=== PATIENT | male | born 1950 | race Caucasian/White ===

== ENCOUNTER 2017-04-29 07:27 | Inpatient (IN) | payer MEDICARE ==
[2017-04-29 08:31] LABS: BASOPHIL 1.4 % (0-2.0); EOSINOPHIL 1.7 % (0-4.5); MCH 30.4 pg (25.7-33.7); MCHC 33.5 g/dl (32.0-35.9); MEAN CELL VOLUME 90.9 fl (80-96); MEAN PLT VOLUME 7.9 fl (7.5-11.1); PLATELET COUNT 367 K/MM3 (134-434); RDW 14.8 % (11.9-15.9)
[2017-04-29 08:41] LABS: URINE APPEARANCE CLEAR; URINE BILIRUBIN NEGATIVE (NEGATIVE); URINE BLOOD 1+ (NEGATIVE); URINE COLOR LTYELLOW; URINE GLUCOSE (UA) 1+ (NEGATIVE); URINE KETONE NEGATIVE (NEGATIVE); URINE LEUK ESTERASE NEGATIVE (NEGATIVE); URINE NITRITE NEGATIVE (NEGATIVE); URINE PROTEIN NEGATIVE (NEGATIVE); URINE UROBILINOGEN NEGATIVE mg/dL (0.2-1.0)
[2017-04-29 08:48] LABS: URINE RBC 1 /hpf (0-3); URINE WBC <1 /hpf (3-5)
[2017-04-29 08:50] LABS: ALBUMIN 3.7 g/dl (3.4-5.0); ANION GAP 9 (8-16); BILIRUBIN,TOTAL 0.4 mg/dL (0.2-1.0); CALCIUM 9.3 mg/dL (8.5-10.1); CO2 30 mmol/L (21-32); CREATININE 1.2 mg/dL (0.7-1.3); GLUCOSE,RANDOM 122 mg/dL (74-106); MAGNESIUM 2.3 mg/dL (1.8-2.4); SGOT/AST 28 U/L (15-37); SGPT/ALT 48 U/L (12-78); TOT PROT 7.2 g/dl (6.4-8.2)
[2017-04-29 08:52] LABS: ALK PHOS 72 U/L (45-117); TROPONIN I 0.05 ng/ml (0.00-0.05)
[2017-04-29 08:58] LABS: INR 1.01 (0.82-1.09); PROTHROMBIN TIME (PATIENT) 11.1 SEC (9.98-11.88)
[2017-04-29 09:01] LABS: ACTIVATED PTT 34.7 SECONDS (26.9-34.4)
--- NOTE | 2017-04-29 09:05 | PDOC ---
History of Present Illness <Maggie Carroll - Last Filed: 04/29/17 10:09> - General History Source: Patient Exam Limitations: No Limitations - History of Present Illness Initial Comments: 04/29/17 10:08 The patient is a 66 year old male, with a significant past medical history of polycythemia, HTN and mini-strokes, and blood clots who presents to the emergency department with progressive SOB for 3 days. Pt states that he woke up in the middle of the night gasping for air and was unable to sleep prompting him to come to the ED today. He reports reduced ET to 2 blocks. Patient said he is experiencing a left-sided "soreness" in his chest. Pt states that he gets his blood drawn every two weeks but hasnt had his blood drawn for 2.5 weeks. He states that he feels better when he gets his blood drawn and he no longer feels tired. He also reports urinary frequency. PMD is Dr. Shaikh. He denies any recent fevers, chills, headache or dizziness. He denies any recent nausea, vomit, abdominal pain. He denies any recent dysuria, frequency, urgency or hematuria, focal weakness or numbness. Allergies: NKA Past surgical history: meniscus surgery 1 year ago Urologist: Dr. Mir Orthopedic: Dr. Logan. 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, SHORT TERM PROBLEMS) HTN: Yes Suicide Attempt (Hx): No - Surgical History Abdominal Surgery: Yes (HERNIA REPAIR) Orthopedic Surgery: Yes (SHOULDER SX) - Psycho/Social/Smoking Cessation Hx Anxiety: No Suicidal Ideation: No Smoking History: Never smoked Have you smoked in the past 12 months: No Hx Alcohol Use: No Drug/Substance Use Hx: No Substance Use Type: None Hx Substance Use Treatment: No <Nicky Stanley - Last Filed: 04/29/17 14:22> 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 History Allergies/Adverse Reactions: Allergies Allergy/AdvReac Type Severity Reaction Status Date / Time No Known Drug Allergies Allergy Verified 04/29/17 07:33 Home Medications: Ambulatory Orders Amlodipine Besylate [Norvasc -] 10 mg PO DAILY #14 tablet 03/23/15 Losartan Potassium [Cozaar -] 100 mg PO DAILY #14 tablet 03/23/15 Clonidine Patch [Catapres Tts Patch -] 0.3 mg TD WEEKLY 11/22/15 Review of Systems - Review of Systems Able to Perform ROS?: Yes Comments:: 04/29/17 10:08 GENERAL/CONSTITUTIONAL: No fever or chills. No weakness. HEAD, EYES, EARS, NOSE AND THROAT: No change in vision. No ear pain or discharge. No sore throat. CARDIOVASCULAR:+chest pain. +shortness of breath. RESPIRATORY: No cough, wheezing, or hemoptysis. GASTROINTESTINAL: No nausea, vomiting, diarrhea or constipation. GENITOURINARY: + urinary frequency. No dysuria. MUSCULOSKELETAL: No joint or muscle swelling or pain. No neck or back pain. SKIN: No rash NEUROLOGIC: No headache, vertigo, loss of consciousness, or change in strength/ sensation. ENDOCRINE: No increased thirst. No abnormal weight change. HEMATOLOGIC/LYMPHATIC:, +history of blood clots. No anemia, easy bleeding. ALLERGIC/IMMUNOLOGIC: No hives or skin allergy. <John Mckinley - Last Filed: 04/29/17 13:19> *Physical Exam - Vital Signs Last Vital Signs Temp Pulse Resp BP Pulse Ox 98.0 F 89 18 181/118 98 04/29/17 07:31 04/29/17 08:38 04/29/17 08:38 04/29/17 08:38 04/29/17 08:38 <Maggie Carroll - Last Filed: 04/29/17 10:09> - Vital Signs Last Vital Signs Temp Pulse Resp BP Pulse Ox 98.0 F 89 18 181/118 98 04/29/17 07:31 04/29/17 08:38 04/29/17 08:38 04/29/17 08:38 04/29/17 08:38 - Physical Exam Comments: 04/29/17 10:08 GENERAL: Awake, alert, and fully oriented, in mild resp distress HEAD: No signs of trauma EYES: PERRLA, EOMI, sclera anicteric, conjunctiva clear ENT: Auricles normal inspection, hearing grossly normal, nares patent, oropharynx clear without exudates. Moist mucosa NECK: Normal ROM, supple, no lymphadenopathy, JVD, or masses LUNGS: Breath sounds equal, clear to auscultation bilaterally. No wheezes, and no crackles. No increased work of breathing HEART: Regular rate and rhythm, normal S1 and S2, no murmurs, rubs or gallops ABDOMEN: Soft, nontender, normoactive bowel sounds. No guarding, no rebound. No masses EXTREMITIES: No calf tenderness, no swelling in lower extremeties. Normal range of motion, no edema. No clubbing or cyanosis. No cords, erythema. NEUROLOGICAL: Normal speech, cranial nerves intact, negative pronator drift, 5/ 5 strength in all 4 extremities, normal sensation to light touch in all 4 extremities, normal cerebellar exam, normal gait, normal reflexes and tone SKIN: Warm, Dry, normal turgor, no rashes or lesions noted. <John Mckinley - Last Filed: 04/29/17 13:19> - Vital Signs Last Vital Signs Temp Pulse Resp BP Pulse Ox 98.0 F 89 18 181/118 98 04/29/17 07:31 04/29/17 08:38 04/29/17 08:38 04/29/17 08:38 04/29/17 08:38 <Nicky Stanley - Last Filed: 04/29/17 14:22> Heart Score/ECG Review - ECG Impressions Comment:: 04/29/17 10:[address] Stanley EKG Interpretation: Normal sinus rhythm rate of 70, normal axis, normal intervals. T-wave inversions 1,2,3 avf, v6, st depressions, 1mm in leads 2,[address] elevation in v2 and v3. The only change from his previous EKG from March 15, 2015 is the t wave in v5 is pseudo-normalized. <John Mckinley - Last Filed: 04/29/17 13:19> - History History: Moderately suspicious - Electrocardiogram EKG: Significant ST-depression - Age Age: >/= 65 - Risk Factors Risk Factors Heart Score: Yes Hx Hypertension, Yes Positive family hx of cardiac disease, Yes Hx Obesity Based on the list above the patient has:: 1-2 risk factors - Troponin Troponin: </= normal limit - Score Heart Score - Total: 6 <Nicky Stanley - Last Filed: 04/29/17 14:22> ED Treatment Course - LABORATORY CBC & Chemistry Diagram: 04/29/17 08:15 04/29/17 08:15 - ADDITIONAL ORDERS Additional order review: Laboratory Results 04/29/17 04/29/17 04/29/17 08:18 08:15 08:15 INR PTT (Actin FS) Sodium 139 Potassium 4.4 Chloride 100 Carbon Dioxide 30 Anion Gap 9 BUN 16 D Creatinine 1.2 Creat Clearance w eGFR > 60 Random Glucose 122 H Calcium 9.3 Magnesium 2.3 Total Bilirubin 0.4 D AST 28 D ALT 48 D Alkaline Phosphatase 72 D Troponin I 0.05 D B-Natriuretic Peptide Total Protein 7.2 Albumin 3.7 Urine Color Ltyellow Urine Appearance Clear Urine pH 6.0 Urine Protein Negative Urine Glucose (UA) 1+ H Urine Ketones Negative Urine Blood 1+ H Urine Nitrite Negative Urine Bilirubin Negative Urine Urobilinogen Negative Ur Leukocyte Esterase Negative Urine RBC 1 Urine WBC <1 Blood Type O POSITIVE Antibody Screen Negative 04/29/17 04/29/17 08:15 08:15 INR 1.01 PTT (Actin FS) 34.7 H Sodium Potassium Chloride Carbon Dioxide Anion Gap BUN Creatinine Creat Clearance w eGFR Random Glucose Calcium Magnesium Total Bilirubin AST ALT Alkaline Phosphatase Troponin I B-Natriuretic Peptide 384.30 H Total Protein Albumin Urine Color Urine Appearance Urine pH Urine Protein Urine Glucose (UA) Urine Ketones Urine Blood Urine Nitrite Urine Bilirubin Urine Urobilinogen Ur Leukocyte Esterase Urine RBC Urine WBC Blood Type Antibody Screen 04/29/17 08:15 RBC 5.77 H MCV 90.9 MCHC 33.5 RDW 14.8 MPV 7.9 Neutrophils % 77.0 Lymphocytes % 13.0 Monocytes % 6.9 Eosinophils % 1.7 D Basophils % 1.4 - RADIOLOGY Radiograph Interpretation: 04/29/17 09:47 Chest X-Ray Reported by: Giovani Chan Impression:No significant interval change or acute lung disease is present <Maggie Carroll - Last Filed: 04/29/17 10:09> - LABORATORY CBC & Chemistry Diagram: 04/29/17 08:15 04/29/17 08:15 - ADDITIONAL ORDERS Additional order review: Laboratory Results 04/29/17 04/29/17 04/29/17 08:18 08:15 08:15 INR PTT (Actin FS) Sodium 139 Potassium 4.4 Chloride 100 Carbon Dioxide 30 Anion Gap 9 BUN 16 D Creatinine 1.2 Creat Clearance w eGFR > 60 Random Glucose 122 H Calcium 9.3 Magnesium 2.3 Total Bilirubin 0.4 D AST 28 D ALT 48 D Alkaline Phosphatase 72 D Troponin I 0.05 D B-Natriuretic Peptide Total Protein 7.2 Albumin 3.7 Urine Color Ltyellow Urine Appearance Clear Urine pH 6.0 Urine Protein Negative Urine Glucose (UA) 1+ H Urine Ketones Negative Urine Blood 1+ H Urine Nitrite Negative Urine Bilirubin Negative Urine Urobilinogen Negative Ur Leukocyte Esterase Negative Urine RBC 1 Urine WBC <1 Blood Type O POSITIVE Antibody Screen Negative 04/29/17 04/29/17 08:15 08:15 INR 1.01 PTT (Actin FS) 34.7 H Sodium Potassium Chloride Carbon Dioxide Anion Gap BUN Creatinine Creat Clearance w eGFR Random Glucose Calcium Magnesium Total Bilirubin AST ALT Alkaline Phosphatase Troponin I B-Natriuretic Peptide 384.30 H Total Protein Albumin Urine Color Urine Appearance Urine pH Urine Protein Urine Glucose (UA) Urine Ketones Urine Blood Urine Nitrite Urine Bilirubin Urine Urobilinogen Ur Leukocyte Esterase Urine RBC Urine WBC Blood Type Antibody Screen 04/29/17 08:15 RBC 5.77 H MCV 90.9 MCHC 33.5 RDW 14.8 MPV 7.9 Neutrophils % 77.0 Lymphocytes % 13.0 Monocytes % 6.9 Eosinophils % 1.7 D Basophils % 1.4 <John Mckinley - Last Filed: 04/29/17 13:19> - LABORATORY CBC & Chemistry Diagram: 04/29/17 08:15 04/29/17 08:15 - ADDITIONAL ORDERS Additional order review: Laboratory Results 04/29/17 04/29/17 04/29/17 08:18 08:15 08:15 Sodium 139 Potassium 4.4 Chloride 100 Carbon Dioxide 30 Anion Gap 9 BUN 16 D Creatinine 1.2 Creat Clearance w eGFR > 60 Random Glucose 122 H Calcium 9.3 Magnesium 2.3 Total Bilirubin 0.4 D AST 28 D ALT 48 D Alkaline Phosphatase 72 D Troponin I 0.05 D B-Natriuretic Peptide 384.30 H Total Protein 7.2 Albumin 3.7 Urine Color Ltyellow Urine Appearance Clear Urine pH 6.0 Urine Protein Negative Urine Glucose (UA) 1+ H Urine Ketones Negative Urine Blood 1+ H Urine Nitrite Negative Urine Bilirubin Negative Urine Urobilinogen Negative Ur Leukocyte Esterase Negative Urine RBC 1 Urine WBC <1 04/29/17 08:15 RBC 5.77 H MCV 90.9 MCHC 33.5 RDW 14.8 MPV 7.9 Neutrophils % 77.0 Lymphocytes % 13.0 Monocytes % 6.9 Eosinophils % 1.7 D Basophils % 1.4 - RADIOLOGY Radiology Studies Ordered: Category Date Time Status CHEST X-RAY PORTABLE* [RAD] Stat Radiology 04/29/17 08:09 Completed <Nicky Stanley - Last Filed: 04/29/17 14:22> Medical Decision Making - Medical Decision Making 04/29/17 09:16 66-year-old male history of polycythemia presents with progressive shortness of breath for 3 days. Vitals remarkable for hypertension to the 180s over 70s. Oxygenation ranges between 95 and 99% on the monitor. Exam is unremarkable, with clear lungs, no LE edema or pain. Concern given patient's history for pulmonary embolism, however ACS versus CHF versus polycythemia may be etiology of patient's shortness of breath especially given the fact the patient has not had phlebotomy for 2.5 weeks. Plan as follows: -labs -CXR -consider CTA Chest -likely admit 04/29/17 10:01 CBC,CMP WBC 14.0 K/mm3 (4.0-10.0) H D 04/29/17 08:15 RBC 5.77 M/mm3 (4.00-5.60) H 04/29/17 08:15 Hgb 17.6 GM/dL (11.7-16.9) H 04/29/17 08:15 Hct 52.5 % (35.4-49) H 04/29/17 08:15 MCV 90.9 fl (80-96) 04/29/17 08:15 MCH 30.4 pg (25.7-33.7) 04/29/17 08:15 MCHC 33.5 g/dl (32.0-35.9) 04/29/17 08:15 RDW 14.8 % (11.9-15.9) 04/29/17 08:15 Plt Count 367 K/MM3 (134-434) 04/29/17 08:15 MPV 7.9 fl (7.5-11.1) 04/29/17 08:15 Neutrophils % 77.0 % (42.8-82.8) 04/29/17 08:15 Lymphocytes % 13.0 % (8-40) 04/29/17 08:15 Monocytes % 6.9 % (3.8-10.2) 04/29/17 08:15 Eosinophils % 1.7 % (0-4.5) D 04/29/17 08:15 Basophils % 1.4 % (0-2.0) 04/29/17 08:15 Sodium 139 mmol/L (136-145) 04/29/17 08:15 Potassium 4.4 mmol/L (3.5-5.1) 04/29/17 08:15 Chloride 100 mmol/L (98-107) 04/29/17 08:15 Carbon Dioxide 30 mmol/L (21-32) 04/29/17 08:15 Anion Gap 9 (8-16) 04/29/17 08:15 BUN 16 mg/dL (7-18) D 04/29/17 08:15 Creatinine 1.2 mg/dL (0.7-1.3) 04/29/17 08:15 Creat Clearance w eGFR > 60 (>60) 04/29/17 08:15 Random Glucose 122 mg/dL (74-106) H 04/29/17 08:15 Calcium 9.3 mg/dL (8.5-10.1) 04/29/17 08:15 Magnesium 2.3 mg/dL (1.8-2.4) 04/29/17 08:15 Total Bilirubin 0.4 mg/dL (0.2-1.0) D 04/29/17 08:15 AST 28 U/L (15-37) D 04/29/17 08:15 ALT 48 U/L (12-78) D 04/29/17 08:15 Alkaline Phosphatase 72 U/L (45-117) D 04/29/17 08:15 Troponin I 0.05 ng/ml (0.00-0.05) D 04/29/17 08:15 B-Natriuretic Peptide 384.30 pg/ml (5-125) H 04/29/17 08:15 Total Protein 7.2 g/dl (6.4-8.2) 04/29/17 08:15 Albumin 3.7 g/dl (3.4-5.0) 04/29/17 08:15 Hemoglobin elevated at 17.6. Troponin negative. BNP mildly elevated - possible CHF? CXR clear. We'll order a CTA of the chest to evaluate for pulmonary embolism. 04/29/17 13:22 CTA chest negative for PE. Concern for ACS, pt is moderate risk. Ordered trop 2 , paged Dr. Shaikh to discuss the case. 04/29/17 13:55 We have not heard from Dr. Shaikh. I spoke with the patient and his son and updated him about all of the lab and radiology findings. I discussed that I was concerned about a cardiac etiology for his chest pain and shortness of breath. Will page the hospitalist to admit the patient for an ACS rule out. 04/29/17 14:17 Hospitalist does not admit for Dr. Shaikh. Spoke with Dr. Ying who admits for him and agrees with admission for telemetry and requests that we call Dr. Frazier from cardiology and Dr. Grace from hematology. We have paged both doctors in our waiting a callback. <Nicky Stanley - Last Filed: 04/29/17 14:22> *DC/Admit/Observation/Transfer - Attestations Scribe Attestion: 04/29/17 10:10 Documentation prepared by Maggie Carroll, acting as manager medical affairs for Nicky Stanley MD. <Maggie Carroll - Last Filed: 04/29/17 10:09> <John Mckinley - Last Filed: 04/29/17 13:19> - Discharge Dispostion Admit: Yes - Attestations Physician Attestion: 04/29/17 13:55 I, Dr. Nicky Stanley MD, attest that this document has been prepared under my direction and personally reviewed by me in its entirety. I further attest, that it accurately reflects all work, treatment, procedures and medical decision -making performed by me. <Nicky Stanley - Last Filed: 04/29/17 14:22> Diagnosis at time of Disposition: Chest pain Qualifiers: Chest pain type: other chest pain Qualified Code(s): R07.89 - Other chest pain - Discharge Dispostion Condition at time of disposition: Stable - Referrals Referrals: Tulio Shaikh [Primary Care Provider] -
--- NOTE | 2017-04-29 16:23 | CON.CARD ---
Consult Consult Specialty:: Cardiology Referred by:: ED: Dr. Stanley and Dr. Shaikh Reason for Consultation:: Worsening exertional dyspnea and chest pain. - History of Present Illness History of Present Illness: 66 year old rae with a PMHx of HTN, TIAs, polycythemia vera, and blood clots who presents to the emergency department 04/29/2017 with progressive shortness breath and chest discomfort. Patient has been experiencing exertional shortness of breath and chest discomfort for 3 day. His exercise tolerance decreased markedly. He had one episode of PND last night. But he has no shortness of breath or chest pain at rest. He denies palpitation, dizziness, syncope, near syncope, edema or orthopnea. He states that he gets his blood drawn every two weeks but hasnt had his blood drawn for 2.5 weeks. He states that he feels better when he gets his blood drawn and he no longer feels tired. He also reports urinary frequency. His ECG 04/29/2017 showed sinus rhythm. LVH with inferolateral ischemia. Troponin is within normal range. Pro-BNP is mildly elevated. 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 Cardio/Vascular: Yes: HTN Heme/Onc: Yes: Other (Polycethemia vera) - Alcohol/Substance Use Hx Alcohol Use: No - Smoking History Smoking history: Never smoked Have you smoked in the past 12 months: No - Social History History of Recent Travel: No Home Medications - Allergies Allergies/Adverse Reactions: Allergies Allergy/AdvReac Type Severity Reaction Status Date / Time No Known Drug Allergies Allergy Verified 04/29/17 07:33 - Home Medications Home Medications: Ambulatory Orders Losartan Potassium [Cozaar -] 100 mg PO DAILY #14 tablet 03/23/15 Clonidine Patch [Catapres Tts Patch -] 0.3 mg TD WEEKLY 11/22/15 Amlodipine Besylate [Norvasc -] 5 mg PO DAILY 04/29/17 [place]-3 Fatty Acids [[place]-3] 1,000 mg PO DAILY 04/29/17 Review of Systems - Review of Systems Constitutional: reports: No Symptoms Eyes: reports: No Symptoms HENT: reports: No Symptoms Neck: reports: No Symptoms Cardiovascular: reports: Chest Pain, Shortness of Breath Respiratory: reports: Exercise Intolerance, SOB, SOB on Exertion Gastrointestinal: reports: No Symptoms Genitourinary: reports: No Symptoms Musculoskeletal: reports: No Symptoms Integumentary: reports: No Symptoms Neurological: reports: No Symptoms Endocrine: reports: No Symptoms Hematology/Lymphatic: reports: Other (Polycythemia vera) Vital Signs: Vital Signs Temperature 98.6 F 04/29/17 15:11 Pulse Rate 81 04/29/17 15:11 Respiratory Rate 16 04/29/17 15:11 Blood Pressure 177/98 04/29/17 15:11 O2 Sat by Pulse Oximetry (%) 96 04/29/17 15:11 Constitutional: Yes: Well Nourished, No Distress, Calm, Other (Facial plethora) Eyes: Yes: WNL, Conjunctiva Clear HENT: Yes: WNL Neck: Yes: Supple, Trachea Midline Respiratory: Yes: Regular, Rales (Minimal bibasilar rales.), Other (Minimal bibasilar rales.) Gastrointestinal: Yes: Normal Bowel Sounds, Soft, Abdomen, Obese Renal/: Yes: WNL Cardiovascular: Yes: Regular Rate and Rhythm JVD: No Carotid Bruit: No PMI: Non-Displaced Heart Sounds: Yes: S1, S2 Musculoskeletal: Yes: WNL Extremities: Yes: WNL Edema: No Peripheral Pulses WNL: Yes Peripheral Pulses: 1+ Left Carotid, 1+ Right Carotid, 1+ Left Femoral, 1+ Right Femoral, 1+ Left Popliteal, 1+ Right Popliteal, 1+ Left Doralis Pedis, 1+ Right Dorsalis Pedis Neurological: Yes: WNL, Alert, Oriented - Other Data Labs, Other Data: CBC, BMP 04/29/17 08:15 04/29/17 08:15 INR, PTT INR 1.01 (0.82-1.09) 04/29/17 08:15 Troponin, BNP 04/29/17 04/29/17 04/29/17 08:15 08:15 14:00 Troponin I 0.05 D 0.04 B-Natriuretic Peptide 384.30 H Troponin, BNP 04/29/17 04/29/17 04/29/17 08:15 08:15 14:00 Troponin I 0.05 D 0.04 B-Natriuretic Peptide 384.30 H Imaging - Results X-ray: Report Reviewed (No pulmonary congestion.) EKG: Image Reviewed (Sinus rhythm, LVH. Inferolateral ischemia.) Assessment/Plan 66 year old rae with a PMHx of HTN, TIAs, polycythemia vera, and blood clots who presents to the emergency department 04/29/2017 with progressive shortness breath and chest discomfort. ECG 04/29/2017 showed sinus rhythm. LVH with inferolateral ischemia. Troponin is within normal range. Pro-BNP is mildly elevated. 1) Exertional chest discomfort with risk factors of CAD and ECG abnormalities, suggestive of myocardial ischemia. Pharmacological (Persantine) nuclear stress test to rule out myocardial ischemia. 2) Worsening dyspnea with mild pulmonary congestion on PE and elevated pro-BNP. Avoid diuretic before repeat phlebotomy for polycytemia. Obtain echo for cardiac function. 3) HTN. Resume Norvasc, Losartan and Clonidine patch. Monitor BP.
[2017-04-29 16:37] VITALS: BMI 28.0
[2017-04-29] MEDS ORDERED: ACETAMINOPHEN 325 MG TABLET (FP) PO PRN (17:53)
[2017-04-29] MEDS ORDERED: cloNIDine-TTS 0.3 MG /24 HRS PATCH.TDWK TD SCH (18:15)
[2017-04-29] MEDS ORDERED: amLODIPine BESYLATE 5 MG TABLET (FP) ONE (18:26)
[2017-04-29] MEDS ORDERED: LOSARTAN POTASSIUM 25 MG TABLET ONE (18:27)
[2017-04-29] MEDS: LOSARTAN POTASSIUM 50 MG TABLET (FP) PO SCH (18:32)
[2017-04-29] MEDS: amLODIPine BESYLATE 5 MG TABLET (FP) PO SCH (18:32)
[2017-04-29 22:10] LABS: TROPONIN I 0.04 ng/ml (0.00-0.05)
[2017-04-29] MEDS ORDERED: PT OWN MED DRAWER 7, Y5N ONE (22:51)
[2017-04-29] MEDS ORDERED: ZOLPIDEM TARTRATE 5 MG TABLET PO ONE (23:00)
[2017-04-30 07:44] LABS: ALBUMIN 3.4 g/dl (3.4-5.0); ANION GAP 9 (8-16); CALCIUM 8.7 mg/dL (8.5-10.1); CO2 31 mmol/L (21-32); CREATININE 1.2 mg/dL (0.7-1.3); GLUCOSE,RANDOM 111 mg/dL (74-106); SGOT/AST 25 U/L (15-37); SGPT/ALT 43 U/L (12-78)
[2017-04-30 07:46] LABS: ALK PHOS 63 U/L (45-117); BILIRUBIN,TOTAL 0.8 mg/dL (0.2-1.0); TOT PROT 6.5 g/dl (6.4-8.2)
[2017-04-30 08:18] LABS: MCH 30.5 pg (25.7-33.7); MCHC 33.2 g/dl (32.0-35.9); MEAN CELL VOLUME 91.8 fl (80-96); MEAN PLT VOLUME 8.4 fl (7.5-11.1); PLATELET COUNT 354 K/MM3 (134-434); RDW 15.2 % (11.9-15.9); WHITE BLOOD COUNT 12.4 K/mm3 (4.0-10.0)
[2017-04-30] MEDS ORDERED: DIPYRIDAMOLE 50 MG/10 ML VIAL IVPB ONE (10:51)
[2017-04-30] MEDS ORDERED: DIPYRIDAMOLE STRESS TEST 50 MG in DEXTROSE 5%-WATER - 40 ML IVPB ONE (13:30)
--- NOTE | 2017-04-30 14:18 | CON.PULM ---
Consult Consult Specialty:: PULMONARY Referred by:: Dr. Ying Reason for Consultation:: shortness of breath - History of Present Illness Chief Complaint: chest pain History of Present Illness: 66yo male with h/o HTN, polycythemia vera, h/o TIA who presents with worsening shortness of breath and chest pain. He states he has not been phlebotomized recently, usually gets it done every 2 weeks. No fevers, chills or sweats. No palpitations. Denies leg swelling, sleeps on 1 pillow but reports frequent paroxysmal nocturnal dyspnea. Found to be hypertensive, now just back from his nuclear stress test. Shortness of breath has resolved with better control of his blood pressure. He has been told that he snores. He does wake up with gasping sensations during the night. He does not feel rested upon awakening and reports excessive daytime somnolence. 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 Cardio/Vascular: Yes: HTN - Alcohol/Substance Use Hx Alcohol Use: No - Smoking History Smoking history: Never smoked Have you smoked in the past 12 months: No - Social History History of Recent Travel: No Home Medications - Allergies Allergies/Adverse Reactions: Allergies Allergy/AdvReac Type Severity Reaction Status Date / Time No Known Drug Allergies Allergy Verified 04/29/17 07:33 - Home Medications Home Medications: Ambulatory Orders Losartan Potassium [Cozaar -] 100 mg PO DAILY #14 tablet 03/23/15 Clonidine Patch [Catapres Tts Patch -] 0.3 mg TD WEEKLY 11/22/15 Amlodipine Besylate [Norvasc -] 5 mg PO DAILY 04/29/17 [place]-3 Fatty Acids [[place]pi[place]-3] 1,000 mg PO DAILY 04/29/17 Review of Systems - Review of Systems Constitutional: denies: Chills, Fever Eyes: denies: Recent Change in Vision HENT: denies: Nasal Congestion, Throat Pain Neck: denies: Stiffness, Tenderness Cardiovascular: reports: Chest Pain, Shortness of Breath. denies: Edema, Palpitations Respiratory: reports: SOB. denies: Cough, Hemoptysis, Wheezing Gastrointestinal: denies: Abdominal Pain, Nausea, Vomiting Genitourinary: denies: Dysuria, Hematuria Neurological: denies: Dizziness, Headache Endocrine: denies: Unexplained Weight Loss Physical Exam Vital Sings: Vital Signs Temperature 98.2 F 04/30/17 10:00 Pulse Rate 72 04/30/17 10:00 Respiratory Rate 16 04/30/17 10:00 Blood Pressure 162/80 04/30/17 10:00 O2 Sat by Pulse Oximetry (%) 97 04/30/17 09:00 Constitutional: Yes: Calm Eyes: Yes: Conjunctiva Clear, EOM Intact HENT: Yes: Atraumatic, Normocephalic Neck: Yes: Supple, Trachea Midline Cardiovascular: Yes: Regular Rate and Rhythm Respiratory: Yes: Diminished (decreased breath sounds at the bases) ...Clubbing: No Gastrointestinal: Yes: Normal Bowel Sounds, Soft. No: Tenderness Edema: No Neurological: Yes: Alert, Oriented Labs: CBC, BMP 04/30/17 05:35 04/30/17 05:35 Imaging - Results Chest X-ray: Report Reviewed, Image Reviewed Cat Scan: Report Reviewed, Image Reviewed Problem List - Problems (1) Chest pain Code(s): R07.9 - CHEST PAIN, UNSPECIFIED Qualifiers: Chest pain type: other chest pain Qualified Code(s): R07.89 - Other chest pain; R07.8 - Other chest pain (2) Hypertension Code(s): I10 - ESSENTIAL (PRIMARY) HYPERTENSION Qualifiers: Hypertension type: essential hypertension (3) Polycythemia Code(s): D75.1 - SECONDARY POLYCYTHEMIA (4) Obstructive sleep apnea Code(s): G47.33 - OBSTRUCTIVE SLEEP APNEA (ADULT) (PEDIATRIC) Assessment/Plan Chest Pain/Shortness of Breath ?Hypertensive Urgency Likely Obstructive Sleep Apnea Polycythemia Vera - BP control - f/u stress test - echocardiogram - consult hematology for phlebotomy - will need outpt PSG Thank you for this consult Tulio Lynne MD
[2017-04-30] MEDS: LOSARTAN POTASSIUM 50 MG TABLET (FP) PO SCH (14:38)
[2017-04-30] MEDS: amLODIPine BESYLATE 5 MG TABLET (FP) PO SCH (14:38)
--- NOTE | 2017-04-30 15:04 | PN ---
Progress Note, Physician Chief Complaint: Patient appears comfortable. He has no recurrent chest pain or SOB at rest. History of Present Illness: 66 year old rae with a PMHx of HTN, TIAs, polycythemia vera, and blood clots who presents to the emergency department 04/29/2017 with progressive shortness breath and chest discomfort. Patient has been experiencing exertional shortness of breath and chest discomfort for 3 day. His exercise tolerance decreased markedly. He had one episode of PND last night. But he has no shortness of breath or chest pain at rest. He denies palpitation, dizziness, syncope, near syncope, edema or orthopnea. He states that he gets his blood drawn every two weeks but hasnt had his blood drawn for 2.5 weeks. He states that he feels better when he gets his blood drawn and he no longer feels tired. He also reports urinary frequency. His ECG 04/29/2017 showed sinus rhythm. LVH with inferolateral ischemia. Troponin is within normal range. Pro-BNP is mildly elevated. Persantine nuclear stress test 04/30/2017 revealed small fixed defect in the base to mid inferior wall. No stress induced ischemia. Gated study showed moderate LV systolic dysfunction. LVEF = 34%. Echo is pending. - Current Medication List Current Medications: Active Medications Acetaminophen (Tylenol -) 650 mg PO Q6H PRN PRN Reason: FEVER OR PAIN Amlodipine Besylate (Norvasc -) 5 mg PO DAILY [facility] Last Admin: 04/30/17 14:38 Dose: 5 mg Clonidine HCl (Catapres Tts Patch -) 0.3 mg TD We@10 [facility] Last Admin: 04/29/17 18:32 Dose: 0.3 mg Losartan Potassium (Cozaar -) 100 mg PO DAILY [facility] Last Admin: 04/30/17 14:38 Dose: 100 mg - Objective Vital Signs: Vital Signs Temperature 98.2 F 04/30/17 10:00 Pulse Rate 72 04/30/17 10:00 Respiratory Rate 16 04/30/17 10:00 Blood Pressure 162/80 04/30/17 10:00 O2 Sat by Pulse Oximetry (%) 97 04/30/17 09:00 Constitutional: Yes: Well Nourished, No Distress Eyes: Yes: WNL, Conjunctiva Clear HENT: Yes: Atraumatic, Normocephalic Neck: Yes: WNL, Supple, Trachea Midline Cardiovascular: Yes: Regular Rate and Rhythm, S1, S2 Respiratory: Yes: Regular, CTA Bilaterally Gastrointestinal: Yes: Normal Bowel Sounds, Soft ...Rectal Exam: Yes: Deferred Musculoskeletal: Yes: WNL Extremities: Yes: WNL Edema: No Peripheral Pulses WNL: Yes Labs: CBC, BMP 04/30/17 05:35 04/30/17 05:35 INR, PTT INR 1.01 (0.82-1.09) 04/29/17 08:15 Assessment/Plan 66 year old rae with a PMHx of HTN, TIAs, polycythemia vera, and blood clots who presents to the emergency department 04/29/2017 with progressive shortness breath and chest discomfort. ECG 04/29/2017 showed sinus rhythm. LVH with inferolateral ischemia. Troponin is within normal range. Pro-BNP is mildly elevated. 1) Exertional chest discomfort with risk factors of CAD and ECG abnormalities. Persantine nuclear stress test 04/30/2017 showed a small fixed defect in the inferior wall without stress induced ischemia. Moderate LV systolic function with LVEF 34% from gated study. Echo is pending. Add Aspirin 81 mg daily. 2) Worsening dyspnea with mild pulmonary congestion on PE and elevated pro-BNP. Pulmonary consult appreciated. Avoid diuretic before repeat phlebotomy for polycytemia. Echo is pending.. 3) HTN. BP is elevated. Increase Norvasc to 10 mg daily. Continue Losartan and Clonidine patch. Monitor BP.
--- NOTE | 2017-04-30 16:22 | CONSULT ---
Consult Consult Specialty:: infectious diseases Reason for Consultation:: leukocytosis - History of Present Illness Chief Complaint: stress,high bp History of Present Illness: 66yo male with h/o HTN, polycythemia vera, h/o TIA who presents with worsening shortness of breath and chest pain. He states he has not been phlebotomized recently, usually gets it done every 2 weeks. No fevers, chills or sweats. No palpitations. patient mentions that he becomes short of breath and he came here because his bp had gone very high Currently patient is abck fro stress test and is comfortable patients face looks flushed Denies leg swelling, of note is that he gets up in the middle of night and feels very sob and then he setteles down patient was admitted and worked up and found to have leukocytosis which is improving - History Source History Provided By: Patient Limitations to Obtaining History: No Limitations 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 History RECYCLER: Yes: TIA Cardio/Vascular: Yes: HTN - Alcohol/Substance Use Hx Alcohol Use: No - Smoking History Smoking history: Never smoked Have you smoked in the past 12 months: No - Social History History of Recent Travel: No Home Medications - Allergies Allergies/Adverse Reactions: Allergies Allergy/AdvReac Type Severity Reaction Status Date / Time No Known Drug Allergies Allergy Verified 04/29/17 07:33 - Home Medications Home Medications: Ambulatory Orders Losartan Potassium [Cozaar -] 100 mg PO DAILY #14 tablet 03/23/15 Clonidine Patch [Catapres Tts Patch -] 0.3 mg TD WEEKLY 11/22/15 Amlodipine Besylate [Norvasc -] 5 mg PO DAILY 04/29/17 [place]-3 Fatty Acids [[place]-3] 1,000 mg PO DAILY 04/29/17 Review of Systems - Review of Systems Constitutional: reports: Other Eyes: reports: No Symptoms HENT: reports: No Symptoms Neck: reports: No Symptoms Cardiovascular: reports: Chest Pain Respiratory: reports: SOB, SOB on Exertion Gastrointestinal: reports: No Symptoms Genitourinary: reports: No Symptoms Musculoskeletal: reports: No Symptoms Integumentary: reports: No Symptoms Neurological: reports: No Symptoms Endocrine: reports: No Symptoms Hematology/Lymphatic: reports: No Symptoms Psychiatric: reports: No Symptoms Physical Exam Vital Signs: Vital Signs Temperature 98.6 F 04/30/17 15:00 Pulse Rate 75 04/30/17 15:00 Respiratory Rate 16 04/30/17 15:00 Blood Pressure 133/68 04/30/17 15:00 O2 Sat by Pulse Oximetry (%) 97 04/30/17 09:00 Constitutional: Yes: No Distress, Calm, Other Eyes: Yes: Conjunctiva Clear HENT: Yes: Atraumatic, Other (flushed face) Neck: Yes: Supple Cardiovascular: Yes: Regular Rate and Rhythm Respiratory: Yes: Regular, Poor Air Entry (bases) Gastrointestinal: Yes: Normal Bowel Sounds, Soft Musculoskeletal: Yes: WNL Extremities: Yes: WNL Neurological: Yes: Alert, Oriented Psychiatric: Yes: Alert, Oriented Labs: CBC, BMP 04/30/17 05:35 04/30/17 05:35 Imaging - Results Chest X-ray: Report Reviewed, Image Reviewed Cat Scan: Report Reviewed, Image Reviewed Assessment/Plan Problem List - Problems (1) Chest pain Code(s): R07.9 - CHEST PAIN, UNSPECIFIED Qualifiers: Chest pain type: other chest pain Qualified Code(s): R07.89 - Other chest pain; R07.8 - Other chest pain (2) Hypertension Code(s): I10 - ESSENTIAL (PRIMARY) HYPERTENSION Qualifiers: Hypertension type: essential hypertension (3) Polycythemia Code(s): D75.1 - SECONDARY POLYCYTHEMIA (4) Obstructive sleep apnea Code(s): G47.33 - OBSTRUCTIVE SLEEP APNEA (ADULT) (PEDIATRIC) i think all of his symptoms are probably due to combination of his chana and polycythemia wbc are trending down plan will not start him on anything at the moment continue to monitor thx
--- NOTE | 2017-04-30 20:48 | HP ---
Admitting History and Physical - Primary Care Physician PCP: Akash Ying - Admission Chief Complaint: CHEST PAIN/DYSPNEA History of Present Illness: The patient is a 66 year old male, with a significant past medical history of polycythemia, HTN and mini-strokes, and blood clots who presents to the emergency department with progressive SOB for 3 days. Pt states that he woke up in the middle of the night gasping for air and was unable to sleep prompting him to come to the ED today. He reports reduced ET to 2 blocks. Patient said he is experiencing a left-sided "soreness" in his chest. Pt states that he gets his blood drawn every two weeks but hasnt had his blood drawn for 2.5 weeks. He states that he feels better when he gets his blood drawn and he no longer feels tired. He also reports urinary frequency. PMD is Dr. Shaikh. He denies any recent fevers, chills, headache or dizziness. He denies any recent nausea, vomit, abdominal pain. He denies any recent dysuria, frequency, urgency or hematuria, focal weakness or numbness. 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 Cardiovascular: Yes: HTN Heme/Onc: Yes: Other (Polycethemia vera) - Smoking History Smoking history: Never smoked Have you smoked in the past 12 months: No - Alcohol/Substance Use Hx Alcohol Use: No - Social History History of Recent Travel: No Home Medications - Allergies Allergies/Adverse Reactions: Allergies Allergy/AdvReac Type Severity Reaction Status Date / Time No Known Drug Allergies Allergy Verified 04/29/17 07:33 - Home Medications Home Medications: Ambulatory Orders Losartan Potassium [Cozaar -] 100 mg PO DAILY #14 tablet 03/23/15 Clonidine Patch [Catapres Tts Patch -] 0.3 mg TD WEEKLY 11/22/15 Amlodipine Besylate [Norvasc -] 5 mg PO DAILY 04/29/17 [place]-3 Fatty Acids [[place]erry-3] 1,000 mg PO DAILY 04/29/17 Review of Systems - Review of Systems Constitutional: reports: Loss of Appetite, Weakness Eyes: reports: No Symptoms HENT: reports: No Symptoms Neck: reports: No Symptoms Cardiovascular: reports: Chest Pain, Shortness of Breath Respiratory: reports: Cough, Snoring, SOB Gastrointestinal: reports: No Symptoms Genitourinary: reports: No Symptoms Musculoskeletal: reports: Muscle Weakness Integumentary: reports: No Symptoms Neurological: reports: Pre-Existing Deficit Endocrine: reports: No Symptoms Hematology/Lymphatic: reports: No Symptoms Psychiatric: reports: Other Physical Examination Vital Signs: Vital Signs Temperature 98.5 F 04/30/17 17:00 Pulse Rate 76 04/30/17 17:00 Respiratory Rate 20 04/30/17 17:00 Blood Pressure 157/88 04/30/17 17:00 O2 Sat by Pulse Oximetry (%) 97 04/30/17 09:00 Constitutional: Yes: Moderate Distress Eyes: Yes: WNL HENT: Yes: WNL Neck: Yes: WNL Cardiovascular: Yes: Regular Rate and Rhythm, Murmur Respiratory: Yes: On Nasal O2, SOB, SOB on Exertion Gastrointestinal: Yes: WNL Renal/: Yes: Incontinence Breast(s): Yes: Other Musculoskeletal: Yes: Muscle Weakness Extremities: Yes: WNL Edema: No Peripheral Pulses WNL: Yes Integumentary: Yes: WNL Wound/Incision: Yes: Clean/Dry Neurological: Yes: Pre-Existing Deficit ...Motor Strength: LLE, RLE Psychiatric: Yes: Other Labs: CBC, BMP 04/30/17 05:35 04/30/17 05:35 Imaging - Results Chest X-ray: Report Reviewed Other: Report Reviewed Problem List - Problems (1) Chest pain Code(s): R07.9 - CHEST PAIN, UNSPECIFIED Qualifiers: Chest pain type: other chest pain Qualified Code(s): R07.89 - Other chest pain; R07.8 - Other chest pain (2) Obstructive sleep apnea Code(s): G47.33 - OBSTRUCTIVE SLEEP APNEA (ADULT) (PEDIATRIC) (3) Headache Code(s): R51 - HEADACHE Qualifiers: Headache type: tension-type Headache chronicity pattern: acute headache Intractability: not intractable Qualified Code(s): G44.209 - Tension-type headache, unspecified, not intractable (4) Hypertension Code(s): I10 - ESSENTIAL (PRIMARY) HYPERTENSION Qualifiers: Hypertension type: essential hypertension Assessment/Plan STRESS TEST PENDING ECHO ORDERED MAY NEED CARDIAC CATH CARDIOLOGY AND PULMONARY EVAL LIPID PANEL A1C PT EVAL DIETARY CONSULT
[2017-05-01 09:29] LABS: MCHC 32.6 g/dl (32.0-35.9); MEAN CELL VOLUME 91.8 fl (80-96); MEAN PLT VOLUME 7.9 fl (7.5-11.1); PLATELET COUNT 325 K/MM3 (134-434); RDW 14.9 % (11.9-15.9); WHITE BLOOD COUNT 11.2 K/mm3 (4.0-10.0)
[2017-05-01 10:21] LABS: ALBUMIN 3.2 g/dl (3.4-5.0); ANION GAP 5 (8-16); BILIRUBIN,TOTAL 0.6 mg/dL (0.2-1.0); CALCIUM 8.9 mg/dL (8.5-10.1); CO2 33 mmol/L (21-32); CREATININE 1.3 mg/dL (0.7-1.3); GLUCOSE,RANDOM 109 mg/dL (74-106); SGOT/AST 24 U/L (15-37); SGPT/ALT 43 U/L (12-78); TOT PROT 6.2 g/dl (6.4-8.2)
[2017-05-01 10:22] LABS: ALK PHOS 62 U/L (45-117)
[2017-05-01] MEDS ORDERED: SODIUM CHLORIDE 1,000 ML IV SCH (11:15)
[2017-05-01] MEDS: ASPIRIN COATED 81 MG TABLET.EC PO SCH (12:14)
[2017-05-01] MEDS: amLODIPine BESYLATE 10 MG TABLET (FP) PO SCH (12:14)
[2017-05-01] MEDS: LOSARTAN POTASSIUM 50 MG TABLET (FP) PO SCH (12:14)
--- NOTE | 2017-05-01 12:51 | PN ---
Progress Note (short form) - Note Progress Note: PULMONARY Denies shortness of breath or chest pain. Stress test without ischemic changed but showing EF 34%, echocardiogram with normal EF. Last Vital Signs Temp Pulse Resp BP Pulse Ox 98.2 F 62 14 172/98 98 05/01/17 09:00 05/01/17 12:14 05/01/17 12:14 05/01/17 12:14 04/30/17 21:00 Gen: NAD at rest Heart: RRR Lung: decreased breath sounds at the bases Abd: soft, nontender Ext: no edema CBC, BMP 05/01/17 08:58 05/01/17 08:58 Active Medications Acetaminophen (Tylenol -) 650 mg PO Q6H PRN PRN Reason: FEVER OR PAIN Amlodipine Besylate (Norvasc -) 10 mg PO DAILY [facility] Last Admin: 05/01/17 12:14 Dose: 10 mg Aspirin (Ecotrin -) 81 mg PO DAILY [facility] Last Admin: 05/01/17 12:14 Dose: 81 mg Clonidine HCl (Catapres Tts Patch -) 0.3 mg TD We@10 [facility] Last Admin: 04/29/17 18:32 Dose: 0.3 mg Sodium Chloride (Normal Saline -) 1,000 mls @ 100 mls/hr IV ASDIR [facility] Losartan Potassium (Cozaar -) 100 mg PO DAILY [facility] Last Admin: 05/01/17 12:14 Dose: 100 mg A/P Chest Pain/Shortness of Breath ?Hypertensive Urgency Likely Obstructive Sleep Apnea Polycythemia Vera - BP control - cardiology f/u - would reattempt phlebotomy - will need outpt PSG Problem List - Problems (1) Chest pain Code(s): R07.9 - CHEST PAIN, UNSPECIFIED Qualifiers: Chest pain type: other chest pain Qualified Code(s): R07.89 - Other chest pain; R07.8 - Other chest pain (2) Hypertension Code(s): I10 - ESSENTIAL (PRIMARY) HYPERTENSION Qualifiers: Hypertension type: essential hypertension (3) Polycythemia Code(s): D75.1 - SECONDARY POLYCYTHEMIA (4) Obstructive sleep apnea Code(s): G47.33 - OBSTRUCTIVE SLEEP APNEA (ADULT) (PEDIATRIC)
--- NOTE | 2017-05-01 13:19 | PN ---
Progress Note, Physician Chief Complaint: BP ELEVATED S/P CARDIAC WORKUP AWAIT CARDIOLOGY FOLLOW UP - Current Medication List Current Medications: Active Medications Acetaminophen (Tylenol -) 650 mg PO Q6H PRN PRN Reason: FEVER OR PAIN Amlodipine Besylate (Norvasc -) 10 mg PO DAILY [facility] Last Admin: 05/01/17 12:14 Dose: 10 mg Aspirin (Ecotrin -) 81 mg PO DAILY [facility] Last Admin: 05/01/17 12:14 Dose: 81 mg Clonidine HCl (Catapres Tts Patch -) 0.3 mg TD We@10 [facility] Last Admin: 04/29/17 18:32 Dose: 0.3 mg Sodium Chloride (Normal Saline -) 1,000 mls @ 100 mls/hr IV ASDIR [facility] Losartan Potassium (Cozaar -) 100 mg PO DAILY [facility] Last Admin: 05/01/17 12:14 Dose: 100 mg - Objective Vital Signs: Vital Signs Temperature 98.2 F 05/01/17 09:00 Pulse Rate 62 05/01/17 12:14 Respiratory Rate 14 05/01/17 12:14 Blood Pressure 172/98 05/01/17 12:14 O2 Sat by Pulse Oximetry (%) 98 04/30/17 21:00 Constitutional: Yes: Mild Distress Eyes: Yes: WNL HENT: Yes: WNL Neck: Yes: WNL Cardiovascular: Yes: WNL Respiratory: Yes: WNL Gastrointestinal: Yes: WNL Genitourinary: Yes: WNL Musculoskeletal: Yes: WNL Extremities: Yes: WNL Edema: No Peripheral Pulses WNL: Yes Integumentary: Yes: WNL Wound/Incision: Yes: Clean/Dry Neurological: Yes: WNL ...Motor Strength: WNL Psychiatric: Yes: WNL Labs: CBC, BMP 05/01/17 08:58 05/01/17 08:58 INR, PTT INR 1.01 (0.82-1.09) 04/29/17 08:15 Problem List - Problems (1) Chest pain Code(s): R07.9 - CHEST PAIN, UNSPECIFIED Qualifiers: Chest pain type: other chest pain Qualified Code(s): R07.89 - Other chest pain; R07.8 - Other chest pain (2) Obstructive sleep apnea Code(s): G47.33 - OBSTRUCTIVE SLEEP APNEA (ADULT) (PEDIATRIC) (3) Headache Code(s): R51 - HEADACHE Qualifiers: Headache type: tension-type Headache chronicity pattern: acute headache Intractability: not intractable Qualified Code(s): G44.209 - Tension-type headache, unspecified, not intractable (4) Hypertension Code(s): I10 - ESSENTIAL (PRIMARY) HYPERTENSION Qualifiers: Hypertension type: essential hypertension Assessment/Plan ADJUST BP MEDS MONITOR TODAY ON DIURETICS CHECK BUN/CREATININE TOMORROW ECHO NO ACUTE CHANGES HEME CONSULT FOR POLYCYTHEMIA
--- NOTE | 2017-05-01 14:24 | PN ---
Progress Note, Physician Chief Complaint: SOB improving BP elevated History of Present Illness: 66 year old rae with a PMHx of HTN, TIAs, polycythemia vera, and blood clots who presents to the emergency department 04/29/2017 with progressive shortness breath and chest discomfort. ECG 04/29/2017 showed sinus rhythm. LVH with inferolateral ischemia. Troponin is within normal range. Pro-BNP is mildly elevated. - Current Medication List Current Medications: Active Medications Acetaminophen (Tylenol -) 650 mg PO Q6H PRN PRN Reason: FEVER OR PAIN Amlodipine Besylate (Norvasc -) 10 mg PO DAILY [facility] Last Admin: 05/01/17 12:14 Dose: 10 mg Aspirin (Ecotrin -) 81 mg PO DAILY [facility] Last Admin: 05/01/17 12:14 Dose: 81 mg Clonidine HCl (Catapres Tts Patch -) 0.3 mg TD We@10 [facility] Last Admin: 04/29/17 18:32 Dose: 0.3 mg Sodium Chloride (Normal Saline -) 1,000 mls @ 100 mls/hr IV ASDIR [facility] Losartan Potassium (Cozaar -) 100 mg PO DAILY [facility] Last Admin: 05/01/17 12:14 Dose: 100 mg Triamterene/HCTZ (Dyazide 25/37.5mg) 1 cap PO DAILY [facility] - Objective Vital Signs: Vital Signs Temperature 98.2 F 05/01/17 09:00 Pulse Rate 62 05/01/17 12:14 Respiratory Rate 14 05/01/17 12:14 Blood Pressure 172/98 05/01/17 12:14 O2 Sat by Pulse Oximetry (%) 98 04/30/17 21:00 Constitutional: Yes: No Distress Neck: Yes: WNL Cardiovascular: Yes: Regular Rate and Rhythm, S1, S2. No: JVD, Murmur Respiratory: Yes: CTA Bilaterally Gastrointestinal: Yes: WNL Edema: No Labs: CBC, BMP 05/01/17 08:58 05/01/17 08:58 INR, PTT INR 1.01 (0.82-1.09) 04/29/17 08:15 Problem List - Problems (1) Chest pain Code(s): R07.9 - CHEST PAIN, UNSPECIFIED Qualifiers: Chest pain type: other chest pain Qualified Code(s): R07.89 - Other chest pain; R07.8 - Other chest pain (2) Hypertension Code(s): I10 - ESSENTIAL (PRIMARY) HYPERTENSION Qualifiers: Hypertension type: essential hypertension Assessment/Plan 66 year old rae with a PMHx of HTN, TIAs, polycythemia vera, and blood clots who presents to the emergency department 04/29/2017 with progressive shortness breath and chest discomfort. ECG 04/29/2017 showed sinus rhythm. LVH with inferolateral ischemia. Troponin is within normal range. Pro-BNP is mildly elevated. Persantine nuclear stress test 04/30/2017 showed a small fixed defect in the inferior wall without stress induced ischemia. Moderate LV systolic function with LVEF 34% from gated study. Echo 05/01/17 demonstrated normal LV and RV systolic function with no significant valve disease. 1) Chest pain/CAD No chest pain at this time. Nuclear stress test demonstrated small basal inferior wall scar but no area of ischemia. Normal LV systolic function on echocardigoram Would treat for CAD with scar on stress test. Aspirin 81mg daily. Would start statin if no contraindication. Ideally would be on a beta maryjane but on tele HR often running in the 50s so would hold for now and add in the future if patient tolerates it. 2) SOB Appreciate pulmonary consult CT chest with no PE or congestion. Euvolemic on Exam today. Echocardiogram with normal LV systolic function and no significant valve disease. No further cardiac testing Needs BP control 3) HTN. BP is elevated. Patient is on maxed doses of amlodipine, clonidine, and losartan. Will not tolerate bblocker at this time given bradycardia. Was started today on triamterene/hctz -Monitor vitals and chem-7 Patient needs sleep study as outpt if never had one to evaluate for chana MRI abdomen in 2014 with no adrenal masses. CTA 2015 with patent renal arteries.
[2017-05-01 15:44] LABS: BASOPHIL 0.6 % (0-2.0); EOSINOPHIL 1.7 % (0-4.5); MCH 30.6 pg (25.7-33.7); MCHC 33.4 g/dl (32.0-35.9); MEAN CELL VOLUME 91.8 fl (80-96); MEAN PLT VOLUME 8.1 fl (7.5-11.1); NEUTROPHILS 78.5 % (42.8-82.8); PLATELET COUNT 322 K/MM3 (134-434); RDW 14.8 % (11.9-15.9); WHITE BLOOD COUNT 12.3 K/mm3 (4.0-10.0)
[2017-05-01] MEDS: TRIAMTERENE AND HCTZ - 37.5 MG/25 MG CAPSULE PO SCH (16:00)
--- NOTE | 2017-05-01 16:22 | PN ---
Progress Note, Physician History of Present Illness: stable no new events events noted - Current Medication List Current Medications: Active Medications Acetaminophen (Tylenol -) 650 mg PO Q6H PRN PRN Reason: FEVER OR PAIN Amlodipine Besylate (Norvasc -) 10 mg PO DAILY [facility] Last Admin: 05/01/17 12:14 Dose: 10 mg Aspirin (Ecotrin -) 81 mg PO DAILY [facility] Last Admin: 05/01/17 12:14 Dose: 81 mg Clonidine HCl (Catapres Tts Patch -) 0.3 mg TD We@10 [facility] Last Admin: 04/29/17 18:32 Dose: 0.3 mg Sodium Chloride (Normal Saline -) 1,000 mls @ 100 mls/hr IV ASDIR [facility] Losartan Potassium (Cozaar -) 100 mg PO DAILY [facility] Last Admin: 05/01/17 12:14 Dose: 100 mg Triamterene/HCTZ (Dyazide 25/37.5mg) 1 cap PO DAILY [facility] - Objective Vital Signs: Vital Signs Temperature 98.1 F 05/01/17 14:36 Pulse Rate 77 05/01/17 14:36 Respiratory Rate 20 05/01/17 14:36 Blood Pressure 146/100 05/01/17 14:36 O2 Sat by Pulse Oximetry (%) 98 05/01/17 09:00 Constitutional: Yes: No Distress, Calm Cardiovascular: Yes: Regular Rate and Rhythm Respiratory: Yes: Regular, CTA Bilaterally Gastrointestinal: Yes: Normal Bowel Sounds, Soft Musculoskeletal: Yes: WNL Extremities: Yes: WNL Neurological: Yes: Alert, Oriented Psychiatric: Yes: Alert, Oriented Labs: CBC, BMP 05/01/17 14:30 INR, PTT INR 1.01 (0.82-1.09) 04/29/17 08:15 Assessment/Plan Problem List - Problems (1) Chest pain Code(s): R07.9 - CHEST PAIN, UNSPECIFIED Qualifiers: Chest pain type: other chest pain Qualified Code(s): R07.89 - Other chest pain; R07.8 - Other chest pain (2) Hypertension Code(s): I10 - ESSENTIAL (PRIMARY) HYPERTENSION Qualifiers: Hypertension type: essential hypertension (3) Polycythemia Code(s): D75.1 - SECONDARY POLYCYTHEMIA (4) Obstructive sleep apnea Code(s): G47.33 - OBSTRUCTIVE SLEEP APNEA (ADULT) (PEDIATRIC) i think all of his symptoms are probably due to combination of his chana and polycythemia wbc are trending down plan continue to monitor cardiology following
[2017-05-01 16:33] LABS: ALBUMIN 3.1 g/dl (3.4-5.0); ALK PHOS 69 U/L (45-117); ANION GAP 10 (8-16); BILIRUBIN,TOTAL 0.6 mg/dL (0.2-1.0); CALCIUM 8.7 mg/dL (8.5-10.1); CO2 27 mmol/L (21-32); CREATININE 1.4 mg/dL (0.7-1.3); GLUCOSE,RANDOM 138 mg/dL (74-106); SGOT/AST 28 U/L (15-37); SGPT/ALT 46 U/L (12-78); TOT PROT 6.2 g/dl (6.4-8.2)
--- NOTE | 2017-05-01 16:33 | CONSULT ---
Consult Consult Specialty:: Hematology/Oncology - History of Present Illness Chief Complaint: Headache History of Present Illness: is a 66 year old rae with a PMHx of HTN, TIAs, polycythemia vera, and ?? blood clots who presents to the emergency department 04/29/2017 with progressive shortness breath and chest discomfort. Hematology consulted for Polycythemia. He was seen and examined. He says he feels better in terms of his shortness of breath, he has no shortness of breath or chest pain at rest. He denies palpitation, dizziness, syncope, near syncope, edema or orthopnea. He did mention to me that he takes testosterone and also gets phlebotomy almost every 2.5-3weeks, but now he hasnt had his blood drawn for 2.5 weeks. Otherwise he denies any sx. 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 Cardio/Vascular: Yes: HTN - Alcohol/Substance Use Hx Alcohol Use: No - Smoking History Smoking history: Never smoked Have you smoked in the past 12 months: No - Social History History of Recent Travel: No Home Medications - Allergies Allergies/Adverse Reactions: Allergies Allergy/AdvReac Type Severity Reaction Status Date / Time No Known Drug Allergies Allergy Verified 04/29/17 07:33 - Home Medications Home Medications: Ambulatory Orders Losartan Potassium [Cozaar -] 100 mg PO DAILY #14 tablet 03/23/15 Clonidine Patch [Catapres Tts Patch -] 0.3 mg TD WEEKLY 11/22/15 Amlodipine Besylate [Norvasc -] 5 mg PO DAILY 04/29/17 [place]-3 Fatty Acids [[place]-3] 1,000 mg PO DAILY 04/29/17 Family Disease History - Family Disease History Family History: Denies Review of Systems - Review of Systems Cardiovascular: reports: Chest Pain Respiratory: reports: SOB. denies: Cough Gastrointestinal: denies: Abdominal Pain, Bloating, Constipation, Nausea, Rectal Bleeding, Vomiting Neurological: reports: Dizziness, Headache Hematology/Lymphatic: denies: Easily Bruised Physical Exam Vital Signs: Vital Signs Temperature 98.1 F 05/01/17 14:36 Pulse Rate 77 05/01/17 14:36 Respiratory Rate 20 05/01/17 14:36 Blood Pressure 146/100 05/01/17 14:36 O2 Sat by Pulse Oximetry (%) 98 05/01/17 09:00 Constitutional: Yes: No Distress, Anxious, Other (appears latha) Eyes: Yes: Conjunctiva Clear HENT: Yes: Atraumatic, Normocephalic Neck: Yes: Supple, Trachea Midline Cardiovascular: Yes: Regular Rate and Rhythm Respiratory: Yes: Regular, CTA Bilaterally Gastrointestinal: Yes: Normal Bowel Sounds. No: Hepatomegaly, Splenomegaly Edema: No Imaging - Results Cat Scan: Report Reviewed Problem List - Problems (1) Polycythemia Code(s): D75.1 - SECONDARY POLYCYTHEMIA (2) Hypertension Code(s): I10 - ESSENTIAL (PRIMARY) HYPERTENSION Qualifiers: Hypertension type: essential hypertension (3) Obstructive sleep apnea Code(s): G47.33 - OBSTRUCTIVE SLEEP APNEA (ADULT) (PEDIATRIC) Assessment/Plan Erythrocytosis likely secondary polycythemia HTN SOB. h/o TIA. -Phlebotomy done today, was able to remove about 175ml due to the viscous nature of the blood and blockage of the tube, attempted multiple times. -will assess based on repeat labs for a repeat session. -In the past ,P.vera w/u including a Bone marrow biopsy was done ( JAK2 exon 12/ 13 , Noble R were negative) and marrow did not show a primary P vera. This likely points towards a secondary cause, like testosterone supplements ( pt mentioned he receives them) or/and HEATHER. Sleep study to be done as an OP. -leucocytosis likely reactive/obesity -pt with reported h/o TIA , will need aspirin 81mg. ??h/o blood clots -cardiology/pulm eval noted will follow
--- NOTE | 2017-05-01 18:27 | CONSULT ---
Consult Consult Specialty:: Nephrology Reason for Consultation:: HTN and elevated creatinine - History of Present Illness Chief Complaint: shortness of breath History of Present Illness: Pt is a 66 year old male with pmhx of HTN, polycythemia, and CVA who presents to the ER with progressive shortness of breath for the last three days. He denies chest pain or palpitations. He denies hematuria or dysuria. He does however say that he has to get up about 5 times per night to urinate. He denies nsaid use. He does not remember his home medications. He says he may have seen Dr Howard in the past but does not remember. He is on testosterone supplements. Pt did have a ct scan on the 16 to r/o PE. I was called to evaluate him for elevated creatinine. 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 Cardio/Vascular: Yes: HTN Heme/Onc: Yes: Other (polycythemia) - Alcohol/Substance Use Hx Alcohol Use: No - Smoking History Smoking history: Never smoked Have you smoked in the past 12 months: No - Social History History of Recent Travel: No Home Medications - Allergies Allergies/Adverse Reactions: Allergies Allergy/AdvReac Type Severity Reaction Status Date / Time No Known Drug Allergies Allergy Verified 04/29/17 07:33 - Home Medications Home Medications: Ambulatory Orders Losartan Potassium [Cozaar -] 100 mg PO DAILY #14 tablet 03/23/15 Clonidine Patch [Catapres Tts Patch -] 0.3 mg TD WEEKLY 11/22/15 Amlodipine Besylate [Norvasc -] 5 mg PO DAILY 04/29/17 [place]-3 Fatty Acids [[place]-3] 1,000 mg PO DAILY 04/29/17 Family Disease History - Family Disease History Other Family History: hypertension runs in family Review of Systems - Review of Systems Constitutional: reports: Malaise Eyes: reports: No Symptoms HENT: reports: No Symptoms Neck: reports: No Symptoms Cardiovascular: reports: Shortness of Breath. denies: Edema, Palpitations Respiratory: reports: SOB on Exertion Gastrointestinal: reports: No Symptoms Genitourinary: reports: Frequency Musculoskeletal: reports: No Symptoms Integumentary: reports: No Symptoms Neurological: reports: No Symptoms Endocrine: reports: No Symptoms Hematology/Lymphatic: reports: No Symptoms Psychiatric: reports: No Symptoms Physical Exam Vital Signs: Vital Signs Temperature 98.1 F 05/01/17 14:36 Pulse Rate 77 05/01/17 14:36 Respiratory Rate 20 05/01/17 14:36 Blood Pressure 146/100 05/01/17 14:36 O2 Sat by Pulse Oximetry (%) 98 05/01/17 09:00 Constitutional: Yes: Calm Eyes: Yes: Conjunctiva Clear HENT: Yes: Atraumatic Neck: Yes: Supple Cardiovascular: Yes: S1, S2 Respiratory: Yes: CTA Bilaterally Gastrointestinal: Yes: Soft Renal/: Yes: WNL Musculoskeletal: Yes: WNL Edema: No Neurological: Yes: Oriented Psychiatric: Yes: Oriented Labs: CBC, BMP 05/01/17 14:30 05/01/17 14:30 Laboratory Tests 03/22/15 03/23/15 04/03/15 06:00 06:00 15:13 WBC Hgb Sodium Potassium Chloride Carbon Dioxide Anion Gap BUN Creatinine 0.9 0.9 1.2 D Total Testosterone Free Testosterone Testosterone Comment Urine Color Urine Appearance Urine pH Ur Specific Martin Urine Protein Urine Glucose (UA) Urine Ketones Urine Blood Urine Nitrite Urine Bilirubin Urine Urobilinogen Ur Leukocyte Esterase 05/29/15 12/28/15 04/29/17 12:25 10:50 08:15 WBC Hgb Sodium Potassium Chloride Carbon Dioxide Anion Gap BUN Creatinine 1.2 1.3 1.2 Total Testosterone Free Testosterone Testosterone Comment Urine Color Urine Appearance Urine pH Ur Specific Martin Urine Protein Urine Glucose (UA) Urine Ketones Urine Blood Urine Nitrite Urine Bilirubin Urine Urobilinogen Ur Leukocyte Esterase 04/29/17 04/30/17 05/01/17 08:18 05:35 08:58 WBC Hgb Sodium Potassium Chloride Carbon Dioxide Anion Gap BUN 19 H 22 H Creatinine 1.2 1.3 Total Testosterone Free Testosterone Testosterone Comment Urine Color Ltyellow Urine Appearance Clear Urine pH 6.0 Ur Specific Martin 1.020 Urine Protein Negative Urine Glucose (UA) 1+ H Urine Ketones Negative Urine Blood 1+ H Urine Nitrite Negative Urine Bilirubin Negative Urine Urobilinogen Negative Ur Leukocyte Esterase Negative 05/01/17 05/01/17 05/01/17 14:30 14:30 14:30 WBC 12.3 H Hgb 16.1 Sodium 138 Potassium 4.0 Chloride 101 Carbon Dioxide 27 Anion Gap 10 BUN 22 H Creatinine 1.4 H Total Testosterone Pending Free Testosterone Pending Testosterone Comment Pending Urine Color Urine Appearance Urine pH Ur Specific Martin Urine Protein Urine Glucose (UA) Urine Ketones Urine Blood Urine Nitrite Urine Bilirubin Urine Urobilinogen Ur Leukocyte Esterase Imaging - Results Cat Scan: Report Reviewed Problem List - Problems (1) Hypertension Code(s): I10 - ESSENTIAL (PRIMARY) HYPERTENSION Qualifiers: Hypertension type: essential hypertension (2) Polycythemia Code(s): D75.1 - SECONDARY POLYCYTHEMIA Assessment/Plan Current Medications Generic Name Dose Route Start Last Admin Trade Name Freq PRN Reason Stop Dose Admin Acetaminophen 650 mg 04/29/17 17:53 Tylenol - PO Q6H PRN FEVER OR PAIN Amlodipine Besylate 10 mg 05/01/17 10:00 05/01/17 12:14 Norvasc - PO 10 mg DAILY JULIETA Administration Aspirin 81 mg 05/01/17 10:00 05/01/17 12:14 Ecotrin - PO 81 mg DAILY JULIETA Administration Clonidine HCl 0.3 mg 04/29/17 18:15 04/29/17 18:32 Catapres Tts Patch - TD 0.3 mg We@10 JULIETA Administration Sodium Chloride 1,000 mls @ 100 mls/hr 05/01/17 11:15 05/01/17 11:15 Normal Saline - IV Not Given ASDIR JULIETA Losartan Potassium 100 mg 04/29/17 18:00 05/01/17 12:14 Cozaar - PO 100 mg DAILY JULIETA Administration Triamterene/HCTZ 1 cap 05/01/17 15:00 05/01/17 16:00 Dyazide 25/37.5mg PO 1 cap DAILY JULIETA Administration Impression 1. HTN 2. polycythemia 3. hx of CVA 4. dyspnea 5. chest pain 6. chronic testonerone supplementation 7. 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
[2017-05-01 21:53] LABS: MCH 30.5 pg (25.7-33.7); MCHC 33.2 g/dl (32.0-35.9); MEAN CELL VOLUME 91.9 fl (80-96); MEAN PLT VOLUME 8.2 fl (7.5-11.1); PLATELET COUNT 352 K/MM3 (134-434); RDW 15.2 % (11.9-15.9); WHITE BLOOD COUNT 11.9 K/mm3 (4.0-10.0)
[2017-05-01 22:30] LABS: URINE APPEARANCE CLEAR; URINE BILIRUBIN NEGATIVE (NEGATIVE); URINE BLOOD NEGATIVE (NEGATIVE); URINE COLOR STRAW; URINE GLUCOSE (UA) NEGATIVE (NEGATIVE); URINE KETONE NEGATIVE (NEGATIVE); URINE LEUK ESTERASE NEGATIVE (NEGATIVE); URINE NITRITE NEGATIVE (NEGATIVE); URINE PROTEIN NEGATIVE (NEGATIVE); URINE UROBILINOGEN NEGATIVE mg/dL (0.2-1.0)
[2017-05-01 22:49] LABS: URINE CREATININE 72.1 mg/dL (20-370)
[2017-05-02 08:15] LABS: MCH 30.6 pg (25.7-33.7); MCHC 33.6 g/dl (32.0-35.9); MEAN CELL VOLUME 91.1 fl (80-96); MEAN PLT VOLUME 8.2 fl (7.5-11.1); PLATELET COUNT 369 K/MM3 (134-434); RDW 14.7 % (11.9-15.9); WHITE BLOOD COUNT 11.1 K/mm3 (4.0-10.0)
[2017-05-02] MEDS ORDERED: PT OWN MED DRAWER 7, Y5N ONE (08:31)
[2017-05-02 08:35] LABS: ALBUMIN 3.5 g/dl (3.4-5.0); ANION GAP 8 (8-16); CALCIUM 8.9 mg/dL (8.5-10.1); CO2 30 mmol/L (21-32); GLUCOSE,RANDOM 103 mg/dL (74-106)
[2017-05-02 08:39] LABS: ALK PHOS 69 U/L (45-117); BILIRUBIN,TOTAL 0.6 mg/dL (0.2-1.0); CREATININE 1.2 mg/dL (0.7-1.3); SGOT/AST 26 U/L (15-37); SGPT/ALT 47 U/L (12-78); TOT PROT 6.8 g/dl (6.4-8.2)
[2017-05-02] MEDS: amLODIPine BESYLATE 10 MG TABLET (FP) PO SCH (09:24)
[2017-05-02] MEDS: ASPIRIN COATED 81 MG TABLET.EC PO SCH (09:24)
[2017-05-02] MEDS: LOSARTAN POTASSIUM 50 MG TABLET (FP) PO SCH (09:24)
[2017-05-02] MEDS: TRIAMTERENE AND HCTZ - 37.5 MG/25 MG CAPSULE PO SCH (09:33)
--- NOTE | 2017-05-02 12:59 | PN ---
Progress Note (short form) - Note Progress Note: RENAL Pt is awake and alert denies complaints today says he gets testostrone injections and does not want them to stop Last Vital Signs Temp Pulse Resp BP Pulse Ox 98.1 F 58 L 18 141/88 98 05/02/17 00:58 05/02/17 00:58 05/02/17 00:58 05/02/17 00:58 05/01/17 21:00 facial plethora -jvd lungs clear cvs s1s2 rr abd soft ext no edema neuro a+ox3 CBC, BMP 05/02/17 06:05 05/02/17 06:05 Current Medications Generic Name Dose Route Start Last Admin Trade Name Freq PRN Reason Stop Dose Admin Acetaminophen 650 mg 04/29/17 17:53 Tylenol - PO Q6H PRN FEVER OR PAIN Amlodipine Besylate 10 mg 05/01/17 10:00 05/02/17 09:24 Norvasc - PO 10 mg DAILY JULIETA Administration Aspirin 81 mg 05/01/17 10:00 05/02/17 09:24 Ecotrin - PO 81 mg DAILY JULIETA Administration Clonidine HCl 0.3 mg 04/29/17 18:15 04/29/17 18:32 Catapres Tts Patch - TD 0.3 mg We@10 JULIETA Administration Sodium Chloride 1,000 mls @ 100 mls/hr 05/01/17 11:15 05/01/17 11:15 Normal Saline - IV Not Given ASDIR JULIETA Losartan Potassium 100 mg 04/29/17 18:00 05/02/17 09:24 Cozaar - PO 100 mg DAILY JULIETA Administration Triamterene/HCTZ 1 cap 05/01/17 15:00 05/02/17 09:33 Dyazide 25/37.5mg PO 1 cap DAILY JULIETA Administration IMPRESSION 1. HTN 2. polycythemia- perhaps due to testosterone 3. hx of CVA 4. dyspnea 5. chest pain 6. chronic testonerone supplementation 7. HEATHER Plan - i recommended against testosterone injections given his htn especially since testosterone will increase his hematocrit and will likely increase his BP. He became very upset about this -would try an derrell inhibitor instead of an arb since acei may help with his erythrocytosis -will follow MV
--- NOTE | 2017-05-02 13:33 | PN ---
Progress Note, Physician Chief Complaint: Patient appears comfortable. He has no recurrent chest pain or SOB at rest. History of Present Illness: 66 year old rae with a PMHx of HTN, TIAs, polycythemia vera, and blood clots who presents to the emergency department 04/29/2017 with progressive shortness breath and chest discomfort. Patient has been experiencing exertional shortness of breath and chest discomfort for 3 day. His exercise tolerance decreased markedly. He had one episode of PND last night. But he has no shortness of breath or chest pain at rest. He denies palpitation, dizziness, syncope, near syncope, edema or orthopnea. He states that he gets his blood drawn every two weeks but hasnt had his blood drawn for 2.5 weeks. He states that he feels better when he gets his blood drawn and he no longer feels tired. He also reports urinary frequency. His ECG 04/29/2017 showed sinus rhythm. LVH with inferolateral ischemia. Troponin is within normal range. Pro-BNP is mildly elevated. Persantine nuclear stress test 04/30/2017 revealed small fixed defect in the base to mid inferior wall. No stress induced ischemia. Gated study showed moderate LV systolic dysfunction. LVEF = 34%. Echo 04/30/2017 revealed preserved LV systolic function. - Current Medication List Current Medications: Active Medications Acetaminophen (Tylenol -) 650 mg PO Q6H PRN PRN Reason: FEVER OR PAIN Amlodipine Besylate (Norvasc -) 10 mg PO DAILY [facility] Last Admin: 05/02/17 09:24 Dose: 10 mg Aspirin (Ecotrin -) 81 mg PO DAILY [facility] Last Admin: 05/02/17 09:24 Dose: 81 mg Clonidine HCl (Catapres Tts Patch -) 0.3 mg TD We@10 [facility] Last Admin: 04/29/17 18:32 Dose: 0.3 mg Sodium Chloride (Normal Saline -) 1,000 mls @ 100 mls/hr IV ASDIR [facility] Last Admin: 05/01/17 11:15 Dose: Not Given Losartan Potassium (Cozaar -) 100 mg PO DAILY [facility] Last Admin: 05/02/17 09:24 Dose: 100 mg Triamterene/HCTZ (Dyazide 25/37.5mg) 1 cap PO DAILY [facility] Last Admin: 05/02/17 09:33 Dose: 1 cap - Objective Vital Signs: Vital Signs Temperature 98.1 F 05/02/17 00:58 Pulse Rate 58 L 05/02/17 00:58 Respiratory Rate 18 05/02/17 00:58 Blood Pressure 141/88 05/02/17 00:58 O2 Sat by Pulse Oximetry (%) 98 05/01/17 21:00 Constitutional: Yes: Well Nourished, No Distress Eyes: Yes: WNL HENT: Yes: Atraumatic, Normocephalic Neck: Yes: Supple, Trachea Midline Cardiovascular: Yes: Regular Rate and Rhythm, S1, S2 Respiratory: Yes: Regular, CTA Bilaterally Gastrointestinal: Yes: Normal Bowel Sounds, Soft, Abdomen, Obese ...Rectal Exam: Yes: Deferred Edema: No Peripheral Pulses WNL: Yes Labs: CBC, BMP 05/02/17 06:05 05/02/17 06:05 INR, PTT INR 1.01 (0.82-1.09) 04/29/17 08:15 Assessment/Plan 66 year old rae with a PMHx of HTN, TIAs, polycythemia vera, and blood clots who presents to the emergency department 04/29/2017 with progressive shortness breath and chest discomfort. ECG 04/29/2017 showed sinus rhythm. LVH with inferolateral ischemia. Troponin is within normal range. Pro-BNP is mildly elevated. Persantine nuclear stress test 04/30/2017 showed a small fixed defect in the inferior wall without stress induced ischemia. Moderate LV systolic function with LVEF 34% from gated study. Echo 05/01/17 demonstrated normal LV and RV systolic function with no significant valve disease. 1) Chest pain/CAD No chest pain at this time. Nuclear stress test demonstrated small basal inferior wall scar but no area of ischemia. Normal LV systolic function on echocardigoram Would treat for CAD with scar on stress test. Aspirin 81mg daily. Would start statin if no contraindication. Ideally would be on a beta maryjane but on tele HR often running in the 50s so would hold for now and add in the future if patient tolerates it. 2) SOB Appreciate pulmonary consult CT chest with no PE or congestion. Euvolemic on Exam today. Echocardiogram with normal LV systolic function and no significant valve disease. No further cardiac testing Needs BP control 3) HTN. BP control improved. Patient is on maxed doses of amlodipine, clonidine, and losartan. Will not tolerate bblocker at this time given bradycardia. Was started on triamterene/hctz 05/01/2017. BP control improved. Patient needs sleep study as outpt if never had one to evaluate for chana MRI abdomen in 2014 with no adrenal masses. CTA 2014 with patent renal arteries. January d/c tele. Out patient follow up
--- NOTE | 2017-05-02 13:57 | PN ---
Progress Note, Physician History of Present Illness: Pt states he feels better. Has no specific complaints. Denies shortness of breath, chest pain, fever, or chills - Current Medication List Current Medications: Active Medications Acetaminophen (Tylenol -) 650 mg PO Q6H PRN PRN Reason: FEVER OR PAIN Amlodipine Besylate (Norvasc -) 10 mg PO DAILY [facility] Last Admin: 05/02/17 09:24 Dose: 10 mg Aspirin (Ecotrin -) 81 mg PO DAILY [facility] Last Admin: 05/02/17 09:24 Dose: 81 mg Clonidine HCl (Catapres Tts Patch -) 0.3 mg TD We@10 [facility] Last Admin: 04/29/17 18:32 Dose: 0.3 mg Sodium Chloride (Normal Saline -) 1,000 mls @ 100 mls/hr IV ASDIR [facility] Last Admin: 05/01/17 11:15 Dose: Not Given Losartan Potassium (Cozaar -) 100 mg PO DAILY [facility] Last Admin: 05/02/17 09:24 Dose: 100 mg Triamterene/HCTZ (Dyazide 25/37.5mg) 1 cap PO DAILY [facility] Last Admin: 05/02/17 09:33 Dose: 1 cap - Objective Vital Signs: Vital Signs Temperature 98.1 F 05/02/17 00:58 Pulse Rate 58 L 05/02/17 00:58 Respiratory Rate 18 05/02/17 00:58 Blood Pressure 141/88 05/02/17 00:58 O2 Sat by Pulse Oximetry (%) 98 05/01/17 21:00 Constitutional: Yes: No Distress HENT: Yes: WNL Neck: Yes: WNL, Supple Cardiovascular: Yes: WNL, Regular Rate and Rhythm Respiratory: Yes: CTA Bilaterally Gastrointestinal: Yes: Normal Bowel Sounds, Soft Genitourinary: Yes: WNL Musculoskeletal: Yes: WNL Integumentary: Yes: WNL Neurological: Yes: WNL, Alert Psychiatric: Yes: Alert Labs: CBC, BMP 05/02/17 06:05 05/02/17 06:05 INR, PTT INR 1.01 (0.82-1.09) 04/29/17 08:15 Problem List - Problems (1) Obstructive sleep apnea Code(s): G47.33 - OBSTRUCTIVE SLEEP APNEA (ADULT) (PEDIATRIC) (2) Polycythemia Code(s): D75.1 - SECONDARY POLYCYTHEMIA (3) Leukocytosis Code(s): D72.829 - ELEVATED WHITE BLOOD CELL COUNT, UNSPECIFIED Assessment/Plan - stable off antibiotics, continue monitor - wbc normal
--- NOTE | 2017-05-02 15:05 | PN ---
Progress Note (short form) - Note Progress Note: PULMONARY Denies shortness of breath or chest pain. Last Vital Signs Temp Pulse Resp BP Pulse Ox 98.1 F 72 18 123/74 97 05/02/17 14:15 05/02/17 14:15 05/02/17 14:15 05/02/17 14:15 05/02/17 10:00 Gen: NAD at rest Heart: RRR Lung: decreased breath sounds at the bases Abd: soft, nontender Ext: no edema CBC, BMP 05/02/17 06:05 05/02/17 06:05 Active Medications Acetaminophen (Tylenol -) 650 mg PO Q6H PRN PRN Reason: FEVER OR PAIN Amlodipine Besylate (Norvasc -) 10 mg PO DAILY [facility] Last Admin: 05/02/17 09:24 Dose: 10 mg Aspirin (Ecotrin -) 81 mg PO DAILY [facility] Last Admin: 05/02/17 09:24 Dose: 81 mg Clonidine HCl (Catapres Tts Patch -) 0.3 mg TD We@10 [facility] Last Admin: 04/29/17 18:32 Dose: 0.3 mg Sodium Chloride (Normal Saline -) 1,000 mls @ 100 mls/hr IV ASDIR [facility] Last Admin: 05/01/17 11:15 Dose: Not Given Losartan Potassium (Cozaar -) 100 mg PO DAILY [facility] Last Admin: 05/02/17 09:24 Dose: 100 mg Triamterene/HCTZ (Dyazide 25/37.5mg) 1 cap PO DAILY [facility] Last Admin: 05/02/17 09:33 Dose: 1 cap A/P Chest Pain/Shortness of Breath ?Hypertensive Urgency resolved Likely Obstructive Sleep Apnea Polycythemia Vera - BP control - phlebotomy per hematology - will need outpt PSG - can be discharged home from pulmonary standpoint Problem List - Problems (1) Chest pain Code(s): R07.9 - CHEST PAIN, UNSPECIFIED Qualifiers: Chest pain type: other chest pain Qualified Code(s): R07.89 - Other chest pain; R07.8 - Other chest pain (2) Hypertension Code(s): I10 - ESSENTIAL (PRIMARY) HYPERTENSION Qualifiers: Hypertension type: essential hypertension (3) Polycythemia Code(s): D75.1 - SECONDARY POLYCYTHEMIA (4) Obstructive sleep apnea Code(s): G47.33 - OBSTRUCTIVE SLEEP APNEA (ADULT) (PEDIATRIC)
--- NOTE | 2017-05-02 17:37 | PN ---
Progress Note, Physician Chief Complaint: Patient came in for shortness of breath and chest discomfort History of Present Illness: Patient comfortably sitting in bed, NAD, denies chest pain, denies SOB. Patient reported he wants to go home. - Current Medication List Current Medications: Active Medications Acetaminophen (Tylenol -) 650 mg PO Q6H PRN PRN Reason: FEVER OR PAIN Amlodipine Besylate (Norvasc -) 10 mg PO DAILY [facility] Last Admin: 05/02/17 09:24 Dose: 10 mg Aspirin (Ecotrin -) 81 mg PO DAILY [facility] Last Admin: 05/02/17 09:24 Dose: 81 mg Clonidine HCl (Catapres Tts Patch -) 0.3 mg TD We@10 [facility] Last Admin: 04/29/17 18:32 Dose: 0.3 mg Sodium Chloride (Normal Saline -) 1,000 mls @ 100 mls/hr IV ASDIR [facility] Last Admin: 05/01/17 11:15 Dose: Not Given Losartan Potassium (Cozaar -) 100 mg PO DAILY [facility] Last Admin: 05/02/17 09:24 Dose: 100 mg Triamterene/HCTZ (Dyazide 25/37.5mg) 1 cap PO DAILY [facility] Last Admin: 05/02/17 09:33 Dose: 1 cap - Objective Vital Signs: Vital Signs Temperature 98.1 F 05/02/17 14:15 Pulse Rate 72 05/02/17 14:15 Respiratory Rate 18 05/02/17 14:15 Blood Pressure 123/74 05/02/17 14:15 O2 Sat by Pulse Oximetry (%) 97 05/02/17 10:00 Constitutional: Yes: Well Nourished, No Distress Eyes: Yes: Conjunctiva Clear, EOM Intact HENT: Yes: Normocephalic Neck: Yes: Supple Cardiovascular: Yes: Regular Rate and Rhythm, S1, S2 Respiratory: Yes: Regular, CTA Bilaterally Gastrointestinal: Yes: Normal Bowel Sounds, Soft, Abdomen, Obese Edema: No Peripheral Pulses WNL: Yes Integumentary: Yes: Other (facial phletora) Labs: CBC, BMP 05/02/17 06:05 05/02/17 06:05 INR, PTT INR 1.01 (0.82-1.09) 04/29/17 08:15 Problem List - Problems (1) Chest pain Code(s): R07.9 - CHEST PAIN, UNSPECIFIED Qualifiers: Chest pain type: other chest pain Qualified Code(s): R07.89 - Other chest pain; R07.8 - Other chest pain (2) Leukocytosis Code(s): D72.829 - ELEVATED WHITE BLOOD CELL COUNT, UNSPECIFIED (3) Hypertension Code(s): I10 - ESSENTIAL (PRIMARY) HYPERTENSION Qualifiers: Hypertension type: essential hypertension (4) Polycythemia Code(s): D75.1 - SECONDARY POLYCYTHEMIA (5) Coronary artery disease Code(s): I25.10 - ATHSCL HEART DISEASE OF [place] CORONARY ARTERY W/O ANG PCTRS Assessment/Plan (1) Chest pain Code(s): R07.9 - CHEST PAIN, UNSPECIFIED Qualifiers: Chest pain type: other chest pain Qualified Code(s): R07.89 - Other chest pain; R07.8 - Other chest pain -no chest pain at this time. -cardiology consult appreciated (2) Hypertension Code(s): I10 - ESSENTIAL (PRIMARY) HYPERTENSION Qualifiers: Hypertension type: essential hypertension -Patient is on maxed doses of amlodipine, clonidine, and losartan. Will not tolerate bblocker at this time given bradycardia. -Was started on triamterene/hctz 05/01/2017. BP control improved. -Cardiology consult appreciated -Monitor BP (3) Polycythemia Code(s): D75.1 - SECONDARY POLYCYTHEMIA -phlebotomy per hematology (4) Obstructive sleep apnea Code(s): G47.33 - OBSTRUCTIVE SLEEP APNEA (ADULT) (PEDIATRIC) (5) Coronary artery disease Code(s): I25.10 - ATHSCL HEART DISEASE OF [place] CORONARY ARTERY W/O ANG PCTRS -Started of Aspirin daily. -Cardiology consult appreciated -As per cardio, may d/c tele, out patient ff up -As per Pulmo, can be discharged home -For possible discharge tomorrow, awaiting clearance for NEPHRO.
--- NOTE | 2017-05-02 18:43 | EKG ---
Test Reason : Blood Pressure : / mmHG Vent. Rate : 070 BPM Atrial Rate : 070 BPM P-R Int : 178 ms QRS Dur : 086 ms QT Int : 386 ms P-R-T Axes : 069 060 239 degrees QTc Int : 416 ms NORMAL SINUS RHYTHM MODERATE VOLTAGE CRITERIA FOR LVH, MAY BE NORMAL VARIANT T WAVE ABNORMALITY, CONSIDER INFEROLATERAL ISCHEMIA ABNORMAL ECG WHEN COMPARED WITH ECG OF 28-DEC-2015 10:33, INVERTED T WAVES HAVE REPLACED NONSPECIFIC T WAVE ABNORMALITY IN INFERIOR LEADS Confirmed by VANCE NUNEZ MD ([id number]) on 05/02/2017 6:42:40 PM Referred By: Confirmed By:VANCE NUNEZ MD
--- NOTE | 2017-05-02 21:53 | PN ---
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 h/o TIA? -In the past ,P.vera w/u including a Bone marrow biopsy was done ( JAK2 exon 12/ 13 , Noble R were negative) and marrow did not show a primary P vera. This likely points towards a secondary cause, like testosterone supplements ( pt mentioned he receives them) or/and HEATHER. Sleep study to be done as an OP. -leucocytosis likely reactive/obesity -pt with reported h/o TIA , will need aspirin 81mg. ??h/o blood clots -cardiology/pulm elaine noted patient very keen on getting testosterone---discussed risks/benefits with him. will discuss with primary/urology teams
[2017-05-03 08:06] LABS: BASOPHIL 0.3 % (0-2.0); EOSINOPHIL 1.6 % (0-4.5); MCH 30.5 pg (25.7-33.7); MCHC 33.2 g/dl (32.0-35.9); MEAN CELL VOLUME 91.9 fl (80-96); MEAN PLT VOLUME 8.3 fl (7.5-11.1); NEUTROPHILS 81.1 % (42.8-82.8); PLATELET COUNT 386 K/MM3 (134-434); RDW 14.6 % (11.9-15.9); WHITE BLOOD COUNT 12.4 K/mm3 (4.0-10.0)
[2017-05-03 08:39] LABS: ALBUMIN 3.7 g/dl (3.4-5.0); ALK PHOS 72 U/L (45-117); ANION GAP 8 (8-16); BILIRUBIN,TOTAL 0.8 mg/dL (0.2-1.0); CO2 30 mmol/L (21-32); CREATININE 1.4 mg/dL (0.7-1.3); GLUCOSE,RANDOM 101 mg/dL (74-106); SGOT/AST 29 U/L (15-37); SGPT/ALT 52 U/L (12-78); TOT PROT 7.3 g/dl (6.4-8.2)
[2017-05-03] MEDS: ASPIRIN COATED 81 MG TABLET.EC PO SCH (09:09)
[2017-05-03] MEDS: LOSARTAN POTASSIUM 50 MG TABLET (FP) PO SCH (09:09)
[2017-05-03] MEDS: TRIAMTERENE AND HCTZ - 37.5 MG/25 MG CAPSULE PO SCH (09:09)
[2017-05-03] MEDS: amLODIPine BESYLATE 10 MG TABLET (FP) PO SCH (09:09)
[2017-05-03 10:09] VITALS: BP 149/79; PULSE 70; TEMP 98.5
--- NOTE | 2017-05-03 12:13 | PN ---
Progress Note (short form) - Note Progress Note: RENAL Pt is awake and alert denies complaints today Last Vital Signs Temp Pulse Resp BP Pulse Ox 98.5 F 70 18 149/79 98 05/03/17 10:00 05/03/17 10:00 05/03/17 10:00 05/03/17 10:00 05/03/17 10:00 facial plethora -jvd lungs clear cvs s1s2 rr abd soft ext no edema neuro a+ox3 CBC, BMP 05/03/17 05:42 05/03/17 05:42 Current Medications Generic Name Dose Route Start Last Admin Trade Name Freq PRN Reason Stop Dose Admin Acetaminophen 650 mg 04/29/17 17:53 Tylenol - PO Q6H PRN FEVER OR PAIN Amlodipine Besylate 10 mg 05/01/17 10:00 05/03/17 09:09 Norvasc - PO 10 mg DAILY JULIETA Administration Aspirin 81 mg 05/01/17 10:00 05/03/17 09:09 Ecotrin - PO 81 mg DAILY JULIETA Administration Clonidine HCl 0.3 mg 04/29/17 18:15 04/29/17 18:32 Catapres Tts Patch - TD 0.3 mg We@10 JULIETA Administration Sodium Chloride 1,000 mls @ 100 mls/hr 05/01/17 11:15 05/01/17 11:15 Normal Saline - IV Not Given ASDIR JULIETA Losartan Potassium 100 mg 04/29/17 18:00 05/03/17 09:09 Cozaar - PO 100 mg DAILY JULIETA Administration Triamterene/HCTZ 1 cap 05/01/17 15:00 05/03/17 09:09 Dyazide 25/37.5mg PO 1 cap DAILY JULIETA Administration IMPRESSION 1. HTN 2. polycythemia- perhaps due to testosterone 3. hx of CVA 4. dyspnea 5. chest pain 6. chronic testonerone supplementation 7. HEATHER Plan - i recommended against testosterone injections given his htn especially since testosterone will increase his hematocrit and will likely increase his BP. He became very upset about this -would try an derrell inhibitor instead of an arb since acei may help with his erythrocytosis -if discharged will need to repeat his labs soon. If creat increasing to dc diuretics MV
--- NOTE | 2017-05-03 12:34 | DS ---
Physical Examination Vital Signs: Vital Signs Temperature 98.5 F 05/03/17 10:00 Pulse Rate 70 05/03/17 10:00 Respiratory Rate 18 05/03/17 10:00 Blood Pressure 149/79 05/03/17 10:00 O2 Sat by Pulse Oximetry (%) 98 05/03/17 10:00 Constitutional: Yes: No Distress, Calm Eyes: Yes: Conjunctiva Clear Neck: Yes: Supple Cardiovascular: Yes: Regular Rate and Rhythm Respiratory: Yes: Regular, CTA Bilaterally Gastrointestinal: Yes: Normal Bowel Sounds, Soft, Abdomen, Obese Musculoskeletal: Yes: WNL Extremities: Yes: WNL Edema: No Peripheral Pulses WNL: Yes Neurological: Yes: Alert, Oriented ...Motor Strength: WNL Labs: CBC, BMP 05/03/17 05:42 05/03/17 05:42 Discharge Summary Reason For Visit: DIFFICULTY BREATHING Current Active Problems Chest pain (Acute) Coronary artery disease (Acute) Leukocytosis (Acute) Obstructive sleep apnea (Acute) Condition: Stable - Instructions Referrals: Tulio Shaikh [Primary Care Provider] - Alireza Howard MD [Staff Physician] - Disposition: HOME - Home Medications Comprehensive Discharge Medication List: Ambulatory Orders Losartan Potassium [Cozaar -] 100 mg PO DAILY #14 tablet 03/23/15 Clonidine Patch [Catapres Tts Patch -] 0.3 mg TD WEEKLY 11/22/15 Amlodipine Besylate [Norvasc -] 5 mg PO DAILY 04/29/17 [place]-3 Fatty Acids [[place]-3] 1,000 mg PO DAILY 04/29/17 Aspirin Coated [Ecotrin -] 81 mg PO DAILY #30 tablet 05/03/17 Hctz 25Mg/Triamterene [Dyazide 25/37.5 -] 1 cap PO DAILY #20 tablet 05/03/17 Losartan Potassium [Cozaar -] 100 mg PO DAILY #30 tablet 05/03/17
== END 2017-05-03 13:01 | disposition home or self-care (01) | DRG 303 ==
LOC: JER 07:27 → JERBED 15:32 → OBSVTOIN 17:51 → J4W 20:15
PROVIDERS: ADMIT Family Medicine; ATTEND Family Medicine
DX: I25.10 Atherosclerotic heart disease of native coronary artery without angina pectoris (principal); R07.9 Chest pain, unspecified; I16.0 Hypertensive urgency; I10 Essential (primary) hypertension; G47.33 Obstructive sleep apnea (adult) (pediatric); D45 Polycythemia vera; Z86.711 Personal history of pulmonary embolism; Z86.73 Personal history of transient ischemic attack (TIA), and cerebral infarction without residual deficits; D72.829 Elevated white blood cell count, unspecified
CPT/HCPCS: 36415; 71010-TC; 71275-TC; 76775-TC; 76856-TC; 78452-TC; 80053; 81003; 81015; 82436; 82553; 82570; 82668; 83735; 83880; 84133; 84300; 84402; 84484; 85025; 85027; 85610; 85730; 86850; 86900; 86901; 87205; 93005; 93010; 93017; 93306-TC; 97116-GP; 97161-GP; 99285-25; A9502; G0378

== ENCOUNTER 2017-10-19 11:19 | Emergency (ER) | payer MEDICARE, OTHER ==
[2017-10-19 11:25] VITALS: TEMP 98.4; BMI 26.2
--- NOTE | 2017-10-19 12:15 | PDOC ---
Attending Attestation - Resident Resident Name: Jessica Brownony - ED Attending Attestation I have performed the following: I have examined & evaluated the patient, The case was reviewed & discussed with the resident, I agree w/resident's findings & plan, Exceptions are as noted - HPI HPI: 10/19/17 12:12 67y M hx of polycythemia, htn, hx some kind blood clots due to his polycythemia (not on ac currently, presents with complaint of worsening SOB / DURON, and feeling generally weak, pt does endorse some sharp left sided chest pain lasting for <1min at 3am and 6am. No fever/chills, cough, abd pain, back pain, diarrhea, melena, bpr. No chest pain currently. No known cardiac history on exam the pt is well appearing in n distress cardiac exam wnl lungs cta no LE edema, neg homans sign ddx, pe, pna, acs, anemia 10/19/17 15:11 pts labs reviewed cxr negative pts dimer noted e;evated at 600, and plan was for CTA to r/o PE ohowever pt declines. states he feels improved, he walked around the ED and was not dyspenic or sob. I recommended the CTA, to ro PE but he declines. state he will fu with his PMD retunr precations were discussed I discussed the physical exam findings, ancillary test results and final diagnoses with the patient. I answered all of the patient's questions. The patient was satisfied with the care received and felt comfortable with the discharge plan and treatment plan. The patient will call their primary care physician within 24 hours to arrange follow-up and will return to the Emergency Department with any new, persistent or worsening symptoms. - Physicial Exam PE: 10/20/17 08:18 see above - Medical Decision Making 10/20/17 08:18 see above Heart Score/ECG Review - ECG Impressions Comment:: 10/19/17 13:16 Twelve-lead EKG was performed and reviewed by me. There is normal sinus rhythm with a normal rate. rate of 77 LVH with repolarization abnormality
[2017-10-19 12:49] LABS: BASO % 0.7 % (0-2.0); EOS % 1.7 % (0-4.5); HEMATOCRIT 43.2 % (35.4-49); HEMOGLOBIN 14.4 GM/dL (11.7-16.9); LYMPH % 15.5 % (8-40); MCH 29.9 pg (25.7-33.7); MCHC 33.4 g/dl (32.0-35.9); MEAN CELL VOLUME 89.6 fl (80-96); MEAN PLT VOLUME 7.5 fl (7.5-11.1); MONO % 9.1 % (3.8-10.2); PLATELET COUNT 277 K/MM3 (134-434); RBC 4.83 M/mm3 (4.00-5.60)
[2017-10-19 13:09] LABS: INR 1.02 (0.82-1.09); PROTHROMBIN TIME (PATIENT) 11.5 SEC (9.98-11.88)
[2017-10-19 13:12] LABS: ACTIVATED PTT 29.4 SECONDS (26.9-34.4)
[2017-10-19 13:20] LABS: ALBUMIN 3.4 g/dl (3.4-5.0); ANION GAP 8 (8-16); BILIRUBIN,TOTAL 0.3 mg/dL (0.2-1.0); BLOOD UREA NITROGEN 33 mg/dL (7-18); CALCIUM 8.4 mg/dL (8.5-10.1); CHLORIDE 107 mmol/L (98-107); CO2 27 mmol/L (21-32); CREATININE 1.3 mg/dL (0.7-1.3); GLUCOSE,RANDOM 88 mg/dL (74-106); POTASSIUM 3.9 mmol/L (3.5-5.1); SGOT/AST 18 U/L (15-37); SGPT/ALT 34 U/L (12-78); SODIUM 142 mmol/L (136-145); TOT PROT 6.2 g/dl (6.4-8.2)
[2017-10-19 13:23] LABS: ALK PHOS 82 U/L (45-117); N-TERMINAL BNP 261.99 pg/ml (5-125)
--- NOTE | 2017-10-19 13:55 | PDOC ---
History of Present Illness - General Chief Complaint: Shortness of Breath Stated Complaint: SOB Time Seen by Provider: 10/19/17 11:42 History Source: Patient Exam Limitations: No Limitations - History of Present Illness Initial Comments: 10/19/17 13:50 The patient is a 67M with a PMH of polycythemia, HTN and mini-strokes, and blood clots (based on chart review) who presents to the ER with multiple complaints. The patient was a rapid response in the lobby 2/ to CP and diaphoresis. The patient states that he has had L sided chest pain which does not radiate for 2 days with associated SOB while laying down and on exertion. He also states that he feels diffuse weakness. He says he follows with Dr. Stephanie Mir (urology) for low testosterone and he thinks that may be the cause. He currently denies SOB, fever, chills, cough, CP, nausea, vomiting, and focal weakness. Past History 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 History Allergies/Adverse Reactions: Allergies Allergy/AdvReac Type Severity Reaction Status Date / Time No Known Drug Allergies Allergy Verified 10/19/17 11:22 Home Medications: Ambulatory Orders Losartan Potassium [Cozaar -] 100 mg PO DAILY #14 tablet 03/23/15 [place]-3 Fatty Acids [[place]-3] 1,000 mg PO DAILY 04/29/17 Acetaminophen [Tylenol .Regular Strength -] 650 mg PO Q6H PRN #0 tablet Amlodipine Besylate [Norvasc -] 10 mg PO DAILY #30 tablet 05/03/17 Aspirin Coated [Ecotrin -] 81 mg PO DAILY #30 tablet 05/03/17 Clonidine Patch [Catapres Tts Patch -] 0.3 mg TD WEEKLY #1 box 05/03/17 Hctz 25Mg/Triamterene [Dyazide 25/37.5 -] 1 cap PO DAILY #20 tablet 05/03/17 CVA: Yes (TIA-2007, SHORT TERM PROBLEMS) COPD: No HTN: Yes Other medical history: POLYCYTHEMIA VERA - Surgical History Abdominal Surgery: Yes (HERNIA REPAIR) Orthopedic Surgery: Yes (SHOULDER SX) - Suicide/Smoking/Psychosocial Hx Smoking History: Never smoked Have you smoked in the past 12 months: No Information on smoking cessation initiated: No Hx Alcohol Use: No Drug/Substance Use Hx: No Substance Use Type: None Hx Substance Use Treatment: No Review of Systems - Review of Systems Comments:: 10/19/17 14:00 GENERAL/CONSTITUTIONAL: Positive for weakness, generalized. No fever or chills. HEAD, EYES, EARS, NOSE AND THROAT: No change in vision. No ear pain or discharge. No sore throat. CARDIOVASCULAR: Positive for resolved CP. No palpitations or lightheadedness. RESPIRATORY: Positive for SOB. No cough, wheezing, or hemoptysis. GASTROINTESTINAL: No nausea, vomiting, diarrhea, constipation, or abdominal pain. GENITOURINARY: No dysuria, frequency, hematuria, or change in urination. MUSCULOSKELETAL: No joint or muscle swelling or pain. No neck or back pain. SKIN: No rash or lesions. NEUROLOGIC: No headache, numbness, tingling, weakness, loss of consciousness, or change in strength/sensation. ENDOCRINE: No increased thirst. No abnormal weight change. HEMATOLOGIC/LYMPHATIC: No anemia, easy bleeding, or history of blood clots. ALLERGIC/IMMUNOLOGIC: No hives or skin allergy. *Physical Exam - Vital Signs Last Vital Signs Temp Pulse Resp BP Pulse Ox 98.4 F 79 18 124/85 100 10/19/17 11:23 10/19/17 11:23 10/19/17 11:23 10/19/17 11:23 10/19/17 11:23 - Physical Exam Comments: 10/19/17 14:01 GENERAL: Well developed, well nourished. Awake and alert. No acute distress. HEENT: Normocephalic, atraumatic. Hearing grossly normal. Moist mucous membranes. PERRLA, EOMI. No conjunctival pallor. Sclera are non-icteric. NECK: Supple. Full ROM. No JVD. CARDIOVASCULAR: Regular rate and rhythm. No murmurs, rubs, or gallops. PULMONARY: No evidence of respiratory distress. Lungs clear to auscultation bilaterally. No wheezing, rales or rhonchi. ABDOMINAL: Soft. Non-tender. Non-distended. No rebound or guarding. GENITOURINARY: No CVA tenderness bilaterally. MUSCULOSKELETAL: Normal range of motion at all joints. No bony deformities or tenderness. EXTREMITIES: No cyanosis. No clubbing. No edema. No calf tenderness. SKIN: Warm and dry. Normal capillary refill. No rashes. No jaundice. NEUROLOGICAL: Alert, awake, appropriate. Cranial nerves 2-12 intact. Normal speech. Gait is normal without ataxia. PSYCHIATRIC: Cooperative. Good eye contact. Appropriate mood and affect. Heart Score/ECG Review #1 ECG reviewed & interpreted by me at: 12:16 General ECG Interpretation: Sinus Rhythm, Normal Rate, Normal Intervals, No acute ischemic changes Compared to previous ECG there are: Changes noted (Changed morphology of ST segment and T wave) 10/19/17 14:02 NSR Rate 77 [place] 184 QRS 102 QTc 450 T wave inversions in lateral leads ED Treatment Course - LABORATORY CBC & Chemistry Diagram: 10/19/17 12:45 10/19/17 12:45 - ADDITIONAL ORDERS Additional order review: Laboratory Results 10/19/17 10/19/17 12:45 12:45 PT with INR 11.50 INR 1.02 PTT (Actin FS) 29.4 Sodium 142 Potassium 3.9 Chloride 107 Carbon Dioxide 27 Anion Gap 8 BUN 33 H D Creatinine 1.3 Creat Clearance w eGFR 55.06 Random Glucose 88 Calcium 8.4 L Total Bilirubin 0.3 D AST 18 D ALT 34 D Alkaline Phosphatase 82 Creatine Kinase 165 Creatine Kinase Index 1.6 CK-MB (CK-2) 2.679 Troponin I < 0.02 D B-Natriuretic Peptide 261.99 H Total Protein 6.2 L Albumin 3.4 10/19/17 12:45 RBC 4.83 MCV 89.6 MCHC 33.4 RDW 15.0 MPV 7.5 Neutrophils % 73.0 Lymphocytes % 15.5 D Monocytes % 9.1 Eosinophils % 1.7 Basophils % 0.7 - RADIOLOGY Radiology Studies Ordered: Category Date Time Status CHEST PA & LAT [RAD] Stat Radiology 10/19/17 12:32 Completed Medical Decision Making - Medical Decision Making 10/19/17 14:02 The patient is a 67M who presents with generalized weakness and shortness of breath on exertion and orthopnea. Labs negative. Pt does not have increased H/ H. EKG WNL. Trop negative. I have concern for PE vs CHF. BNP WNL so CHF is less likely. Pending d-dimer. 10/19/17 15:01 D dimer slightly elevated to 600. However, the patient is clinically improved. Normoxic and no longer dyspneic on exertion (I had the patient walk back and forth through the ER with no problems) . Pt will call PCP (Deonna) for follow up appointment. *DC/Admit/Observation/Transfer Diagnosis at time of Disposition: Atypical chest pain - Discharge Dispostion Disposition: HOME Condition at time of disposition: Stable Admit: No - Referrals Referrals: Akash Ying MD [Primary Care Provider] - - Patient Instructions Printed Discharge Instructions: DI for Atypical Chest Pain Additional Instructions: Please return to the ER if symptoms persist, worsen, or new symptoms arise. Please follow up with Dr. Ying in 2-3 days. Please return to the ER if you have any signs or symptoms of chest pain, shortness of breath, uncontrollable fever, chills, nausea, vomiting, numbness, tingling, or weakness in any part of your body, changes in vision, or slurred speech. - Post Discharge Activity
[2017-10-19 15:14] VITALS: BP 120/70; PULSE 68
--- NOTE | 2017-10-19 17:37 | EKG ---
Test Reason : Blood Pressure : / mmHG Vent. Rate : 077 BPM Atrial Rate : 077 BPM P-R Int : 184 ms QRS Dur : 102 ms QT Int : 398 ms P-R-T Axes : 067 050 260 degrees QTc Int : 450 ms NORMAL SINUS RHYTHM LEFT VENTRICULAR HYPERTROPHY WITH REPOLARIZATION ABNORMALITY ABNORMAL ECG WHEN COMPARED WITH ECG OF 29-APR-2017 07:40, NO SIGNIFICANT CHANGE WAS FOUND Confirmed by DARLYN BILL MD ([id number]) on 10/19/2017 5:37:11 PM Referred By: Confirmed By:DARLYN BILL MD
== END 2017-10-19 15:14 | disposition home or self-care (01) ==
LOC: JER 11:19
DX: R07.89 Other chest pain (principal); I10 Essential (primary) hypertension; D45 Polycythemia vera; Z86.73 Personal history of transient ischemic attack (TIA), and cerebral infarction without residual deficits; Z86.718 Personal history of other venous thrombosis and embolism
CPT/HCPCS: 36415; 71046-TC-FY; 80053; 82550; 82553; 83880; 84484; 85025; 85379; 85610; 85730; 93005; 93010; 99282-25

== ENCOUNTER 2018-05-09 00:17 | Emergency (ER) | payer OTHER ==
--- NOTE | 2018-05-09 00:22 | PDOC ---
History of Present Illness - General Stated Complaint: BACK PAIN Time Seen by Provider: 05/09/18 00:22 History Source: Patient, Family Exam Limitations: Clinical Condition - History of Present Illness Initial Comments: 05/09/18 01:06 68M with history of HTN HLS and polycythemia presents to the ER via ems for acute onset of left sided back pain. The patient states that this past thursday he went to the gym in order to adopt a healthier lifestyle and did a bunch of reps and sets of pull ups and squats. He squatted between 200-220lbs and on his last set he states he felt a pop of some sort in his lower back. 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 He denies any trauma to the area. He denies nausea vomiting fever chills chest pain and shortness of breath. He states he took some old vicodin for the pain which helped a little per patient. He has been unable to get up and he is very uncomfortable. Past History - Travel Traveled outside of the country in the last 30 days: No Close contact w/someone who was outside of country & ill: No 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 History Allergies/Adverse Reactions: Allergies Allergy/AdvReac Type Severity Reaction Status Date / Time No Known Drug Allergies Allergy Verified 05/09/18 00:32 Home Medications: Ambulatory Orders Losartan Potassium [Cozaar -] 100 mg PO DAILY #14 tablet 03/23/15 [place]-3 Fatty Acids [[place]-3] 1,000 mg PO DAILY 04/29/17 Acetaminophen [Tylenol .Regular Strength -] 650 mg PO Q6H PRN #0 tablet Amlodipine Besylate [Norvasc -] 10 mg PO DAILY #30 tablet 05/03/17 Aspirin Coated [Ecotrin -] 81 mg PO DAILY #30 tablet 05/03/17 Clonidine Patch [Catapres Tts Patch -] 0.3 mg TD WEEKLY #1 box 05/03/17 Hctz 25Mg/Triamterene [Dyazide 25/37.5 -] 1 cap PO DAILY #20 tablet 05/03/17 Ibuprofen [Motrin -] 600 mg PO TID #30 tablet 05/09/18 Methocarbamol [Robaxin -] 500 mg PO TID #30 tablet 05/09/18 CVA: Yes (TIA-2007, SHORT TERM PROBLEMS) COPD: No HTN: Yes Other medical history: polycythemia - Surgical History Abdominal Surgery: Yes (HERNIA REPAIR) Orthopedic Surgery: Yes (SHOULDER SX) - Suicide/Smoking/Psychosocial Hx Smoking History: Never smoked Have you smoked in the past 12 months: No Hx Alcohol Use: No Drug/Substance Use Hx: No Substance Use Type: None Hx Substance Use Treatment: No Review of Systems - Review of Systems Able to Perform ROS?: Yes Is the patient limited Scottish proficient: No Constitutional: No: Symptoms Reported, See HPI, Chills, Diaphoresis, Fever, Loss of Appetite, Malaise, Night Sweats, Weakness, Weight Stable, Unintentional Wgt. Loss, Unexplained wgt Loss, Other HEENTM: No: Symptoms Reported, See HPI, Eye Pain, Blurred Vision, Tearing, Recent change in vision, Double Vision, Cataracts, Ear Pain, Ocular Prothesis, Ear Discharge, Nose Pain, Nose Congestion, Tinnitus, Nose Bleeding, Hearing Loss , Throat Pain, Throat Swelling, Mouth Pain, Dental Problems, Difficulty Swallowing, Mouth Swelling, Other Respiratory: No: Symptoms reported, See HPI, Cough, Orthopnea, Shortness of Breath, SOB with Exertion, SOB at Rest, Stridor, Wheezing, Productive cough, Hemoptysis, Other Cardiac (ROS): No: Symptoms Reported, See HPI, Chest Pain, Edema, Irregular Heart Rate, Lightheadedness, Palpitations, Syncope, Chest Tightness, Other ABD/GI: No: Symptoms Reported, See HPI, Abdominal Distended, Abd. Pain w/ defecation, Blood Streaked Bowels, Constipated, Diarrhea, Difficulty Swallowing , Nausea, Poor Appetite, Poor Fluid Intake, Rectal Bleeding, Vomiting, Indigestion, Abdominal cramping, Tarry Stools, Other : No: Symptoms Reported, See HPI, Burning, Dysuria, Discharge, Frequency, Flank Pain, Hematuria, Incontinence, Pain, Urgency, Testicular Mass, Testicular Swelling, Lesions, Testicular Pain, Other Musculoskeletal: Yes: Back Pain Integumentary: No: Symptoms Reported, See HPI, Bruising, Change in Color, Change in Hair/Nails, Dryness, Erythema, Flushing, Lesions, Lumps, Pallor, Pruritus, Rash, Sweating, Other Neurological: No: Symptoms reported, See HPI, Headache, Numbness, Paresthesia, Pre-Existing Deficit, Seizure, Tingling, Tremors, Weakness, Unsteady Gait, Ataxia, Dizziness, Other Psychiatric: No: Anxiety, Depression, Frequent Crying, Stressors, Sleep Pattern Change, Emotional Problems, Mood Swings, Change in Appetite, Other Endocrine: No: Symptoms Reported, See HPI, Excessive Sweating, Flushing, Intolerance to Cold, Intolerance to Heat, Increased Hunger, Increased Thirst, Increased Urine, Unexplained Weight Gain, Unexplained Weight Loss, Change in Weight, Other Hematologic/Lymphatic: No: Symptoms Reported, See HPI, Anemia, Blood Clots, Easy Bleeding, Easy Bruising, Bleeding Diathesis, Lymph Node Abnormalities, Swollen Glands, Other *Physical Exam - Physical Exam General Appearance: Yes: Nourished, Appropriately Dressed, Moderate Distress HEENT: positive: EOMI, MAYRA, Normal ENT Inspection, Normal Voice, Symmetrical Neck: positive: Trachea midline, Supple Respiratory/Chest: positive: Lungs Clear, Normal Breath Sounds. negative: Respiratory Distress Cardiovascular: positive: Regular Rhythm, Regular Rate, S1, S2 Gastrointestinal/Abdominal: positive: Soft. negative: Tender Musculoskeletal: positive: Other (no vertebral step-offs. left groin tenderness. negative straight leg raise). 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 Could be musculo-skeletal vs muscle strain/pull vs vertebral fracture vs pelvis fracture vs hip fracture Will do: give 2 percocets stat give methocarbmaol 1000mg po once Xray left hip/pelvis CT T and L spine Reassess 05/09/18 03:16 Patient Name: PAULETTE RAE THIS IS A PRELIMINARY REPORT FROM [facility] DATE OF SERVICE: 2018-05-09 02:32:15 IMAGES: 750 EXAM: CT THORACIC SPINE WITHOUT CONTRAST and CT LUMBAR SPINE WITHOUT CONTRAST THORACIC No acute fracture or malalignment. Multilevel spondylosis. No substantial canal or neural foraminal stenosis. Minimal coronary artery calcification. Small nonobstructing stone left kidney. LUMBAR No acute fracture or malalignment. Multilevel spondylosis. Small posterior disc bulges contributing to minimal to moderate canal stenosis, worst at L3-L4. Minimal bilateral neural foraminal stenosis L5-S1. Diverticulosis colon. Individualized dose optimization techniques were used for this CT. THIS DOCUMENT HAS BEEN ELECTRONICALLY SIGNED 05/09/18 03:22 will dsicharge with methocarbamol and motrin with PMD follow up *DC/Admit/Observation/Transfer Diagnosis at time of Disposition: Back pain Qualifiers: Back pain location: low back pain Chronicity: acute Back pain laterality: left Sciatica presence: without sciatica Qualified Code(s): M54.5 - Low back pain - Discharge Dispostion Disposition: HOME Condition at time of disposition: Stable Decision to Admit order: No - Prescriptions Prescriptions: Ibuprofen [Motrin -] 600 mg PO TID #30 tablet Methocarbamol [Robaxin -] 500 mg PO TID #30 tablet - Referrals Referrals: Akash Ying MD [Primary Care Provider] - Call tomorrow - Patient Instructions Printed Discharge Instructions: Low Back Pain, DI for Low Back Pain, DI for Spinal Stenosis, Spinal Stenosis Additional Instructions: if your pain worsens or you start to experience neurological symptoms such as numbness tingling or weakness go to the nearest emergency room. Please take the motrin and them muscle relaxant as needed for pain. please follow up with your primary care doctor as soon as possible. - Post Discharge Activity
[2018-05-09 00:32] VITALS: BMI 27.0
[2018-05-09] MEDS ORDERED: METHOCARBAMOL 500 MG TABLET PO ONE (00:47)
[2018-05-09] MEDS ORDERED: METHOCARBAMOL 500 MG TABLET ONE (00:58)
--- NOTE | 2018-05-09 01:11 | PDOC ---
Attending Attestation - Resident Resident Name: Brandon Rueda - ED Attending Attestation I have performed the following: I have examined & evaluated the patient, The case was reviewed & discussed with the resident, I agree w/resident's findings & plan - Medical Decision Making 05/09/18 03:15 Patient Name: PALUETTE RAE THIS IS A PRELIMINARY REPORT FROM [facility] DATE OF SERVICE: 2018-05-09 02:32:15 IMAGES: 750 EXAM: CT THORACIC SPINE WITHOUT CONTRAST and CT LUMBAR SPINE WITHOUT CONTRAST THORACIC No acute fracture or malalignment. Multilevel spondylosis. No substantial canal or neural foraminal stenosis. Minimal coronary artery calcification. Small nonobstructing stone left kidney. LUMBAR No acute fracture or malalignment. Multilevel spondylosis. Small posterior disc bulges contributing to minimal to moderate canal stenosis, worst at L3-L4. Minimal bilateral neural foraminal stenosis L5-S1. Diverticulosis colon. Individualized dose optimization techniques were used for this CT. THIS DOCUMENT HAS BEEN ELECTRONICALLY SIGNED <Tawana Lomax - Last Filed: 05/09/18 03:15> - HPI HPI: 05/09/18 01:53 The patient is a 68 year old male, with a significant past medical history of HTN, HLS, and polycythemia, who presents to the emergency department with, left sided back pain. As per patient, 4 days ago he started going to the gym and squatted approximately 200-220lbs. Upon doing so, he began to feel a pop in his lower back. The next day when trying to pickle maker his toolbox he began to feel significant left sided back pain which radiates to his left hip. He denies any recent fevers, chills, headache or dizziness. He denies any recent nausea, vomit, diarrhea or constipation. He denies any recent chest pain or shortness of breath. He denies any recent dysuria, frequency, urgency or hematuria. Allergies: NKA Primary Care Physician: Dr. Ying - Physicial Exam PE: 05/09/18 03:41 GENERAL: Awake, alert, and fully oriented, in no acute distress HEAD: No signs of trauma EYES: PERRLA, EOMI, sclera anicteric, conjunctiva clear ENT: Auricles normal inspection, hearing grossly normal, nares patent, oropharynx clear without exudates. Moist mucosa NECK: Normal ROM, supple, no lymphadenopathy, JVD, or masses LUNGS: Breath sounds equal, clear to auscultation bilaterally. No wheezes, and no crackles HEART: Regular rate and rhythm, normal S1 and S2, no murmurs, rubs or gallops ABDOMEN: Soft, nontender, normoactive bowel sounds. No guarding, no rebound. No masses +BACK: Point tenderness of the lumbar spine. EXTREMITIES: Normal range of motion, no edema. No clubbing or cyanosis. No cords, erythema, or tenderness NEUROLOGICAL: Cranial nerves II through XII grossly intact. Normal speech, normal gait SKIN: Warm, Dry, normal turgor, no rashes or lesions noted. <Arielle Joyce - Last Filed: 05/09/18 03:42> Attestations - Attestations 05/09/18 01:53 Documentation prepared by Arielle Joyce, acting as medical planner for Tawana Lomax MD. <Arielle Joyce - Last Filed: 05/09/18 03:42>
[2018-05-09 06:53] VITALS: BP 131/77; PULSE 79; TEMP 98
== END 2018-05-09 03:42 | disposition home or self-care (01) ==
LOC: JER 00:17
DX: M54.5 Low back pain (principal); X50.0XXA Overexertion from strenuous movement or load, initial encounter; Y93.B2 Activity, push-ups, pull-ups, sit-ups; Y92.39 Other specified sports and athletic area as the place of occurrence of the external cause; Y99.8 Other external cause status; I10 Essential (primary) hypertension; Z86.73 Personal history of transient ischemic attack (TIA), and cerebral infarction without residual deficits; Z86.2 Personal history of diseases of the blood and blood-forming organs and certain disorders involving the immune mechanism
CPT/HCPCS: 72128-TC; 72131-TC; 73523-TC-FY; 99282-25

== ENCOUNTER 2019-05-09 14:39 | Emergency (ER) | payer OTHER ==
--- NOTE | 2019-05-09 14:44 | PDOC ---
Rapid Medical Evaluation Time Seen by Provider: 05/09/19 14:42 Medical Evaluation: Allergies Allergy/AdvReac Type Severity Reaction Status Date / Time No Known Drug Allergies Allergy Verified 05/09/18 00:32 05/09/19 14:42 Patient had brief in-person examination in triage cc:lesion to back of head x 3 weeks + pain to area HPI: alert and oriented x 3 HEENT: EOMI, PERRLA, small cyst to back of head orders: none This patient will proceed to ed for further evaluation Discharge Disposition - Diagnosis Scalp lesion - Referrals - Patient Instructions - Post Discharge Activity
[2019-05-09 14:46] VITALS: BP 129/88; PULSE 76; TEMP 98; BMI 27.6
[2019-05-09] MEDS ORDERED: LIDOCAINE HCL 1%, 10 MG/ML (50 mL VIAL) SQ ONE (14:59)
--- NOTE | 2019-05-09 15:56 | PDOC ---
History of Present Illness - General Chief Complaint: Abscess Boil Stated Complaint: NECK PAIN/LUMP Time Seen by Provider: 05/09/19 14:42 - History of Present Illness Initial Comments: 05/09/19 15:55 69-year-old male presents for a UA showed a painful area on his scalp which is been present for 6 weeks Past History 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 History Allergies/Adverse Reactions: Allergies Allergy/AdvReac Type Severity Reaction Status Date / Time No Known Drug Allergies Allergy Verified 05/09/18 00:32 Home Medications: Ambulatory Orders Losartan Potassium [Cozaar -] 100 mg PO DAILY #14 tablet 03/23/15 [place]-3 Fatty Acids [[place]-3] 1,000 mg PO DAILY 04/29/17 Acetaminophen [Tylenol .Regular Strength -] 650 mg PO Q6H PRN #0 tablet Amlodipine Besylate [Norvasc -] 10 mg PO DAILY #30 tablet 05/03/17 Aspirin Coated [Ecotrin -] 81 mg PO DAILY #30 tablet 05/03/17 Clonidine Patch [Catapres Tts Patch -] 0.3 mg TD WEEKLY #1 box 05/03/17 Hctz 25Mg/Triamterene [Dyazide 25/37.5 -] 1 cap PO DAILY #20 tablet 05/03/17 Ibuprofen [Motrin -] 600 mg PO TID #30 tablet 05/09/18 Methocarbamol [Robaxin -] 500 mg PO TID #30 tablet 05/09/18 Cephalexin [Keflex] 500 mg PO QID #40 capsule 05/09/19 Sulfamethoxazole/Trimethoprim [Bactrim Ds -] 1 tab PO BID #14 tablet 05/09/19 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, SHORT TERM PROBLEMS) COPD: No HTN: Yes (Polycythemia) Other medical history: Penile implant - Surgical History Abdominal Surgery: Yes (HERNIA REPAIR) Orthopedic Surgery: Yes (SHOULDER SX) - Suicide/Smoking/Psychosocial Hx Smoking History: Never smoked Have you smoked in the past 12 months: No Information on smoking cessation initiated: No Hx Alcohol Use: No Drug/Substance Use Hx: No Substance Use Type: None Hx Substance Use Treatment: No Review of Systems - Review of Systems Constitutional: No: Fever Integumentary: Yes: See HPI *Physical Exam - Vital Signs Last Vital Signs Temp Pulse Resp BP Pulse Ox 98 F 76 18 129/88 97 05/09/19 14:43 05/09/19 14:43 05/09/19 14:43 05/09/19 14:43 05/09/19 14:43 - Physical Exam Comments: 05/09/19 15:55 Is a firm mildly fluctuant indurated erythemic warm area on the posterior aspect of the occipital scalp ED Treatment Course - Medications Given in the ED: ED Medications Discontinued Medications Generic Name Dose Route Start Last Admin Trade Name Nate PRN Reason Stop Dose Admin Lidocaine HCl 20 ml 05/09/19 14:59 05/09/19 15:08 Xylocaine 1% SQ 05/09/19 15:00 20 ml ONCE ONE Administration Medical Decision Making - Medical Decision Making 05/09/19 15:54 Under aseptic technique 15 mL of 1% lidocaine without epinephrine was used to anesthetize the area. Using an 11 blade a small subcentimeter incision was made the area was deloculated there was no purulence expressed just bloody discharge the area was packed and a dry sterile dressing was placed. This was tolerated well. *DC/Admit/Observation/Transfer Diagnosis at time of Disposition: Abscess Diagnosis at time of Disposition: (Ruled Out): Scalp lesion - Discharge Dispostion Disposition: HOME Condition at time of disposition: Stable Decision to Admit order: No - Prescriptions Prescriptions: Cephalexin [Keflex] 500 mg PO QID #40 capsule Sulfamethoxazole/Trimethoprim [Bactrim Ds -] 1 tab PO BID #14 tablet - Referrals Referrals: Akash Ying MD [Primary Care Provider] - - Patient Instructions Printed Discharge Instructions: DI for Incision and Drainage of a Skin Abscess Additional Instructions: Please leave the dressing on and did not get the area wet for the next 48 hours in 48 hours may return to the emergency room for packing removal. Please take the antibiotics as directed. Return to the emergency room sooner if problems develop. Also follow-up with your primary care physician in 1-2 days for further evaluation and treatment options. - Post Discharge Activity
== END 2019-05-09 16:06 | disposition home or self-care (01) ==
LOC: JERFT 14:39
PROC: 0J900ZZ Drainage of Scalp Subcutaneous Tissue and Fascia, Open Approach (ICD-10-PCS; principal; 2019-05-09)
PROC: 3E023BZ Introduction of Anesthetic Agent into Muscle, Percutaneous Approach (ICD-10-PCS; 2019-05-09)
DX: L02.811 Cutaneous abscess of head [any part, except face] (principal); I10 Essential (primary) hypertension; Z86.73 Personal history of transient ischemic attack (TIA), and cerebral infarction without residual deficits; Z96.0 Presence of urogenital implants
CPT/HCPCS: 10060; 96372; 99282-25

== ENCOUNTER 2019-05-11 12:42 | Emergency (ER) | payer OTHER ==
--- NOTE | 2019-05-11 12:53 | PDOC ---
Rapid Medical Evaluation Time Seen by Provider: 05/11/19 12:51 Medical Evaluation: Allergies Allergy/AdvReac Type Severity Reaction Status Date / Time No Known Drug Allergies Allergy Verified 05/09/18 00:32 05/11/19 12:52 I have performed a brief in-person evaluation of this patient. The patient presents with a chief complaint of:wound check of occipital abscess , s/p I&D 2 days ago. Currently on abscess, no worsening of sxs Pertinent physical exam findings:deferred to ED provider I have ordered the following:nothing The patient will proceed to the ED for further evaluation. Discharge Disposition - Diagnosis Wound check, abscess - Referrals - Patient Instructions - Post Discharge Activity
[2019-05-11 12:54] VITALS: BP 134/84; PULSE 76; TEMP 98.3; BMI 27.8
--- NOTE | 2019-05-11 13:39 | PDOC ---
History of Present Illness - General Chief Complaint: Revisit,Wound Recheck Stated Complaint: RE VISIT Time Seen by Provider: 05/11/19 12:51 - History of Present Illness Initial Comments: 05/11/19 13:36 69-year-old male presents for reevaluation and packing removal from an I&D 2 days ago done by myself. He has not started his antibiotics yet. Past History 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 History Allergies/Adverse Reactions: Allergies Allergy/AdvReac Type Severity Reaction Status Date / Time No Known Drug Allergies Allergy Verified 05/09/18 00:32 Home Medications: Ambulatory Orders Losartan Potassium [Cozaar -] 100 mg PO DAILY #14 tablet 03/23/15 [place]-3 Fatty Acids [[place]-3] 1,000 mg PO DAILY 04/29/17 Acetaminophen [Tylenol .Regular Strength -] 650 mg PO Q6H PRN #0 tablet Amlodipine Besylate [Norvasc -] 10 mg PO DAILY #30 tablet 05/03/17 Aspirin Coated [Ecotrin -] 81 mg PO DAILY #30 tablet 05/03/17 Clonidine Patch [Catapres Tts Patch -] 0.3 mg TD WEEKLY #1 box 05/03/17 Hctz 25Mg/Triamterene [Dyazide 25/37.5 -] 1 cap PO DAILY #20 tablet 05/03/17 Ibuprofen [Motrin -] 600 mg PO TID #30 tablet 05/09/18 Methocarbamol [Robaxin -] 500 mg PO TID #30 tablet 05/09/18 Cephalexin [Keflex] 500 mg PO QID #40 capsule 05/09/19 Sulfamethoxazole/Trimethoprim [Bactrim Ds -] 1 tab PO BID #14 tablet 05/09/19 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, SHORT TERM PROBLEMS) COPD: No HTN: Yes (Polycythemia) - Surgical History Abdominal Surgery: Yes (HERNIA REPAIR) Orthopedic Surgery: Yes (SHOULDER SX) - Suicide/Smoking/Psychosocial Hx Smoking History: Never smoked Have you smoked in the past 12 months: No Hx Alcohol Use: No Drug/Substance Use Hx: No Substance Use Type: None Hx Substance Use Treatment: No Review of Systems - Review of Systems Constitutional: No: Fever *Physical Exam - Vital Signs Last Vital Signs Temp Pulse Resp BP Pulse Ox 98.3 F 76 18 134/84 96 05/11/19 12:52 05/11/19 12:52 05/11/19 12:52 05/11/19 12:52 05/11/19 12:52 - Physical Exam Comments: 05/11/19 13:36 The area about the I&D is clean dry and intact without surrounding erythema warmth and induration. No fluctuance. Packing was removed. The incision is nonpurulent no drainage Medical Decision Making - Medical Decision Making 05/11/19 13:37 Warm compresses PO antibiotics follow-up with general surgery *DC/Admit/Observation/Transfer Diagnosis at time of Disposition: Wound check, abscess - Discharge Dispostion Disposition: HOME Condition at time of disposition: Stable Decision to Admit order: No - Referrals Referrals: Akash Ying MD [Primary Care Provider] - Hitesh Ochoa MD [Staff Physician] - - Patient Instructions Additional Instructions: Change the dressing on the wound twice a day. Please strip picker the antibiotics as her pharmacy and start taking them today. Follow-up with general surgery without fail in 1-2 days return to the emergency room for worsening symptoms Tylenol and Motrin as directed for pain. - Post Discharge Activity
== END 2019-05-11 14:04 | disposition home or self-care (01) ==
LOC: JERFT 12:42
DX: Z48.01 Encounter for change or removal of surgical wound dressing (principal)
CPT/HCPCS: 99281-25

== ENCOUNTER 2019-06-16 14:03 | Inpatient (IN) | payer OTHER ==
[2019-06-16 14:15] VITALS: BMI 27.8
--- NOTE | 2019-06-16 14:32 | PDOC ---
History of Present Illness - General Chief Complaint: CVA/TIA Stated Complaint: WEAKNESS/CONFUSION - History of Present Illness Initial Comments: 67y M hx of polycythemia, htn, hx of reported blood clots to his polycythemia, per the chart a history of TIA vs CVA and past need for therapeutic phlebotomy for polycythemia symptoms who presents from Dr. Rafy Mir's office for evaluation of a witnessed syncopal episode and disorientation to time. On arrival the pt reported having a POSADA and pressure to the charge nurse and Dr. Webber. However on my interview the pt denies any symptoms, but is emotional and reports feeling 'weird' over the last week. He asks questions repeatedly 06/16/19 14:33 NIH Stroke Scale - Last Known Well Date/Time & Onset Date Last Known Well: 06/09/19 Time Last Known Well: 00:00 - Initial Evaluation Level of consciousness: Alert Ask patient the month and their age: Answers both correctly Ask patient to open & close eyes; make fist and let go: Obeys both correctly Best gaze (horizontal eye movement): Normal Visual field testing: No visual field loss Facial paresis (Show teeth/raise eyebrows/close eyes tight): Normal symmetrical movement Motor Function: Left Arm: Normal Motor Function: Right Arm: Normal (extends arm 90 (or 45) degrees for 10 seconds without drift Motor Function: Left Leg: Normal (extends leg 30 degrees for 5 seconds without drift) Motor Function: Right Leg: Normal (extends leg 30 degrees for 5 seconds without drift) Limb Ataxia: No ataxia Sensory(Use pinprick test arms,legs,trunk,face/side to side): Normal Best language (Describe picture, name items, read sentences): No Aphasia Dysarthria (read several words): Normal articulation Extinction and Inattention: No abnormality - Total Score NIH Stroke Scale Score: 0 Past History 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 History Allergies/Adverse Reactions: Allergies Allergy/AdvReac Type Severity Reaction Status Date / Time No Known Drug Allergies Allergy Verified 06/16/19 14:14 Home Medications: Ambulatory Orders Losartan Potassium [Cozaar -] 100 mg PO DAILY #14 tablet 03/23/15 [place]-3 Fatty Acids [[place]-3] 1,000 mg PO DAILY 04/29/17 Acetaminophen [Tylenol .Regular Strength -] 650 mg PO Q6H PRN #0 tablet Amlodipine Besylate [Norvasc -] 10 mg PO DAILY #30 tablet 05/03/17 Aspirin Coated [Ecotrin -] 81 mg PO DAILY #30 tablet 05/03/17 Clonidine Patch [Catapres Tts Patch -] 0.3 mg TD WEEKLY #1 box 05/03/17 Hctz 25Mg/Triamterene [Dyazide 25/37.5 -] 1 cap PO DAILY #20 tablet 05/03/17 Ibuprofen [Motrin -] 600 mg PO TID #30 tablet 05/09/18 Donepezil HCl [Aricept] 5 mg PO DAILY 06/16/19 Tamsulosin HCl [Flomax] 0.4 mg PO DAILY 06/16/19 Tamsulosin HCl [Flomax] 0.4 mg PO DAILY 06/16/19 Zolpidem Tartrate [Ambien] 10 mg PO HS 06/16/19 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 No change in hearing. No sore throat CARDIOVASCULAR: No chest pain or shortness of breath RESPIRATORY: Denies cough, hemoptysis GASTROINTESTINAL: No nausea, vomiting, diarrhea or constipation GENITOURINARY: No dysuria, frequency, or change in urination MUSCULOSKELETAL: No joint or muscle swelling or pain. No neck or back pain SKIN: No rash NEUROLOGIC: +reported syncope; Denies headache, vertigo, or change in strength/ sensation ENDOCRINE: No increased thirst. No abnormal weight change HEMATOLOGIC/LYMPHATIC: No anemia, easy bleeding, or history of blood clots ALLERGIC/IMMUNOLOGIC: No hives or skin allergy 06/16/19 14:34 Is the patient limited Sinhala proficient: No *Physical Exam - Vital Signs Last Vital Signs Temp Pulse Resp BP Pulse Ox 97.4 F L 120 H 22 H 189/91 H 97 06/16/19 14:12 06/16/19 14:12 06/16/19 14:12 06/16/19 14:12 06/16/19 14:12 - Physical Exam Comments: GENERAL: Awake, alert, and oriented to person/place/time, easily forgetful, repeats questions frequently, easily tearful HEAD: No signs of trauma, normocephalic, atraumatic EYES: PERRLA, EOMI, sclera anicteric, conjunctiva clear ENT: Hearing grossly normal, nares patent, oropharynx clear without exudates. Moist mucosa LUNGS: No distress, speaks in full sentences, clear to auscultation bilaterally HEART: Regular rate and rhythm, normal S1 and S2, no murmurs appreciated, peripheral pulses normal and equal bilaterally ABDOMEN: Soft, nontender, normoactive bowel sounds. No guarding, no rebound EXTREMITIES: Normal inspection, Normal range of motion, no edema. No clubbing or cyanosis NEUROLOGICAL: Cranial nerves II through XII grossly intact. Slow speech w/o slur and w/ appropriate answers, normal gait, no focal sensorimotor deficits SKIN: Warm, Dry 06/16/19 14:34 ED Treatment Course - LABORATORY CBC & Chemistry Diagram: 06/16/19 14:20 06/16/19 14:20 - ADDITIONAL ORDERS Additional order review: Laboratory Results 06/16/19 14:10 POC Glucometer 97 06/16/19 14:10 POC Glucometer 97 Medical Decision Making - Medical Decision Making The pt is a 69M w/ a history of HTN, questionable TIAs vs CVAs 2/2 polycythemia vera (possibly 2/2 to previous steroid use) who presents for evaluation of a witnessed syncopal episode and disorientation. Ddx: CVA/TIA, consider ACS, hypertensive urgency Not likely acute stroke as symptoms of confusion have been present for approximately 1 week and pt has not focal deficits on exam ED Course Code Raya called, pt taken to CT Pt returned, placed on monitor, labs drawn, and pt reported no active symptoms ECG CXR ECG w/ NSR; HR 83; QTc 418; T-wave inversions seen in I, II, aVF, V4-6 (also seen on previous ECG from 10/2017) CT Head IMPRESSION: Mild volume loss and likely moderate periventricular chronic microvascular ischemic disease changes. Right periventricular lacunar infarct, likely chronic. A right paramedian pontine chronic lacunar infarct is again seen. Otherwise, no gross acute intracranial pathology is identified. Correlate clinically to determine further evaluation and follow-up. 06/16/19 14:44 No leukocytosis No anemia 06/16/19 15:20 Pt now w/ more clear mentation. Able to explain that he became angry in the office and when he gets angry he can have episodes of not remembering what happened. He denies SI/HI. He continues to deny current symptoms Lytes wnl Mild elevation in Cr LFTs wnl Trop I neg Triglycerides mildly elevated to 232 Plan for tele obs for syncope, pt signed out to Dr. Kendrick 06/16/19 15:39 Case discussed w/ Dr. Terrazas, will give ASA 81mg PO once 06/16/19 16:27 Discharge - Discharge Information Problems reviewed: Yes Clinical Impression/Diagnosis: Confusion Syncope Qualifiers: Syncope type: unspecified Qualified Code(s): R55 - Syncope and collapse Hypertension Qualifiers: Hypertension type: unspecified Qualified Code(s): I10 - Essential (primary) hypertension - Admission Yes - Follow up/Referral - Patient Discharge Instructions - Post Discharge Activity
--- NOTE | 2019-06-16 14:37 | PDOC ---
Attending Attestation - Resident Resident Name: Ajay Juarez - HPI HPI: 06/16/19 15:34 Pt presents to the ED after sent from Dr. Garrett's office for confusion and syncope. Patient had a very upsetting conversation with his daughter in law, before driving to the doctor's office. Patient does not remember driving to the office, and as per Dr. Garrett, passed out when he got there. When he awoke , patient was confused. Remained confused on arrival to the ED. Now, mental status has improved. - Physicial Exam PE: 06/16/19 15:47 Agree with resident exam. patient is now alert and oriented x 3 and neurologically intact. 06/16/19 15:57 - Medical Decision Making 06/16/19 15:57 Pt presents to the ED after sent in by PCP for confusion and syncope. Now is alert and oriented x 3. CT head negative for acute findings. Will admit to medicine for syncope work up. 06/16/19 15:57
[2019-06-16] MEDS: SODIUM CHLORIDE 1,000 ML IV SCH (14:43)
[2019-06-16 14:54] LABS: BASO % 0.4 % (0-2.0); EOS % 1.3 % (0-4.5); HEMATOCRIT 42.1 % (35.4-49); HEMOGLOBIN 14.7 GM/dL (11.7-16.9); MCH 30.7 pg (25.7-33.7); MCHC 34.9 g/dl (32.0-35.9); MEAN CELL VOLUME 88.1 fl (80-96); MEAN PLT VOLUME 7.5 fl (7.5-11.1); MONO % 10.1 % (3.8-10.2); NEUT % 72.2 % (42.8-82.8); PLATELET COUNT 328 K/MM3 (134-434); RBC 4.78 M/mm3 (4.00-5.60); RDW 14.3 % (11.9-15.9); WHITE BLOOD COUNT 8.6 K/mm3 (4.0-10.0)
[2019-06-16 15:04] LABS: INR 0.98 (0.83-1.09); PROTHROMBIN TIME (PATIENT) 11.6 SEC (9.7-13.0)
[2019-06-16 15:07] LABS: ACTIVATED PTT 33.2 SECONDS (25.2-36.5)
[2019-06-16 15:30] LABS: ALBUMIN 4.1 g/dl (3.4-5.0); BILIRUBIN,TOTAL 0.3 mg/dL (0.2-1); CREATININE 1.5 mg/dL (0.55-1.3); POTASSIUM 3.8 mmol/L (3.5-5.1); TOT PROT 7.1 g/dl (6.4-8.2)
--- NOTE | 2019-06-16 15:56 | HP ---
Admitting History and Physical - Primary Care Physician PCP: Akash Ying - Admission History of Present Illness: 67y M hx of polycythemia, htn, hx of reported blood clots to his polycythemia, per the chart a history of TIA vs CVA and past need for therapeutic phlebotomy for polycythemia symptoms who presents from Dr. Rafy Mir's office for evaluation of a witnessed syncopal episode and disorientation to time. On arrival the pt reported having a POSADA and pressure to the charge nurse. 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 Cardiovascular: Yes: HTN Heme/Onc: Yes: Other (polycythemia) - Smoking History Smoking history: Never smoked Have you smoked in the past 12 months: No - Alcohol/Substance Use Hx Alcohol Use: No - Social History History of Recent Travel: No Home Medications - Allergies Allergies/Adverse Reactions: Allergies Allergy/AdvReac Type Severity Reaction Status Date / Time No Known Drug Allergies Allergy Verified 06/16/19 14:14 - Home Medications Home Medications: Ambulatory Orders Losartan Potassium [Cozaar -] 100 mg PO DAILY #14 tablet 03/23/15 [place]-3 Fatty Acids [[place]-3] 1,000 mg PO DAILY 04/29/17 Acetaminophen [Tylenol .Regular Strength -] 650 mg PO Q6H PRN #0 tablet Amlodipine Besylate [Norvasc -] 10 mg PO DAILY #30 tablet 05/03/17 Aspirin Coated [Ecotrin -] 81 mg PO DAILY #30 tablet 05/03/17 Clonidine Patch [Catapres Tts Patch -] 0.3 mg TD WEEKLY #1 box 05/03/17 Hctz 25Mg/Triamterene [Dyazide 25/37.5 -] 1 cap PO DAILY #20 tablet 05/03/17 Ibuprofen [Motrin -] 600 mg PO TID #30 tablet 05/09/18 Donepezil HCl [Aricept] 5 mg PO DAILY 06/16/19 Tamsulosin HCl [Flomax] 0.4 mg PO DAILY 06/16/19 Tamsulosin HCl [Flomax] 0.4 mg PO DAILY 06/16/19 Zolpidem Tartrate [Ambien] 10 mg PO HS 06/16/19 Review of Systems - Review of Systems Cardiovascular: reports: No Symptoms Respiratory: reports: No Symptoms Gastrointestinal: reports: No Symptoms Physical Examination Vital Signs: Vital Signs Temperature 97.8 F 06/16/19 15:32 Pulse Rate 76 06/16/19 15:32 Respiratory Rate 16 06/16/19 15:32 Blood Pressure 144/84 06/16/19 15:32 O2 Sat by Pulse Oximetry (%) 98 06/16/19 15:32 Constitutional: Yes: Calm Cardiovascular: Yes: Regular Rate and Rhythm, S1, S2 Respiratory: Yes: CTA Bilaterally Gastrointestinal: Yes: Normal Bowel Sounds, Soft Edema: No Labs: CBC, BMP 06/16/19 14:20 06/16/19 14:20 Imaging - Results Cat Scan: Report Reviewed Problem List - Problems (1) Syncope Assessment/Plan: telemetry neurology and cardiology consult carotid doppler ct head done echo renal sono lipid panel noted in TG on lovaza Code(s): R55 - SYNCOPE AND COLLAPSE Qualifiers: Syncope type: unspecified Qualified Code(s): R55 - Syncope and collapse (2) Hypertension Assessment/Plan: norvasc cozaar Code(s): I10 - ESSENTIAL (PRIMARY) HYPERTENSION Qualifiers: Hypertension type: unspecified Qualified Code(s): I10 - Essential (primary ) hypertension (3) Polycythemia Assessment/Plan: jailene clayal dr simons Code(s): D75.1 - SECONDARY POLYCYTHEMIA
[2019-06-16] MEDS ORDERED: amLODIPine BESYLATE 10 MG TABLET (FP) PO SCH (16:00)
[2019-06-16] MEDS ORDERED: amLODIPine BESYLATE 5 MG TABLET (FP) ONE (16:05)
[2019-06-16 16:10] LABS: URINE APPEARANCE CLEAR; URINE BILIRUBIN NEGATIVE (NEGATIVE); URINE COLOR YELLOW; URINE GLUCOSE (UA) NEGATIVE (NEGATIVE); URINE KETONE NEGATIVE (NEGATIVE); URINE LEUK ESTERASE NEGATIVE (NEGATIVE); URINE NITRITE NEGATIVE (NEGATIVE); URINE PROTEIN NEGATIVE (NEGATIVE); URINE UROBILINOGEN 0.2 mg/dL (0.2-1.0)
[2019-06-16] MEDS ORDERED: ASPIRIN 81 MG CHEWABLE TABLETS PO ONE (16:20)
--- NOTE | 2019-06-16 16:25 | CON.NEURO ---
Consult Consult Specialty:: Mk Referred by:: ER Reason for Consultation:: TIA - History of Present Illness History of Present Illness: 69-year-old right-handed man with history of Coronary artery disease Osteoarthritis Polycythemia HTN History of questionable CVA/TIA in the past. Patient was getting evaluated today at the urology office when he had the sudden onset of syncopal episode. No reports of any seizure-like activity noted chest pain or palpitation. Patient was brought into the emergency room at [facility] by the EMS. Upon arrival stroke protocol was initiated. 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 Patient was hemodynamically stable. Blood work did not show anemia. Patient was not on aspirin. There is no atrial fibrillation. In the beginning patient was slightly confused with mild difficulty expressing himself after 2 hours and after the CAT scan patient regained complete neurological evaluation with NIH stroke scale of 0 patient was not a candidate for TPA patient was not a candidate for thrombolysis patient was not a candidate to be transferred to a tertiary stroke center. 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: Yes: TIA Cardio/Vascular: Yes: HTN - Alcohol/Substance Use Hx Alcohol Use: No - Smoking History Smoking history: Never smoked Have you smoked in the past 12 months: No - Social History History of Recent Travel: No Home Medications - Allergies Allergies/Adverse Reactions: Allergies Allergy/AdvReac Type Severity Reaction Status Date / Time No Known Drug Allergies Allergy Verified 06/16/19 14:14 - Home Medications Home Medications: Ambulatory Orders Losartan Potassium [Cozaar -] 100 mg PO DAILY #14 tablet 03/23/15 Klemme-3 Fatty Acids [Klemme-3] 1,000 mg PO DAILY 04/29/17 Acetaminophen [Tylenol .Regular Strength -] 650 mg PO Q6H PRN #0 tablet Amlodipine Besylate [Norvasc -] 10 mg PO DAILY #30 tablet 05/03/17 Aspirin Coated [Ecotrin -] 81 mg PO DAILY #30 tablet 05/03/17 Clonidine Patch [Catapres Tts Patch -] 0.3 mg TD WEEKLY #1 box 05/03/17 Hctz 25Mg/Triamterene [Dyazide 25/37.5 -] 1 cap PO DAILY #20 tablet 05/03/17 Ibuprofen [Motrin -] 600 mg PO TID #30 tablet 05/09/18 Donepezil HCl [Aricept] 5 mg PO DAILY 06/16/19 Tamsulosin HCl [Flomax] 0.4 mg PO DAILY 06/16/19 Tamsulosin HCl [Flomax] 0.4 mg PO DAILY 06/16/19 Zolpidem Tartrate [Ambien] 10 mg PO HS 06/16/19 Review of Systems - Review of Systems Constitutional: reports: No Symptoms Eyes: reports: No Symptoms Physical Exam-Neuro Vital Signs: Vital Signs Temperature 97.8 F 06/16/19 15:32 Pulse Rate 76 06/16/19 15:32 Respiratory Rate 16 06/16/19 15:32 Blood Pressure 144/84 06/16/19 15:32 O2 Sat by Pulse Oximetry (%) 98 06/16/19 15:32 Constitutional: Yes: Well Nourished Neck: Yes: WNL Labs: CBC, BMP 06/16/19 14:20 06/16/19 14:20 INR, PTT INR 0.98 (0.83-1.09) 06/16/19 14:20 - Neuro Exam Level Of Consciousness: Yes: Oriented to Person, Oriented to Place, Oriented to Time Eyes: Yes: PERRLA Speech: WNL Dominant Hand: Right Cranial Nerves II-XII Intact: Yes Gag: Present DTR's: 1+ Left Bicep, 1+ Right Bicep, 1+ Left Brachioradialis, 1+ Right Brachioradialis Response to light touch: Abnormal Response to pain prick: Abnormal Response to temperature: Normal Response to vibration: Normal Motor Strength: 3/5: Left Arm, Right Arm, Left Leg, Right Leg Gait: Deferred Imaging - Results Cat Scan: Image Reviewed Problem List - Problems (1) Syncope Assessment/Plan: 69-year-old man with multiple medical problems presented with a syncopal episode with slurred speech NIH stroke scale now is 0 History with questionable TIA in the past Neurological differential diagnoses 1 transient ischemic attack. #2 syncope rule out cardiac arrhythmia Plan 1. Admit to the stroke unit. 2. Hematology consult. 3. Baby aspirin if there is no contraindication. 4. Echocardiogram. 5. MRI of the brain with no contrast. 6. Carotid Doppler. 7. Lipid profile in the a.m. 8. Physical therapy. 9. Speech therapy. Thank you very much for this kind referral Code(s): R55 - SYNCOPE AND COLLAPSE Qualifiers: Syncope type: unspecified Qualified Code(s): R55 - Syncope and collapse
[2019-06-16 16:29] LABS: COCAINE, UR NEGATIVE ng/ml (CUTOFF=300); OPIATES, URI NEGATIVE ng/ml (CUTOFF=300); PHENCYCLIDINE,URINE NEGATIVE ng/ml (CUTOFF=25); URINE BENZODIAZEPINES NEGATIVE ng/ml (CUTOFF=200)
[2019-06-16 16:30] LABS: METHADONE, UR NEGATIVE ng/ml (CUTOFF=300); URINE AMPHETAMINES NEGATIVE ng/ml (CUTOFF=500); URINE BARBITURATES NEGATIVE ng/ml (CUTOFF=200)
[2019-06-16] MEDS ORDERED: FLU VACCINE QUAD 60 MCG/0.5 ML (MDV 19-20) IM ONE (16:54)
--- NOTE | 2019-06-16 17:26 | CONSULT ---
Consult Consult Specialty:: Nephrology Reason for Consultation:: CKD - History of Present Illness Chief Complaint: syncope History of Present Illness: Pt is a 69 year old male with pmhx of htn, ckd, polycythemia, TIA, and chronic testosterone supplements who presented to the ER after a syncopal episode. HE says the he got into an alteration with his son and the son's spouse which caused him to get very worked up. He says he felt the room spinning before he passed out. He denies chest pain or palpitations. He denies dysura or hematuria. 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 Cardio/Vascular: Yes: HTN - Alcohol/Substance Use Hx Alcohol Use: No - Smoking History Smoking history: Never smoked Have you smoked in the past 12 months: No - Social History History of Recent Travel: No Home Medications - Allergies Allergies/Adverse Reactions: Allergies Allergy/AdvReac Type Severity Reaction Status Date / Time No Known Drug Allergies Allergy Verified 06/16/19 14:14 - Home Medications Home Medications: Ambulatory Orders Losartan Potassium [Cozaar -] 100 mg PO DAILY #14 tablet 03/23/15 Glen[place]-3 Fatty Acids [[place]ville-3] 1,000 mg PO DAILY 04/29/17 Acetaminophen [Tylenol .Regular Strength -] 650 mg PO Q6H PRN #0 tablet Amlodipine Besylate [Norvasc -] 10 mg PO DAILY #30 tablet 05/03/17 Aspirin Coated [Ecotrin -] 81 mg PO DAILY #30 tablet 05/03/17 Clonidine Patch [Catapres Tts Patch -] 0.3 mg TD WEEKLY #1 box 05/03/17 Hctz 25Mg/Triamterene [Dyazide 25/37.5 -] 1 cap PO DAILY #20 tablet 05/03/17 Ibuprofen [Motrin -] 600 mg PO TID #30 tablet 05/09/18 Donepezil HCl [Aricept] 5 mg PO DAILY 06/16/19 Tamsulosin HCl [Flomax] 0.4 mg PO DAILY 06/16/19 Tamsulosin HCl [Flomax] 0.4 mg PO DAILY 06/16/19 Zolpidem Tartrate [Ambien] 10 mg PO HS 06/16/19 Family Medical History Family History: Denies Review of Systems - Review of Systems Constitutional: reports: Malaise Eyes: reports: No Symptoms HENT: reports: No Symptoms Neck: reports: No Symptoms Cardiovascular: reports: No Symptoms Respiratory: reports: No Symptoms Gastrointestinal: reports: No Symptoms Genitourinary: reports: No Symptoms Musculoskeletal: reports: No Symptoms Neurological: reports: Syncope Endocrine: reports: No Symptoms Psychiatric: reports: No Symptoms Physical Exam Vital Signs: Vital Signs Temperature 97.8 F 06/16/19 15:36 Pulse Rate 78 06/16/19 15:36 Respiratory Rate 16 06/16/19 15:36 Blood Pressure 140/90 06/16/19 15:36 O2 Sat by Pulse Oximetry (%) 98 06/16/19 15:36 Constitutional: Yes: Calm Eyes: Yes: Conjunctiva Clear HENT: Yes: Atraumatic Neck: Yes: Supple Cardiovascular: Yes: S1, S2 Respiratory: Yes: CTA Bilaterally Gastrointestinal: Yes: Soft Renal/: Yes: WNL Musculoskeletal: Yes: WNL Edema: No Neurological: Yes: Oriented Psychiatric: Yes: Oriented Labs: CBC, BMP 06/16/19 14:20 06/16/19 14:20 Laboratory Tests 05/01/17 05/02/17 05/03/17 14:30 06:05 05:42 Hgb Hct Creatinine 1.4 H 1.2 1.4 H Est GFR (CKD-EPI)NonAf Urine Protein Urine Blood Opiates Screen Methadone Screen Barbiturate Screen Phencyclidine Screen Ur Amphetamines Screen MDMA (Ecstasy) Screen Benzodiazepines Screen Cocaine Screen U Marijuana (THC) Screen 10/19/17 02/24/19 06/16/19 12:45 11:10 14:20 Hgb 14.7 Hct 42.1 Creatinine 1.3 1.6 H Est GFR (CKD-EPI)NonAf Urine Protein Urine Blood Opiates Screen Methadone Screen Barbiturate Screen Phencyclidine Screen Ur Amphetamines Screen MDMA (Ecstasy) Screen Benzodiazepines Screen Cocaine Screen U Marijuana (THC) Screen 06/16/19 06/16/19 06/16/19 14:20 15:50 15:50 Hgb Hct Creatinine 1.5 H Est GFR (CKD-EPI)NonAf 46.83 Urine Protein Negative Urine Blood Negative Opiates Screen Negative Methadone Screen Negative Barbiturate Screen Negative Phencyclidine Screen Negative Ur Amphetamines Screen Negative MDMA (Ecstasy) Screen Negative Benzodiazepines Screen Negative Cocaine Screen Negative U Marijuana (THC) Screen Negative Imaging - Results Chest X-ray: Report Reviewed Cat Scan: Report Reviewed Problem List - Problems (1) Syncope Code(s): R55 - SYNCOPE AND COLLAPSE Qualifiers: Syncope type: unspecified Qualified Code(s): R55 - Syncope and collapse Assessment/Plan Current Medications Generic Name Dose Route Start Last Admin Trade Name Freq PRN Reason Stop Dose Admin Amlodipine Besylate 10 mg 06/16/19 16:00 06/16/19 16:05 Norvasc - PO 10 mg DAILY JULIETA Administration Aspirin 81 mg 06/17/19 16:18 Ecotrin - PO 06/17/19 16:19 ONCE ONE Sodium Chloride 1,000 mls @ 42 mls/hr 06/16/19 14:15 06/16/19 14:43 Normal Saline - IV 42 mls/hr ASDIR JULIETA Administration Losartan Potassium 100 mg 06/17/19 10:00 Cozaar - PO DAILY JULIETA [id number] Ethyl Esters 2 gm 06/16/19 22:00 Lovaza - PO BID JULIETA Tamsulosin HCl 0.4 mg 06/17/19 08:30 Flomax - PO DAILY@0830 JULIETA Impression 1. HTN 2. polycythemia 3. hx of CVA 4. dyspnea 5. chest pain 6. chronic testonerone supplementation 7. HEATHER 8. syncope Plan - monitor renal function - neuro workup in progress - ua neg for blood or protein - can see pt in office - pt admitted to strong unit
--- NOTE | 2019-06-16 19:06 | CONSULT ---
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 history of TIA vs CVA who presents from Dr. Rafy Mir's office for evaluation of a witnessed syncopal episode and disorientation to time. On arrival the pt reported having a headache and pressure. However on my interview the pt denies any symptoms, but is emotional and reports feeling 'weird' over the last week. He asks questions repeatedly. He is anxious. 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 History HTN CVA--Lt. frontal infarct/ lacunar infarcts 11/19/18 Allergies/Adverse Reactions: Allergies Allergy/AdvReac Type Severity Reaction Status Date / Time No Known Drug Allergies Allergy Verified 06/16/19 14:14 Home Medications: Ambulatory Orders Losartan Potassium [Cozaar -] 100 mg PO DAILY #14 tablet 03/23/15 Falconer-3 Fatty Acids [Falconer-3] 1,000 mg PO DAILY 04/29/17 Acetaminophen [Tylenol .Regular Strength -] 650 mg PO Q6H PRN #0 tablet Amlodipine Besylate [Norvasc -] 10 mg PO DAILY #30 tablet 05/03/17 Aspirin Coated [Ecotrin -] 81 mg PO DAILY #30 tablet 05/03/17 Clonidine Patch [Catapres Tts Patch -] 0.3 mg TD WEEKLY #1 box 05/03/17 Hctz 25Mg/Triamterene [Dyazide 25/37.5 -] 1 cap PO DAILY #20 tablet 05/03/17 Ibuprofen [Motrin -] 600 mg PO TID #30 tablet 05/09/18 Donepezil HCl [Aricept] 5 mg PO DAILY 06/16/19 Tamsulosin HCl [Flomax] 0.4 mg PO DAILY 06/16/19 Tamsulosin HCl [Flomax] 0.4 mg PO DAILY 06/16/19 Zolpidem Tartrate [Ambien] 10 mg PO HS 06/16/19 ) - Surgical History Abdominal Surgery: Yes (HERNIA REPAIR) Orthopedic Surgery: Yes (SHOULDER SX) - Psycho Social/Smoking Cessation Hx Smoking History: Never smoked - Vital Signs Last Vital Signs Temp Pulse Resp BP Pulse Ox 97.4 F L 120 H 22 H 189/91 H 97 06/16/19 14:12 06/16/19 14:12 06/16/19 14:12 06/16/19 14:12 06/16/19 14:12 - Physical Exam Comments: GENERAL: Awake, alert, and oriented to person/place/time, easily forgetful, repeats questions frequently, easily tearful LUNGS: No distress, speaks in full sentences, clear to auscultation bilaterally HEART: Regular rate and rhythm, normal S1 and S2, no murmurs appreciated, peripheral pulses normal and equal bilaterally ABDOMEN: Soft, nontender, normoactive bowel sounds. No guarding, no rebound EXTREMITIES: Normal inspection, Normal range of motion, no edema. No clubbing or cyanosis NEUROLOGICAL: Cranial nerves II through XII grossly intact. Slow speech w/o slur and w/ appropriate answers, normal gait, no focal sensorimotor deficits SKIN: Warm, Dry Labs/Meds reviewed A/P 69M w/ a history of HTN, anxiety ,questionable TIAs vs CVAs , h/o secondary polycytjhemia due to testosterone who presents for evaluation of a witnessed syncopal episode and disorientation. h/o Lt. frontal acute infarct in 11/30 MRI also showed lacumar infarcts at that time has HTN/anxiety Will need renal follow up ?? 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
--- NOTE | 2019-06-16 21:22 | EKG ---
Test Reason : Blood Pressure : / mmHG Vent. Rate : 083 BPM Atrial Rate : 083 BPM P-R Int : 196 ms QRS Dur : 094 ms QT Int : 356 ms P-R-T Axes : 060 045 244 degrees QTc Int : 418 ms NORMAL SINUS RHYTHM SEPTAL INFARCT , AGE UNDETERMINED ABNORMAL ECG WHEN COMPARED WITH ECG OF 19-OCT-2017 11:30, SEPTAL INFARCT IS NOW PRESENT Confirmed by EVELIN LAL, JOSE ([id number]) on 06/16/2019 9:22:06 PM Referred By: Confirmed By:JOSE WATERS MD
[2019-06-16] MEDS: OMEGA-3 ACID ETHYL ESTERS (FATTY-ACIDS) 1 GM CAPSULE (FP) PO SCH (21:26)
--- NOTE | 2019-06-17 07:15 | CON.CARD ---
Consult Consult Specialty:: Cardiology Referred by:: Dr. Alvarado Reason for Consultation:: syncope - History of Present Illness Chief Complaint: "I passed out" History of Present Illness: 69M Pt is a 69 year old male with pmhx of htn, ckd, polycythemia, TIA, and chronic testosterone supplements who presented to the ER after a syncopal episode. HE says the he got into an alteration with his son and the son's spouse which caused him to get very worked up. He says he felt the room spinning before he passed out. He denies chest pain or palpitations. He denies dysura or hematuria. 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 Denies CP, SOB. + palps No edema, PND, orthopnea. 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 Cardio/Vascular: Yes: HTN Pulmonary: No: Asthma, Bronchitis, Cancer, COPD, O2 Dependent, Pneumonia, Previously Intubated, Pulmonary Embolus, Pulmonary Fibrosis, Sleep Apnea, Other Gastrointestinal: No: Ascites, Cancer, Constipation, Crohn's Disease, Diverticulitis, Diverticulosis, Esophageal Varices, Gastritis, GERD, GI Bleed, Hemorrhoids, Hiatal Hernia, Inflamatory Bowel Disease, Irritable Bowel Disease, Pancreatitis, Peptic Ulcer Disease, Ulcerative Colitis, Other Hepatobiliary: No: Cirrhosis, Cholelithiasis, Cholecystitis, Choledocholithiasis , Hepatitis A, Hepatitis B, Hepatitis C, Other Renal/: No: Renal Failure, Renal Inusuff, BPH, Cancer, Hematuria, Hemodialysis , Neurogenic Bladder, Renal Calculi, UTI, Other Heme/Onc: No: Anemia, B12 Deficiency, Bleeding Disorder, Cancer, Current Chemotherapy, Current Radiation Therapy, Hemochromatosis, Hypercoaguable State, Myeloproliferative Synd, Sickle Cell Disease, Sickle Cell Trait, Thrombocytopenia, Other Infectious Disease: No: AIDS, C-Diff, Herpes Zoster, HIV, MRSA, STD's, Tuberculosis, VREF, Other Psych: No: Addictions, Anxiety, Bipolar, Depression, Panic, Psychosis, Schizophrenia, Other Musculoskeletal: No: Bursitis, Chronic low back pain, Hemiparesis, Hemiplegia, Osteoarthritis, Paraplegia, Other Rheumatology: No: Fibromyalgia, Gout, Lupus, Rheumatoid Arthritis, Sarcoidosis, Vasculitis, Other - Alcohol/Substance Use Hx Alcohol Use: No - Smoking History Smoking history: Never smoked Have you smoked in the past 12 months: No - Social History History of Recent Travel: No Home Medications - Allergies Allergies/Adverse Reactions: Allergies Allergy/AdvReac Type Severity Reaction Status Date / Time No Known Drug Allergies Allergy Verified 06/16/19 14:14 - Home Medications Home Medications: Ambulatory Orders Losartan Potassium [Cozaar -] 100 mg PO DAILY #14 tablet 03/23/15 Arnold-3 Fatty Acids [Arnold-3] 1,000 mg PO DAILY 04/29/17 Acetaminophen [Tylenol .Regular Strength -] 650 mg PO Q6H PRN #0 tablet Amlodipine Besylate [Norvasc -] 10 mg PO DAILY #30 tablet 05/03/17 Aspirin Coated [Ecotrin -] 81 mg PO DAILY #30 tablet 05/03/17 Clonidine Patch [Catapres Tts Patch -] 0.3 mg TD WEEKLY #1 box 05/03/17 Hctz 25Mg/Triamterene [Dyazide 25/37.5 -] 1 cap PO DAILY #20 tablet 05/03/17 Ibuprofen [Motrin -] 600 mg PO TID #30 tablet 05/09/18 Donepezil HCl [Aricept] 5 mg PO DAILY 06/16/19 Tamsulosin HCl [Flomax] 0.4 mg PO DAILY 06/16/19 Tamsulosin HCl [Flomax] 0.4 mg PO DAILY 06/16/19 Zolpidem Tartrate [Ambien] 10 mg PO HS 06/16/19 Family Medical History Family History: Unremarkable Review of Systems - Review of Systems Constitutional: reports: No Symptoms Eyes: reports: No Symptoms HENT: reports: No Symptoms Neck: reports: No Symptoms Cardiovascular: reports: No Symptoms, Palpitations Respiratory: reports: No Symptoms Gastrointestinal: reports: No Symptoms Genitourinary: reports: No Symptoms Breasts: reports: No Symptoms Reported Musculoskeletal: reports: No Symptoms Integumentary: reports: No Symptoms Neurological: reports: Syncope Endocrine: reports: No Symptoms Hematology/Lymphatic: reports: No Symptoms - Risk Factors Known Risk Factors: Yes: Hypertension, Prior [place] /Emb Stroke Vital Signs: Vital Signs Temperature 97.6 F 06/17/19 05:40 Pulse Rate 74 06/17/19 05:40 Respiratory Rate 20 06/17/19 05:40 Blood Pressure 117/75 06/17/19 05:40 O2 Sat by Pulse Oximetry (%) 96 06/16/19 21:00 Constitutional: Yes: Calm Neck: Yes: Trachea Midline Respiratory: Yes: CTA Bilaterally Gastrointestinal: Yes: Soft (nt) JVD: No Carotid Bruit: No Heart Sounds: Yes: S1, S2 (rrr) Edema: No Neurological: Yes: Alert, Oriented ...Motor Strength: WNL - Other Data Labs, Other Data: INR, PTT INR 0.98 (0.83-1.09) 06/16/19 14:20 Troponin, BNP 06/16/19 14:20 Troponin I < 0.02 Troponin, BNP 06/16/19 14:20 Troponin I < 0.02 Laboratory Tests 06/16/19 06/16/19 06/17/19 14:20 15:50 06:13 WBC 11.4 H Hgb 14.6 Plt Count 309 INR Sodium Potassium Creatinine Troponin I < 0.02 B-Natriuretic Peptide Opiates Screen Negative Methadone Screen Negative Barbiturate Screen Negative Phencyclidine Screen Negative Ur Amphetamines Screen Negative MDMA (Ecstasy) Screen Negative Benzodiazepines Screen Negative Cocaine Screen Negative U Marijuana (THC) Screen Negative RPR Titer 06/17/19 06/17/19 06/17/19 06:13 06:13 06:13 WBC Hgb Plt Count INR 1.02 Sodium 140 Potassium 3.8 Creatinine 1.3 Troponin I < 0.02 B-Natriuretic Peptide 286.3 H Opiates Screen Methadone Screen Barbiturate Screen Phencyclidine Screen Ur Amphetamines Screen MDMA (Ecstasy) Screen Benzodiazepines Screen Cocaine Screen U Marijuana (THC) Screen RPR Titer Nonreactive NSR 66, 1st degree AVB, NSST TELE: PAF Echo: Pending Ejection Fraction %: LVEF > or = 40 % Imaging - Results X-ray: Report Reviewed Cat Scan: Report Reviewed EKG: Image Reviewed Assessment/Plan IMP: TIA vs Syncope Prior CVAs PAF REC: 1. Tele reveals PAF, AC indicated. D/w Neuro, will start Eliquis. Start Metoprolol 25mg daily. 2. Echo 3. Neuro work up as outlined by Neurology
[2019-06-17 07:22] LABS: BASO % 0.9 % (0-2.0); EOS % 1.7 % (0-4.5); HEMOGLOBIN 14.6 GM/dL (11.7-16.9); LYMPH % 11.3 % (8-40); MCH 30.6 pg (25.7-33.7); MCHC 34.9 g/dl (32.0-35.9); MEAN CELL VOLUME 87.7 fl (80-96); MEAN PLT VOLUME 7.7 fl (7.5-11.1); MONO % 9.2 % (3.8-10.2); NEUT % 76.9 % (42.8-82.8); PLATELET COUNT 309 K/MM3 (134-434); RBC 4.78 M/mm3 (4.00-5.60); WHITE BLOOD COUNT 11.4 K/mm3 (4.0-10.0)
[2019-06-17 07:52] LABS: INR 1.02 (0.83-1.09)
[2019-06-17 07:54] LABS: ACTIVATED PTT 31.1 SECONDS (25.2-36.5); ANION GAP 7 MMOL/L (8-16); CALCIUM 8.7 mg/dL (8.5-10.1); CHLORIDE 102 mmol/L (98-107); CO2 30 mmol/L (21-32); CREATININE 1.3 mg/dL (0.55-1.3); GLUCOSE,RANDOM 97 mg/dL (74-106); MAGNESIUM 1.8 mg/dL (1.8-2.4); N-TERMINAL BNP 286.3 pg/ml (5-125); PHOSPHOROUS 2.6 mg/dL (2.5-4.9); POTASSIUM 3.8 mmol/L (3.5-5.1); SODIUM 140 mmol/L (136-145)
--- NOTE | 2019-06-17 10:54 | ECHO ---
Name: BOOKER BAKER Exam:Adult Echocardiogram Study Date: 06/17/2019 08:43 AM Age: 69 yrs Reason For Study: CVA Height: 71 in Weight: 200 lb BSA: 2.1 m2 MMode/2D Measurements & Calculations IVSd: 0.97 cm Ao root diam: 3.1 cm LVIDd: 5.1 cm LA dimension: 3.2 cm LVIDs: 3.4 cm LVPWd: 1.0 cm EDV(Teich): 124.8 ml LVOT diam: 2.2 cm ESV(Teich): 47.0 ml Doppler Measurements & Calculations MV E max navdeep: 51.8 cm/sec Ao V2 max: 164.8 cm/sec MV A max navdeep: 99.7 cm/sec Ao max P.9 mmHg MV E/A: 0.52 Ao V2 mean: 128.1 cm/sec MV dec time: 0.32 sec Ao mean P.2 mmHg Ao V2 VTI: 30.7 cm ARIELA(I,D): 3.1 cm2 ARIELA(V,D): 2.8 cm2 LV V1 max P.1 mmHg MR max navdeep: 268.5 cm/sec LV V1 mean P.1 mmHg MR max P.8 mmHg LV V1 max: 123.9 cm/sec LV V1 mean: 81.7 cm/sec LV V1 VTI: 25.6 cm SV(LVOT): 96.5 ml TR max navdeep: 135.0 cm/sec TR max P.3 mmHg Med Peak E' Navdeep: 5.1 cm/sec Med E/e': 10.2 Lat Peak E' Navdeep: 7.7 cm/sec Lat E/e': 6.7 Left Ventricle Mild to moderate basal septal hypertrophy. Ejection Fraction = 55-60%. Left ventricular systolic func tion is normal. The transmitral spectral Doppler flow pattern is suggestive of impaired LV relaxation. Right Ventricle The right ventricle is normal in size and function. Atria Normal left and right atrial size and function. Mitral Valve The mitral valve is normal in structure and function. There is no mitral valve stenosis. There is tra ce to mild mitral regurgitation. Tricuspid Valve The tricuspid valve is normal in structure and function. There is mild tricuspid regurgitation. Aortic Valve Focal/ nodular calcification aortic valve. No hemodynamically significant valvular aortic stenosis. N o aortic regurgitation is present. Pulmonic Valve The pulmonic valve is not well seen, but is grossly normal. There is no pulmonic valvular stenosis. Great Vessels The aortic root is normal size. Pericardium/Pleura There is no pericardial effusion. Interpretation Summary Ejection Fraction = 55-60%. Left ventricular systolic function is normal. The transmitral spectral Doppler flow pattern is suggestive of impaired LV relaxation. Mild to moderate basal septal hypertrophy. The right ventricle is normal in size and function. There is trace to mild mitral regurgitation. There is mild tricuspid regurgitation. Focal/ nodular calcification aortic valve. MD Ponce *Rubio 06/17/2019 10:53 AM
[2019-06-17] MEDS: LOSARTAN POTASSIUM 50 MG TABLET (FP) PO SCH (11:18)
[2019-06-17] MEDS: OMEGA-3 ACID ETHYL ESTERS (FATTY-ACIDS) 1 GM CAPSULE (FP) PO SCH ×2 (11:18→21:40)
[2019-06-17] MEDS: TAMSULOSIN HCL 0.4 MG CAP PO SCH (11:18)
[2019-06-17] MEDS: APIXABAN 5 MG TABLET PO SCH ×2 (12:41→21:40)
[2019-06-17] MEDS: metoPROLOL SUCCINATE 25 MG TAB.SR.24H (FP) PO SCH (12:41)
--- NOTE | 2019-06-17 13:52 | PN ---
Progress Note, Physician History of Present Illness: Pt seen and examined at bedside. He is awake and alert. He denies shortness of breath. - Current Medication List Current Medications: Active Medications Apixaban (Eliquis -) 5 mg PO BID [facility] Last Admin: 06/17/19 12:41 Dose: 5 mg Aspirin (Ecotrin -) 81 mg PO ONCE ONE Stop: 06/17/19 16:19 Sodium Chloride (Normal Saline -) 1,000 mls @ 42 mls/hr IV ASDIR [facility] Last Admin: 06/16/19 14:43 Dose: 42 mls/hr Losartan Potassium (Cozaar -) 100 mg PO DAILY [facility] Last Admin: 06/17/19 11:18 Dose: 100 mg Metoprolol Succinate (Toprol Xl -) 25 mg PO DAILY [facility] Last Admin: 06/17/19 12:41 Dose: 25 mg [id number] Ethyl Esters (Lovaza -) 2 gm PO BID [facility] Last Admin: 06/17/19 11:18 Dose: 2 gm Tamsulosin HCl (Flomax -) 0.4 mg PO DAILY@0830 [facility] Last Admin: 06/17/19 11:18 Dose: 0.4 mg - Objective Vital Signs: Vital Signs Temperature 98 F 06/17/19 10:00 Pulse Rate 82 06/17/19 10:00 Respiratory Rate 20 06/17/19 10:00 Blood Pressure 114/54 L 06/17/19 10:00 O2 Sat by Pulse Oximetry (%) 99 06/17/19 10:00 Constitutional: Yes: Calm Eyes: Yes: Conjunctiva Clear HENT: Yes: Atraumatic Neck: Yes: Supple Cardiovascular: Yes: S1, S2 Respiratory: Yes: CTA Bilaterally Gastrointestinal: Yes: Soft Musculoskeletal: Yes: WNL Edema: No Neurological: Yes: Oriented Psychiatric: Yes: Oriented Labs: CBC, BMP 06/17/19 06:13 06/17/19 06:13 INR, PTT INR 1.02 (0.83-1.09) 06/17/19 06:13 Problem List - Problems (1) Syncope Code(s): R55 - SYNCOPE AND COLLAPSE Qualifiers: Syncope type: unspecified Qualified Code(s): R55 - Syncope and collapse Assessment/Plan Current Medications Generic Name Dose Route Start Last Admin Trade Name Freq PRN Reason Stop Dose Admin Apixaban 5 mg 06/17/19 10:00 06/17/19 12:41 Eliquis - PO 5 mg BID JULIETA Administration Aspirin 81 mg 06/17/19 16:18 Ecotrin - PO 06/17/19 16:19 ONCE ONE Sodium Chloride 1,000 mls @ 42 mls/hr 06/16/19 14:15 06/16/19 14:43 Normal Saline - IV 42 mls/hr ASDIR JULIETA Administration Losartan Potassium 100 mg 06/17/19 10:00 06/17/19 11:18 Cozaar - PO 100 mg DAILY JULIETA Administration Metoprolol Succinate 25 mg 06/17/19 10:00 06/17/19 12:41 Toprol Xl - PO 25 mg DAILY JULIETA Administration [id number] Ethyl Esters 2 gm 06/16/19 22:00 06/17/19 11:18 Lovaza - PO 2 gm BID JULIETA Administration Tamsulosin HCl 0.4 mg 06/17/19 08:30 06/17/19 11:18 Flomax - PO 0.4 mg DAILY@0830 JULIETA Administration Impression 1. HTN 2. polycythemia 3. hx of CVA 4. dyspnea 5. chest pain 6. chronic testonerone supplementation 7. HEATHER 8. syncope 9. p- a-fib Plan - renal function improved - can see in office - can stop fluids - monitor bp - cardio input appreciated - volume status stable - will follow PRN
--- NOTE | 2019-06-17 13:54 | CONSULT ---
Consultation: REQUESTING PROVIDER: CONSULT REQUEST: We have been asked to medically evaluate this patient for ( specify). HISTORY OF PRESENT ILLNESS: REVIEW OF SYSTEMS: CONSTITUTIONAL: Absent: fever, chills, diaphoresis, generalized weakness, malaise, loss of appetite, weight change HEENT: Absent: rhinorrhea, nasal congestion, throat pain, throat swelling, difficulty swallowing, mouth swelling, ear pain, eye pain, visual changes CARDIOVASCULAR: Absent: chest pain, syncope, palpitations, irregular heart rate, lightheadedness , peripheral edema RESPIRATORY: Absent: cough, shortness of breath, dyspnea with exertion, orthopnea, wheezing, stridor, hemoptysis GASTROINTESTINAL: Absent: abdominal pain, abdominal distension, nausea, vomiting, diarrhea, constipation, melena, hematochezia GENITOURINARY: Absent: dysuria, frequency, urgency, hesitancy, hematuria, flank pain, genital pain MUSCULOSKELETAL: Absent: myalgia, arthralgia, joint swelling, back pain, neck pain SKIN: Absent: rash, itching, pallor HEMATOLOGIC/IMMUNOLOGIC: Absent: easy bleeding, easy bruising, lymphadenopathy, frequent infections ENDOCRINE: Absent: unexplained weight gain, unexplained weight loss, heat intolerance, cold intolerance NEUROLOGIC: Absent: headache, focal weakness or paresthesias, dizziness, unsteady gait, seizure, mental status changes, bladder or bowel incontinence PSYCHIATRIC: Absent: anxiety, depression, suicidal or homicidal ideation, hallucinations. PHYSICAL EXAMINATION Vital Signs - 24 hr 06/16/19 06/16/19 06/16/19 14:12 14:30 15:32 Temperature 97.4 F L 97.4 F L 97.8 F Pulse Rate 120 H Pulse Rate [ 72 76 Apical] Respiratory 22 H 16 16 Rate Blood Pressure 189/91 H Blood Pressure 140/101 H [Left Arm] Blood Pressure 144/84 [Right Arm] O2 Sat by Pulse 97 97 98 Oximetry (%) 06/16/19 06/16/19 06/16/19 15:36 20:45 21:00 Temperature 97.8 F 97.9 F Pulse Rate 78 93 H Pulse Rate [ Apical] Respiratory 16 20 Rate Blood Pressure 140/90 108/69 Blood Pressure [Left Arm] Blood Pressure [Right Arm] O2 Sat by Pulse 98 96 Oximetry (%) 06/16/19 06/17/19 06/17/19 22:55 00:17 01:31 Temperature 98.1 F Pulse Rate 80 55 L 60 Pulse Rate [ Apical] Respiratory 20 Rate Blood Pressure 107/67 112/66 Blood Pressure [Left Arm] Blood Pressure [Right Arm] O2 Sat by Pulse Oximetry (%) 06/17/19 06/17/19 05:40 10:00 Temperature 97.6 F 98 F Pulse Rate 74 82 Pulse Rate [ Apical] Respiratory 20 20 Rate Blood Pressure 117/75 114/54 L Blood Pressure [Left Arm] Blood Pressure [Right Arm] O2 Sat by Pulse 99 Oximetry (%) GENERAL: Awake, alert, and fully oriented, in no acute distress. HEAD: Normal with no signs of trauma. EYES: Pupils equal, round and reactive to light, extraocular movements intact, sclera anicteric, conjunctiva clear. No lid lag. EARS, NOSE, THROAT: Ears normal, nares patent, oropharynx clear without exudates. Moist mucous membranes. NECK: Normal range of motion, supple without lymphadenopathy, JVD, or masses. LUNGS: Breath sounds equal, clear to auscultation bilaterally. No wheezes, and no crackles. No accessory muscle use. HEART: Regular rate and rhythm, normal S1 and S2 without murmur, rub or gallop. ABDOMEN: Soft, nontender, not distended, normoactive bowel sounds, no guarding, no rebound, no masses. No hepatomegaly or splenomegaly. MUSCULOSKELETAL: Normal range of motion at all joints. No bony deformities or tenderness. No CVA tenderness. UPPER EXTREMITIES: 2+ pulses, warm, well-perfused. No cyanosis. No clubbing. Cap refill <2 seconds. No peripheral edema. LOWER EXTREMITIES: 2+ pulses, warm, well-perfused. No calf tenderness. No peripheral edema. NEUROLOGICAL: Cranial nerves II-XII intact. Normal speech. Normal gait. PSYCHIATRIC: Cooperative. Good eye contact. Appropriate mood and affect. SKIN: Warm, dry, normal turgor, no rashes or lesions noted. Laboratory Results - last 24 hr 06/16/19 06/16/19 06/16/19 14:10 14:20 14:20 WBC 8.6 RBC 4.78 Hgb 14.7 Hct 42.1 MCV 88.1 MCH 30.7 MCHC 34.9 RDW 14.3 Plt Count 328 MPV 7.5 Absolute Neuts (auto) 6.2 Neutrophils % 72.2 Lymphocytes % 16.0 Monocytes % 10.1 Eosinophils % 1.3 Basophils % 0.4 Nucleated RBC % 0 ESR PT with INR INR PTT (Actin FS) Sodium Potassium Chloride Carbon Dioxide Anion Gap BUN Creatinine Est GFR (CKD-EPI)AfAm Est GFR (CKD-EPI)NonAf POC Glucometer 97 Random Glucose Hemoglobin A1c % Calcium Phosphorus Magnesium Total Bilirubin AST ALT Alkaline Phosphatase Creatine Kinase 301 Creatine Kinase Index 1.3 CK-MB (CK-2) 4.0 H Troponin I < 0.02 B-Natriuretic Peptide Total Protein Albumin Triglycerides Cholesterol Total LDL Cholesterol HDL Cholesterol Urine Color Urine Appearance Urine pH Ur Specific [place] Urine Protein Urine Glucose (UA) Urine Ketones Urine Blood Urine Nitrite Urine Bilirubin Urine Urobilinogen Ur Leukocyte Esterase Opiates Screen Methadone Screen Barbiturate Screen Phencyclidine Screen Ur Amphetamines Screen MDMA (Ecstasy) Screen Benzodiazepines Screen Cocaine Screen U Marijuana (THC) Screen RPR Titer Blood Type Antibody Screen 06/16/19 06/16/19 06/16/19 14:20 14:20 14:20 WBC RBC Hgb Hct MCV MCH MCHC RDW Plt Count MPV Absolute Neuts (auto) Neutrophils % Lymphocytes % Monocytes % Eosinophils % Basophils % Nucleated RBC % ESR PT with INR INR PTT (Actin FS) Sodium 140 Potassium 3.8 Chloride 103 Carbon Dioxide 28 Anion Gap 8 BUN 26.0 H Creatinine 1.5 H Est GFR (CKD-EPI)AfAm 54.27 Est GFR (CKD-EPI)NonAf 46.83 POC Glucometer Random Glucose 88 Hemoglobin A1c % Calcium 9.0 Phosphorus Magnesium Total Bilirubin 0.3 AST 23 ALT 35 Alkaline Phosphatase 94 Creatine Kinase Creatine Kinase Index CK-MB (CK-2) Troponin I B-Natriuretic Peptide Total Protein 7.1 Albumin 4.1 Triglycerides 232 H Cholesterol 156 Total LDL Cholesterol 92 HDL Cholesterol 33 L Urine Color Urine Appearance Urine pH Ur Specific [place] Urine Protein Urine Glucose (UA) Urine Ketones Urine Blood Urine Nitrite Urine Bilirubin Urine Urobilinogen Ur Leukocyte Esterase Opiates Screen Methadone Screen Barbiturate Screen Phencyclidine Screen Ur Amphetamines Screen MDMA (Ecstasy) Screen Benzodiazepines Screen Cocaine Screen U Marijuana (THC) Screen RPR Titer Blood Type Antibody Screen 06/16/19 06/16/19 06/16/19 14:20 14:20 15:50 WBC RBC Hgb Hct MCV MCH MCHC RDW Plt Count MPV Absolute Neuts (auto) Neutrophils % Lymphocytes % Monocytes % Eosinophils % Basophils % Nucleated RBC % ESR PT with INR 11.60 INR 0.98 PTT (Actin FS) 33.2 Sodium Potassium Chloride Carbon Dioxide Anion Gap BUN Creatinine Est GFR (CKD-EPI)AfAm Est GFR (CKD-EPI)NonAf POC Glucometer Random Glucose Hemoglobin A1c % Calcium Phosphorus Magnesium Total Bilirubin AST ALT Alkaline Phosphatase Creatine Kinase Creatine Kinase Index CK-MB (CK-2) Troponin I B-Natriuretic Peptide Total Protein Albumin Triglycerides Cholesterol Total LDL Cholesterol HDL Cholesterol Urine Color Yellow Urine Appearance Clear Urine pH 8.0 Ur Specific [place] 1.011 Urine Protein Negative Urine Glucose (UA) Negative Urine Ketones Negative Urine Blood Negative Urine Nitrite Negative Urine Bilirubin Negative Urine Urobilinogen 0.2 Ur Leukocyte Esterase Negative Opiates Screen Methadone Screen Barbiturate Screen Phencyclidine Screen Ur Amphetamines Screen MDMA (Ecstasy) Screen Benzodiazepines Screen Cocaine Screen U Marijuana (THC) Screen RPR Titer Blood Type O POSITIVE Antibody Screen Negative 06/16/19 06/17/19 06/17/19 15:50 06:13 06:13 WBC 11.4 H RBC 4.78 Hgb 14.6 Hct 42.0 MCV 87.7 MCH 30.6 MCHC 34.9 RDW 14.0 Plt Count 309 MPV 7.7 Absolute Neuts (auto) 8.8 H Neutrophils % 76.9 Lymphocytes % 11.3 D Monocytes % 9.2 Eosinophils % 1.7 Basophils % 0.9 Nucleated RBC % 0 ESR PT with INR 12.00 INR 1.02 PTT (Actin FS) 31.1 Sodium Potassium Chloride Carbon Dioxide Anion Gap BUN Creatinine Est GFR (CKD-EPI)AfAm Est GFR (CKD-EPI)NonAf POC Glucometer Random Glucose Hemoglobin A1c % Calcium Phosphorus Magnesium Total Bilirubin AST ALT Alkaline Phosphatase Creatine Kinase Creatine Kinase Index CK-MB (CK-2) Troponin I B-Natriuretic Peptide Total Protein Albumin Triglycerides Cholesterol Total LDL Cholesterol HDL Cholesterol Urine Color Urine Appearance Urine pH Ur Specific [place] Urine Protein Urine Glucose (UA) Urine Ketones Urine Blood Urine Nitrite Urine Bilirubin Urine Urobilinogen Ur Leukocyte Esterase Opiates Screen Negative Methadone Screen Negative Barbiturate Screen Negative Phencyclidine Screen Negative Ur Amphetamines Screen Negative MDMA (Ecstasy) Screen Negative Benzodiazepines Screen Negative Cocaine Screen Negative U Marijuana (THC) Screen Negative RPR Titer Blood Type Antibody Screen 06/17/19 06/17/19 06/17/19 06:13 06:13 06:13 WBC RBC Hgb Hct MCV MCH MCHC RDW Plt Count MPV Absolute Neuts (auto) Neutrophils % Lymphocytes % Monocytes % Eosinophils % Basophils % Nucleated RBC % ESR 5 PT with INR INR PTT (Actin FS) Sodium 140 Potassium 3.8 Chloride 102 Carbon Dioxide 30 Anion Gap 7 L BUN 23.0 H Creatinine 1.3 Est GFR (CKD-EPI)AfAm 64.52 Est GFR (CKD-EPI)NonAf 55.67 POC Glucometer Random Glucose 97 Hemoglobin A1c % 6.3 Calcium 8.7 Phosphorus 2.6 Magnesium 1.8 Total Bilirubin AST ALT Alkaline Phosphatase Creatine Kinase 417 H Creatine Kinase Index 1.0 CK-MB (CK-2) 4.4 H Troponin I < 0.02 B-Natriuretic Peptide 286.3 H Total Protein Albumin Triglycerides Cholesterol Total LDL Cholesterol HDL Cholesterol Urine Color Urine Appearance Urine pH Ur Specific [place] Urine Protein Urine Glucose (UA) Urine Ketones Urine Blood Urine Nitrite Urine Bilirubin Urine Urobilinogen Ur Leukocyte Esterase Opiates Screen Methadone Screen Barbiturate Screen Phencyclidine Screen Ur Amphetamines Screen MDMA (Ecstasy) Screen Benzodiazepines Screen Cocaine Screen U Marijuana (THC) Screen RPR Titer Blood Type Antibody Screen 06/17/19 06:13 WBC RBC Hgb Hct MCV MCH MCHC RDW Plt Count MPV Absolute Neuts (auto) Neutrophils % Lymphocytes % Monocytes % Eosinophils % Basophils % Nucleated RBC % ESR PT with INR INR PTT (Actin FS) Sodium Potassium Chloride Carbon Dioxide Anion Gap BUN Creatinine Est GFR (CKD-EPI)AfAm Est GFR (CKD-EPI)NonAf POC Glucometer Random Glucose Hemoglobin A1c % Calcium Phosphorus Magnesium Total Bilirubin AST ALT Alkaline Phosphatase Creatine Kinase Creatine Kinase Index CK-MB (CK-2) Troponin I B-Natriuretic Peptide Total Protein Albumin Triglycerides Cholesterol Total LDL Cholesterol HDL Cholesterol Urine Color Urine Appearance Urine pH Ur Specific [place] Urine Protein Urine Glucose (UA) Urine Ketones Urine Blood Urine Nitrite Urine Bilirubin Urine Urobilinogen Ur Leukocyte Esterase Opiates Screen Methadone Screen Barbiturate Screen Phencyclidine Screen Ur Amphetamines Screen MDMA (Ecstasy) Screen Benzodiazepines Screen Cocaine Screen U Marijuana (THC) Screen RPR Titer Nonreactive Blood Type Antibody Screen Active Medications Generic Name Dose Route Start Last Admin Trade Name Freq PRN Reason Stop Dose Admin Apixaban 5 mg 06/17/19 10:00 06/17/19 12:41 Eliquis - PO 5 mg BID JULIETA Administration Aspirin 81 mg 06/17/19 16:18 Ecotrin - PO 06/17/19 16:19 ONCE ONE Sodium Chloride 1,000 mls @ 42 mls/hr 06/16/19 14:15 06/16/19 14:43 Normal Saline - IV 42 mls/hr ASDIR JULIETA Administration Losartan Potassium 100 mg 06/17/19 10:00 06/17/19 11:18 Cozaar - PO 100 mg DAILY JULIETA Administration Metoprolol Succinate 25 mg 06/17/19 10:00 06/17/19 12:41 Toprol Xl - PO 25 mg DAILY JULIETA Administration [id number]-7-Mcfi Ethyl Esters 2 gm 06/16/19 22:00 06/17/19 11:18 Lovaza - PO 2 gm BID JULIETA Administration Tamsulosin HCl 0.4 mg 06/17/19 08:30 06/17/19 11:18 Flomax - PO 0.4 mg DAILY@0830 JULIETA Administration ASSESSMENT/PLAN: Dispo: We will continue to follow the patient. Thank you for this consultative opportunity. ATTENDING PHYSICIAN STATEMENT I saw and evaluated the patient. I reviewed the resident's note and discussed the case with the resident. I agree with the resident's findings and plan as documented. SUBJECTIVE: OBJECTIVE: ASSESSMENT AND PLAN:
--- NOTE | 2019-06-17 13:59 | PN ---
Progress Note (short form) - Note Progress Note: Hematology and oncology follow up Subjective: Patient seen and examined at bedside. no new complaints. no events overnight. Objective: Vital Signs Temperature 98.2 F 06/17/19 14:00 Pulse Rate 74 06/17/19 14:00 Respiratory Rate 20 06/17/19 10:00 Blood Pressure 102/63 06/17/19 14:00 O2 Sat by Pulse Oximetry (%) 99 06/17/19 10:00 PE: Gen: Patient seen sitting OOB to chair. Awake, alert. Lungs: Clear to auscultation b/l down to the bases Heart: regular rate and rhythm, s1, s2 heard. no murmurs, gallops, rubs Abdomen: soft, nontender, nondistended. Bowel sounds heard. Extremities: no peripheral edema CBC, BMP 06/17/19 06:13 06/17/19 06:13 Assessment and plan: The patient is a 69 yo m w/ PMH polycythemia, htn, hx of reported blood clots to his polycythemia, per the chart a history of TIA vs CVA and past need for therapeutic phlebotomy who was admitted for syncopal episode. Hematology consulted for h/o polycythemia w/ clots in the past. #history of polycythemia with blood clots. -No signs/symptoms of thrombosis on this admission -Patient requires thrombophillia workup to better characterize the eitology of the patient's clotting. -thrombophillia workup sent -Monitor cbc daily -monitor for stigmata of thrombosis
--- NOTE | 2019-06-17 14:23 | PN ---
Progress Note, Physician History of Present Illness: events noted Chart reviewed No recurrence of any neurological symptoms overnight cardiac arrhythmia was detected in the form of paroxysmal A. fib. Spoke to cardiology patient to be started on anticoagulation given the recent event. - Current Medication List Current Medications: Active Medications Apixaban (Eliquis -) 5 mg PO BID [facility] Last Admin: 06/17/19 12:41 Dose: 5 mg Aspirin (Ecotrin -) 81 mg PO ONCE ONE Stop: 06/17/19 16:19 Sodium Chloride (Normal Saline -) 1,000 mls @ 42 mls/hr IV ASDIR [facility] Last Admin: 06/16/19 14:43 Dose: 42 mls/hr Losartan Potassium (Cozaar -) 100 mg PO DAILY [facility] Last Admin: 06/17/19 11:18 Dose: 100 mg Metoprolol Succinate (Toprol Xl -) 25 mg PO DAILY [facility] Last Admin: 06/17/19 12:41 Dose: 25 mg [id number]-8-Ftoe Ethyl Esters (Lovaza -) 2 gm PO BID [facility] Last Admin: 06/17/19 11:18 Dose: 2 gm Tamsulosin HCl (Flomax -) 0.4 mg PO DAILY@0830 [facility] Last Admin: 06/17/19 11:18 Dose: 0.4 mg - Objective Vital Signs: Vital Signs Temperature 98.2 F 06/17/19 14:00 Pulse Rate 74 06/17/19 14:00 Respiratory Rate 20 06/17/19 10:00 Blood Pressure 102/63 06/17/19 14:00 O2 Sat by Pulse Oximetry (%) 99 06/17/19 10:00 Constitutional: Yes: Well Nourished Eyes: Yes: WNL HENT: Yes: WNL Neurological: Yes: Alert, Oriented, Babinski negative ...Motor Strength: WNL Labs: CBC, BMP 06/17/19 06:13 06/17/19 06:13 INR, PTT INR 1.02 (0.83-1.09) 06/17/19 06:13 Problem List - Problems (1) Syncope Assessment/Plan: 1. Start anticoagulation. 2. Agree to the beta amryjane. 3. DC aspirin. 4. Follow-up the results of the MRI Code(s): R55 - SYNCOPE AND COLLAPSE Qualifiers: Syncope type: unspecified Qualified Code(s): R55 - Syncope and collapse
--- NOTE | 2019-06-17 14:32 | PN ---
Progress Note, Physician Chief Complaint: patient seen and examined no more syncopal events PAF on tele - Current Medication List Current Medications: Active Medications Apixaban (Eliquis -) 5 mg PO BID [facility] Last Admin: 06/17/19 12:41 Dose: 5 mg Aspirin (Ecotrin -) 81 mg PO ONCE ONE Stop: 06/17/19 16:19 Sodium Chloride (Normal Saline -) 1,000 mls @ 42 mls/hr IV ASDIR [facility] Last Admin: 06/16/19 14:43 Dose: 42 mls/hr Losartan Potassium (Cozaar -) 100 mg PO DAILY [facility] Last Admin: 06/17/19 11:18 Dose: 100 mg Metoprolol Succinate (Toprol Xl -) 25 mg PO DAILY [facility] Last Admin: 06/17/19 12:41 Dose: 25 mg Kfaxl-3-Kipi Ethyl Esters (Lovaza -) 2 gm PO BID [facility] Last Admin: 06/17/19 11:18 Dose: 2 gm Tamsulosin HCl (Flomax -) 0.4 mg PO DAILY@0830 [facility] Last Admin: 06/17/19 11:18 Dose: 0.4 mg - Objective Vital Signs: Vital Signs Temperature 98.2 F 06/17/19 14:00 Pulse Rate 74 06/17/19 14:00 Respiratory Rate 20 06/17/19 10:00 Blood Pressure 102/63 06/17/19 14:00 O2 Sat by Pulse Oximetry (%) 99 06/17/19 10:00 Constitutional: Yes: Calm Cardiovascular: Yes: Regular Rate and Rhythm, S1, S2 Respiratory: Yes: CTA Bilaterally Gastrointestinal: Yes: Normal Bowel Sounds, Soft Neurological: Yes: Alert, Oriented Labs: CBC, BMP 06/17/19 06:13 06/17/19 06:13 INR, PTT INR 1.02 (0.83-1.09) 06/17/19 06:13 Problem List - Problems (1) Syncope Assessment/Plan: telemetry- PAF neurology and cardiology consult noted carotid doppler no stenosis ct head done, MRI pending echo EJ 55-60 % left ventricle systolic function normal renal sono ok lipid panel noted in TG on lovaza Code(s): R55 - SYNCOPE AND COLLAPSE Qualifiers: Syncope type: unspecified Qualified Code(s): R55 - Syncope and collapse (2) Hypertension Assessment/Plan: norvasc cozaar Code(s): I10 - ESSENTIAL (PRIMARY) HYPERTENSION Qualifiers: Hypertension type: unspecified Qualified Code(s): I10 - Essential (primary ) hypertension (3) Polycythemia Assessment/Plan: heme eval dr simons Code(s): D75.1 - SECONDARY POLYCYTHEMIA (4) Paroxysmal atrial fibrillation Assessment/Plan: on metoprolol and eliquis Code(s): I48.0 - PAROXYSMAL ATRIAL FIBRILLATION
[2019-06-17] MEDS ORDERED: ASPIRIN COATED 81 MG TABLET.EC PO ONE (16:18)
[2019-06-17] MEDS: SODIUM CHLORIDE 1,000 ML IV SCH (17:57)
--- NOTE | 2019-06-18 06:51 | PN ---
Progress Note, Physician Chief Complaint: alert and no new complaints Specifically denies CP, dizzines or SOB. TELE: NSR History of Present Illness: awaits brain MR Carotid US w/ no obvious high grade stenosis. Radiologist equivocates as to possible focal narrowing for which a CTA may be helpful. - Current Medication List Current Medications: Active Medications Apixaban (Eliquis -) 5 mg PO BID [facility] Last Admin: 06/17/19 21:40 Dose: 5 mg Sodium Chloride (Normal Saline -) 1,000 mls @ 42 mls/hr IV ASDIR [facility] Last Admin: 06/17/19 17:57 Dose: Not Given Losartan Potassium (Cozaar -) 100 mg PO DAILY [facility] Last Admin: 06/17/19 11:18 Dose: 100 mg Metoprolol Succinate (Toprol Xl -) 25 mg PO DAILY [facility] Last Admin: 06/17/19 12:41 Dose: 25 mg Xzcdg-4-Gwlb Ethyl Esters (Lovaza -) 2 gm PO BID [facility] Last Admin: 06/17/19 21:40 Dose: 2 gm Tamsulosin HCl (Flomax -) 0.4 mg PO DAILY@0830 [facility] Last Admin: 06/17/19 11:18 Dose: 0.4 mg - Objective Vital Signs: Vital Signs Temperature 98 F 06/18/19 05:00 Pulse Rate 57 L 06/18/19 05:00 Respiratory Rate 20 06/18/19 05:00 Blood Pressure 131/86 06/18/19 05:00 O2 Sat by Pulse Oximetry (%) 99 06/17/19 21:00 Constitutional: Yes: No Distress, Calm Eyes: Yes: Conjunctiva Clear Cardiovascular: Yes: Regular Rate and Rhythm Respiratory: Yes: CTA Bilaterally Gastrointestinal: Yes: Soft (NT) Edema: No Peripheral Pulses WNL: Yes Neurological: Yes: Alert, Oriented Labs: INR, PTT INR 1.02 (0.83-1.09) 06/17/19 06:13 Laboratory Tests 06/18/19 06/18/19 05:45 05:45 WBC 7.1 Hgb 13.5 Plt Count 289 Sodium 141 BUN 22.6 H Creatinine 1.3 - ....Imaging EKG: Image Reviewed Assessment/Plan IMP: TIA vs Syncope Prior CVAs PAF Equivocal carotid US read w/ possible focal stenosis REC: 1. F/u brain MRI 2. Cont Eliquis and Toprol. 3. D/c fish oil as this may increase bleeding tendency (especially in combo w/ NOAC) 4. Equivocal carotid read, grossly no severe stenosis. Defer decision re neck CTA to Neuro/ PMD. Would seem unlikely for patient to have multiple sources of CVA (PAF + high grade carotid lesion; no bruit on my exam)
[2019-06-18 06:52] LABS: BASO % 0.5 % (0-2.0); EOS % 3.6 % (0-4.5); HEMATOCRIT 38.7 % (35.4-49); HEMOGLOBIN 13.5 GM/dL (11.7-16.9); LYMPH % 16.4 % (8-40); MCH 30.8 pg (25.7-33.7); MEAN CELL VOLUME 87.9 fl (80-96); MEAN PLT VOLUME 7.5 fl (7.5-11.1); MONO % 10.6 % (3.8-10.2); NEUT % 68.9 % (42.8-82.8); PLATELET COUNT 289 K/MM3 (134-434); RBC 4.41 M/mm3 (4.00-5.60); RDW 14.1 % (11.9-15.9); WHITE BLOOD COUNT 7.1 K/mm3 (4.0-10.0)
[2019-06-18 07:13] LABS: ALBUMIN 3.3 g/dl (3.4-5.0); BILIRUBIN,TOTAL 0.3 mg/dL (0.2-1); BLOOD UREA NITROGEN 22.6 mg/dL (7-18); CALCIUM 8.4 mg/dL (8.5-10.1); CREATININE 1.3 mg/dL (0.55-1.3); POTASSIUM 3.8 mmol/L (3.5-5.1)
[2019-06-18] MEDS: TAMSULOSIN HCL 0.4 MG CAP PO SCH (08:17)
--- NOTE | 2019-06-18 08:43 | PN ---
Progress Note, Physician Chief Complaint: Syncope History of Present Illness: Awaiting MRI brain Seen by Neurology+cardiology - Current Medication List Current Medications: Active Medications Apixaban (Eliquis -) 5 mg PO BID [facility] Last Admin: 06/17/19 21:40 Dose: 5 mg Sodium Chloride (Normal Saline -) 1,000 mls @ 42 mls/hr IV ASDIR [facility] Last Admin: 06/17/19 17:57 Dose: Not Given Losartan Potassium (Cozaar -) 100 mg PO DAILY [facility] Last Admin: 06/17/19 11:18 Dose: 100 mg Metoprolol Succinate (Toprol Xl -) 25 mg PO DAILY [facility] Last Admin: 06/17/19 12:41 Dose: 25 mg Egmtf-6-Nwgg Ethyl Esters (Lovaza -) 2 gm PO BID [facility] Last Admin: 06/17/19 21:40 Dose: 2 gm Tamsulosin HCl (Flomax -) 0.4 mg PO DAILY@0830 [facility] Last Admin: 06/18/19 08:17 Dose: 0.4 mg - Objective Vital Signs: Vital Signs Temperature 98 F 06/18/19 05:00 Pulse Rate 57 L 06/18/19 05:00 Respiratory Rate 20 06/18/19 05:00 Blood Pressure 131/86 06/18/19 05:00 O2 Sat by Pulse Oximetry (%) 99 06/17/19 21:00 Constitutional: Yes: Well Nourished, No Distress, Calm Cardiovascular: Yes: Regular Rate and Rhythm Respiratory: Yes: Regular Gastrointestinal: Yes: WNL Genitourinary: Yes: WNL Musculoskeletal: Yes: WNL Extremities: Yes: WNL Edema: No Peripheral Pulses WNL: Yes Neurological: Yes: Alert, Oriented Psychiatric: Yes: Alert, Oriented Labs: CBC, BMP 06/18/19 05:45 06/18/19 05:45 INR, PTT INR 1.02 (0.83-1.09) 06/17/19 06:13 Assessment/Plan (1) Syncope Assessment/Plan: -telemetry- PAF -neurology and cardiology consult noted -carotid doppler no stenosis -CT head negative, MRI pending -echo EJ 55-60 % left ventricle systolic function normal -renal U/S negative Code(s): R55 - SYNCOPE AND COLLAPSE Qualifiers: Syncope type: unspecified Qualified Code(s): R55 - Syncope and collapse (2) Hypertension Assessment/Plan: -norvasc -cozaar Code(s): I10 - ESSENTIAL (PRIMARY) HYPERTENSION Qualifiers: Hypertension type: unspecified Qualified Code(s): I10 - Essential (primary ) hypertension (3) Polycythemia Assessment/Plan: -hematology consult eval -No signs/symptoms of thrombosis on this admission -Patient requires thrombophillia workup to better characterize the eitology of the patient's clotting. -thrombophillia workup sent -Monitor cbc daily Code(s): D75.1 - SECONDARY POLYCYTHEMIA (4) Paroxysmal atrial fibrillation Assessment/Plan: -Chronic -Rate controlled -on metoprolol and eliquis Code(s): I48.0 - PAROXYSMAL ATRIAL FIBRILLATION
--- NOTE | 2019-06-18 10:03 | EKG ---
Test Reason : Blood Pressure : / mmHG Vent. Rate : 066 BPM Atrial Rate : 066 BPM P-R Int : 216 ms QRS Dur : 104 ms QT Int : 380 ms P-R-T Axes : 061 049 -57 degrees QTc Int : 398 ms POOR DATA QUALITY, INTERPRETATION MAY BE ADVERSELY AFFECTED SINUS RHYTHM WITH 1ST DEGREE A-V BLOCK NONSPECIFIC ST ABNORMALITY ABNORMAL ECG Confirmed by VANCE NUNEZ MD ([id number]) on 06/18/2019 10:03:07 AM Referred By: Confirmed By:VANCE NUNEZ MD
[2019-06-18] MEDS: LOSARTAN POTASSIUM 50 MG TABLET (FP) PO SCH (10:35)
[2019-06-18] MEDS: APIXABAN 5 MG TABLET PO SCH ×2 (10:35→21:44)
[2019-06-18] MEDS: metoPROLOL SUCCINATE 25 MG TAB.SR.24H (FP) PO SCH (10:36)
[2019-06-18] MEDS: OMEGA-3 ACID ETHYL ESTERS (FATTY-ACIDS) 1 GM CAPSULE (FP) PO SCH (11:40)
--- NOTE | 2019-06-18 12:09 | PN ---
Progress Note, Physician History of Present Illness: events noted Chart reviewed Still on telemetry Tolerating the anticoagulation No report of any blurry vision double vision no nausea no vomiting - Current Medication List Current Medications: Active Medications Apixaban (Eliquis -) 5 mg PO BID [facility] Last Admin: 06/18/19 10:35 Dose: 5 mg Sodium Chloride (Normal Saline -) 1,000 mls @ 42 mls/hr IV ASDIR [facility] Last Admin: 06/17/19 17:57 Dose: Not Given Losartan Potassium (Cozaar -) 100 mg PO DAILY [facility] Last Admin: 06/18/19 10:35 Dose: 100 mg Metoprolol Succinate (Toprol Xl -) 25 mg PO DAILY [facility] Last Admin: 06/18/19 10:36 Dose: 25 mg Tamsulosin HCl (Flomax -) 0.4 mg PO DAILY@0830 [facility] Last Admin: 06/18/19 08:17 Dose: 0.4 mg - Objective Vital Signs: Vital Signs Temperature 98.9 F 06/18/19 09:00 Pulse Rate 67 06/18/19 09:00 Respiratory Rate 20 06/18/19 09:00 Blood Pressure 125/81 06/18/19 09:00 O2 Sat by Pulse Oximetry (%) 99 06/18/19 09:00 Constitutional: Yes: Well Nourished Eyes: Yes: WNL Neurological: Yes: Alert, Oriented, Babinski negative ...Motor Strength: WNL Labs: CBC, BMP 06/18/19 05:45 06/18/19 05:45 INR, PTT INR 1.02 (0.83-1.09) 06/17/19 06:13 Problem List - Problems (1) Syncope Assessment/Plan: ontinue and evaluation. Continue beta maryjane. Continue statin. follow-up the results of the MRI today Code(s): R55 - SYNCOPE AND COLLAPSE Qualifiers: Syncope type: unspecified Qualified Code(s): R55 - Syncope and collapse
[2019-06-18] MEDS: SODIUM CHLORIDE 1,000 ML IV SCH (19:51)
[2019-06-19] MEDS: TAMSULOSIN HCL 0.4 MG CAP PO SCH (08:16)
[2019-06-19] MEDS: metoPROLOL SUCCINATE 25 MG TAB.SR.24H (FP) PO SCH (09:05)
[2019-06-19] MEDS: LOSARTAN POTASSIUM 50 MG TABLET (FP) PO SCH (09:05)
[2019-06-19] MEDS: APIXABAN 5 MG TABLET PO SCH ×2 (09:05→22:25)
--- NOTE | 2019-06-19 09:21 | PN ---
Progress Note, Physician Chief Complaint: No new complaints TELE: NSR, 3 beats NSVT No CP, SOB, palps. History of Present Illness: BP very well controlled. - Current Medication List Current Medications: Active Medications Apixaban (Eliquis -) 5 mg PO BID [facility] Last Admin: 06/19/19 09:05 Dose: 5 mg Sodium Chloride (Normal Saline -) 1,000 mls @ 42 mls/hr IV ASDIR [facility] Last Admin: 06/18/19 19:51 Dose: Not Given Losartan Potassium (Cozaar -) 100 mg PO DAILY [facility] Last Admin: 06/19/19 09:05 Dose: 100 mg Metoprolol Succinate (Toprol Xl -) 25 mg PO DAILY [facility] Last Admin: 06/19/19 09:05 Dose: 25 mg Tamsulosin HCl (Flomax -) 0.4 mg PO DAILY@0830 [facility] Last Admin: 06/19/19 08:16 Dose: 0.4 mg - Objective Vital Signs: Vital Signs Temperature 97.6 F 06/19/19 08:14 Pulse Rate 75 06/19/19 08:14 Respiratory Rate 18 06/19/19 08:14 Blood Pressure 131/79 06/19/19 08:14 O2 Sat by Pulse Oximetry (%) 98 06/19/19 08:10 Constitutional: Yes: No Distress, Calm Eyes: Yes: Conjunctiva Clear, EOM Intact Cardiovascular: Yes: Regular Rate and Rhythm Respiratory: Yes: CTA Bilaterally Gastrointestinal: Yes: Soft Edema: No Neurological: Yes: Alert, Oriented ...Motor Strength: WNL Labs: CBC, BMP 06/18/19 05:45 06/18/19 05:45 INR, PTT INR 1.02 (0.83-1.09) 06/17/19 06:13 - ....Imaging EKG: Image Reviewed Assessment/Plan IMP: TIA vs Syncope Prior CVAs PAF Equivocal carotid US read w/ possible focal stenosis REC: 1. F/u brain MRI 2. Cont Eliquis and Toprol. 3. Equivocal carotid read, grossly no severe stenosis. Defer decision re neck CTA to Neuro/ PMD. Would seem unlikely for patient to have multiple sources of CVA (PAF + high grade carotid lesion; no bruit on my exam) 4. NSVT: 3 beats, very short self limited run. Normal LVEF. Cont BB, check lytes and keep Mg2+ and K+ (>2 and >4 respectively).
--- NOTE | 2019-06-19 11:03 | PN ---
Progress Note, Physician Chief Complaint: Syncope History of Present Illness: Still awaiting MRI brain ordered 2 days ago Seen by Neurology+cardiology - Current Medication List Current Medications: Active Medications Apixaban (Eliquis -) 5 mg PO BID [facility] Last Admin: 06/19/19 09:05 Dose: 5 mg Sodium Chloride (Normal Saline -) 1,000 mls @ 42 mls/hr IV ASDIR [facility] Last Admin: 06/18/19 19:51 Dose: Not Given Losartan Potassium (Cozaar -) 100 mg PO DAILY [facility] Last Admin: 06/19/19 09:05 Dose: 100 mg Metoprolol Succinate (Toprol Xl -) 25 mg PO DAILY [facility] Last Admin: 06/19/19 09:05 Dose: 25 mg Tamsulosin HCl (Flomax -) 0.4 mg PO DAILY@0830 [facility] Last Admin: 06/19/19 08:16 Dose: 0.4 mg - Objective Vital Signs: Vital Signs Temperature 97.6 F 06/19/19 08:14 Pulse Rate 75 06/19/19 08:14 Respiratory Rate 18 06/19/19 08:14 Blood Pressure 131/79 06/19/19 08:14 O2 Sat by Pulse Oximetry (%) 98 06/19/19 08:10 Constitutional: Yes: Well Nourished, No Distress, Calm Cardiovascular: Yes: Regular Rate and Rhythm Respiratory: Yes: Regular Gastrointestinal: Yes: Normal Bowel Sounds, Soft Musculoskeletal: Yes: WNL Extremities: Yes: WNL Edema: No Peripheral Pulses WNL: Yes Neurological: Yes: Alert, Oriented Psychiatric: Yes: Alert, Oriented Labs: CBC, BMP 06/18/19 05:45 06/18/19 05:45 INR, PTT INR 1.02 (0.83-1.09) 06/17/19 06:13 Assessment/Plan (1) Syncope Assessment/Plan: -telemetry- PAF -neurology and cardiology consult noted -carotid doppler no stenosis -CT head negative, MRI pending -echo EJ 55-60 % left ventricle systolic function normal -renal U/S negative Code(s): R55 - SYNCOPE AND COLLAPSE Qualifiers: Syncope type: unspecified Qualified Code(s): R55 - Syncope and collapse (2) Hypertension Assessment/Plan: -norvas -cozafl Code(s): I10 - ESSENTIAL (PRIMARY) HYPERTENSION Qualifiers: Hypertension type: unspecified Qualified Code(s): I10 - Essential (primary ) hypertension (3) Polycythemia Assessment/Plan: -hematology consult eval -No signs/symptoms of thrombosis on this admission -Patient requires thrombophillia workup to better characterize the eitology of the patient's clotting. -thrombophillia workup sent -Monitor cbc daily Code(s): D75.1 - SECONDARY POLYCYTHEMIA (4) Paroxysmal atrial fibrillation Assessment/Plan: -Chronic -Rate controlled -on metoprolol and eliquis Code(s): I48.0 - PAROXYSMAL ATRIAL FIBRILLATION
[2019-06-19] MEDS: SODIUM CHLORIDE 1,000 ML IV SCH (22:24)
[2019-06-20] MEDS: TAMSULOSIN HCL 0.4 MG CAP PO SCH (08:46)
--- NOTE | 2019-06-20 09:24 | PN ---
Progress Note, Physician - Current Medication List Current Medications: Active Medications Apixaban (Eliquis -) 5 mg PO BID [facility] Last Admin: 06/19/19 22:25 Dose: 5 mg Sodium Chloride (Normal Saline -) 1,000 mls @ 42 mls/hr IV ASDIR [facility] Last Admin: 06/19/19 22:24 Dose: Not Given Losartan Potassium (Cozaar -) 100 mg PO DAILY [facility] Last Admin: 06/19/19 09:05 Dose: 100 mg Metoprolol Succinate (Toprol Xl -) 25 mg PO DAILY [facility] Last Admin: 06/19/19 09:05 Dose: 25 mg Tamsulosin HCl (Flomax -) 0.4 mg PO DAILY@0830 [facility] Last Admin: 06/20/19 08:46 Dose: 0.4 mg - Objective Vital Signs: Vital Signs Temperature 98.0 F 06/20/19 07:00 Pulse Rate 82 06/20/19 07:00 Respiratory Rate 20 06/20/19 08:52 Blood Pressure 145/92 06/20/19 07:00 O2 Sat by Pulse Oximetry (%) 100 06/20/19 08:52 Labs: CBC, BMP 06/18/19 05:45 06/18/19 05:45 INR, PTT INR 1.02 (0.83-1.09) 06/17/19 06:13 Assessment/Plan IMP: TIA vs Syncope Prior CVAs PAF Equivocal carotid US read w/ possible focal stenosis REC: 1. F/u brain MRI 2. Cont Eliquis and Toprol. 3. R CCA with PSV 170s, ? > 50% stenosis, velocity is not impressive--rec neuro input re: whether this may explain her clinical presentation +/- vascular eval ( d/w'd dr melton who will arrange) 4. NSVT: 3 beats, very short self limited run. Normal LVEF. Cont BB, check lytes and keep Mg2+ and K+ (>2 and >4 respectively). 5. BP mostly controlled. same meds, observe
[2019-06-20] MEDS: LOSARTAN POTASSIUM 50 MG TABLET (FP) PO SCH (09:35)
[2019-06-20] MEDS: metoPROLOL SUCCINATE 25 MG TAB.SR.24H (FP) PO SCH (09:36)
[2019-06-20] MEDS: APIXABAN 5 MG TABLET PO SCH (09:36)
--- NOTE | 2019-06-20 11:54 | PN ---
Progress Note, Physician History of Present Illness: yissel noted that chart review 100 no recurrence of the symptoms on the telemetry Patient is tolerating the combination of the beta maryjane in the anticoagulant very well. MRI of the brain noted with no acute stroke. Carotid Doppler results noted - Current Medication List Current Medications: Active Medications Apixaban (Eliquis -) 5 mg PO BID [facility] Last Admin: 06/20/19 09:36 Dose: 5 mg Sodium Chloride (Normal Saline -) 1,000 mls @ 42 mls/hr IV ASDIR [facility] Last Admin: 06/19/19 22:24 Dose: Not Given Losartan Potassium (Cozaar -) 100 mg PO DAILY [facility] Last Admin: 06/20/19 09:35 Dose: 100 mg Metoprolol Succinate (Toprol Xl -) 25 mg PO DAILY [facility] Last Admin: 06/20/19 09:36 Dose: 25 mg Tamsulosin HCl (Flomax -) 0.4 mg PO DAILY@0830 [facility] Last Admin: 06/20/19 08:46 Dose: 0.4 mg - Objective Vital Signs: Vital Signs Temperature 98.0 F 06/20/19 07:00 Pulse Rate 82 06/20/19 07:00 Respiratory Rate 20 06/20/19 08:52 Blood Pressure 145/92 06/20/19 07:00 O2 Sat by Pulse Oximetry (%) 100 06/20/19 08:52 Constitutional: Yes: Well Nourished Eyes: Yes: WNL HENT: Yes: WNL Neurological: Yes: Alert, Oriented, Babinski negative ...Motor Strength: WNL Labs: CBC, BMP 06/18/19 05:45 06/18/19 05:45 INR, PTT INR 1.02 (0.83-1.09) 06/17/19 06:13 Problem List - Problems (1) Syncope Assessment/Plan: transient ischemic attack. Cardiac arrhythmia Atrial fibrillation Carotid stenosis 1. Aggressive medical treatment/medical management for the carotid stenosis 2. Do not recommend vascular intervention at this point. 3. Repeat the carotid Doppler in 3 months. 4. Follow-up with cardiology as an outpatient. 5. Continue elliqus the same. . Discharge planning with visiting nurse service. Continue the beta maryjane Code(s): R55 - SYNCOPE AND COLLAPSE Qualifiers: Syncope type: unspecified Qualified Code(s): R55 - Syncope and collapse
--- NOTE | 2019-06-20 12:59 | PN ---
Progress Note (short form) - Note Progress Note: Vascular Surgery Cartotid doppler images reviewed. All PSV/EDV velocities within normal limits. No significant stenosis. No need for any surgery . Medical management. Emilio Ramos DO
--- NOTE | 2019-06-20 13:12 | DS ---
Physical Examination Vital Signs: Vital Signs Temperature 98.0 F 06/20/19 07:00 Pulse Rate 82 06/20/19 07:00 Respiratory Rate 20 06/20/19 08:52 Blood Pressure 145/92 06/20/19 07:00 O2 Sat by Pulse Oximetry (%) 100 06/20/19 08:52 Constitutional: Yes: Calm Cardiovascular: Yes: Regular Rate and Rhythm, S1, S2 Respiratory: Yes: CTA Bilaterally Gastrointestinal: Yes: Normal Bowel Sounds, Soft Neurological: Yes: Alert Labs: CBC, BMP 06/18/19 05:45 06/18/19 05:45 Discharge Summary Problems reviewed: Yes Reason For Visit: POLYCYTHEMIA Current Active Problems Confusion (Acute) Hypertension (Acute) Paroxysmal atrial fibrillation (Acute) Syncope (Acute) Other Procedures: carotid doppler. brain MRI no acute changes. echo ejection fraction 55-60% left ventricle systolic function Hospital Course: 67y M hx of polycythemia, htn, hx of reported blood clots to his polycythemia, per the chart a history of TIA vs CVA and past need for therapeutic phlebotomy for polycythemia symptoms who presents from Dr. Rafy Mir's office for evaluation of a witnessed syncopal episode and disorientation to time. On arrival the pt reported having a POSADA and pressure to the charge nurse. the pateint said he got very emotional and upset at the doctors office earlier today and then had a sycopal episode while sitting in chair no head trauma no chest pain no palpitations admitted to telemetry echo ,carotid doppler and echo done- repeat carotid doppler in 3 months seen by vascular no acute intervention needed at this time MRI of brain done as well seen by neurology and cardiology new onset of Paroxysmal afib on toprol and eliquis Condition: Improved - Instructions Referrals: Akash Ying MD [Staff Physician] - - Home Medications Comprehensive Discharge Medication List: Ambulatory Orders Losartan Potassium [Cozaar -] 100 mg PO DAILY #14 tablet 03/23/15 Butterfield-3 Fatty Acids [Butterfield-3] 1,000 mg PO DAILY 04/29/17 Acetaminophen [Tylenol .Regular Strength -] 650 mg PO Q6H PRN #0 tablet Amlodipine Besylate [Norvasc -] 10 mg PO DAILY #30 tablet 05/03/17 Aspirin Coated [Ecotrin -] 81 mg PO DAILY #30 tablet 05/03/17 Clonidine Patch [Catapres Tts Patch -] 0.3 mg TD WEEKLY #1 box 05/03/17 Hctz 25Mg/Triamterene [Dyazide .5 -] 1 cap PO DAILY #20 tablet 05/03/17 Ibuprofen [Motrin -] 600 mg PO TID #30 tablet 05/09/18 Donepezil HCl [Aricept] 5 mg PO DAILY 06/16/19 Tamsulosin HCl [Flomax] 0.4 mg PO DAILY 06/16/19 Tamsulosin HCl [Flomax] 0.4 mg PO DAILY 06/16/19 Zolpidem Tartrate [Ambien] 10 mg PO HS 06/16/19
--- NOTE | 2019-06-20 13:51 | PN ---
Progress Note, Physician History of Present Illness: Pt seen and examined at bedside. He denies dysuria or hematuria. He is awake and alert. He says that he does get anxious at times and he feels that worsens his blood pressure. - Current Medication List Current Medications: Active Medications Apixaban (Eliquis -) 5 mg PO BID [facility] Last Admin: 06/20/19 09:36 Dose: 5 mg Sodium Chloride (Normal Saline -) 1,000 mls @ 42 mls/hr IV ASDIR [facility] Last Admin: 06/19/19 22:24 Dose: Not Given Losartan Potassium (Cozaar -) 100 mg PO DAILY [facility] Last Admin: 06/20/19 09:35 Dose: 100 mg Metoprolol Succinate (Toprol Xl -) 25 mg PO DAILY [facility] Last Admin: 06/20/19 09:36 Dose: 25 mg Tamsulosin HCl (Flomax -) 0.4 mg PO DAILY@0830 [facility] Last Admin: 06/20/19 08:46 Dose: 0.4 mg - Objective Vital Signs: Vital Signs Temperature 98.0 F 06/20/19 07:00 Pulse Rate 82 06/20/19 07:00 Respiratory Rate 20 06/20/19 08:52 Blood Pressure 145/92 06/20/19 07:00 O2 Sat by Pulse Oximetry (%) 100 06/20/19 08:52 Constitutional: Yes: Calm Eyes: Yes: Conjunctiva Clear HENT: Yes: Atraumatic Neck: Yes: Supple Cardiovascular: Yes: S1, S2 Respiratory: Yes: CTA Bilaterally Gastrointestinal: Yes: Soft Genitourinary: Yes: WNL Musculoskeletal: Yes: WNL Edema: No Neurological: Yes: Oriented Psychiatric: Yes: Oriented Labs: CBC, BMP 06/18/19 05:45 06/18/19 05:45 INR, PTT INR 1.02 (0.83-1.09) 06/17/19 06:13 Problem List - Problems (1) Syncope Code(s): R55 - SYNCOPE AND COLLAPSE Qualifiers: Syncope type: unspecified Qualified Code(s): R55 - Syncope and collapse Assessment/Plan Current Medications Generic Name Dose Route Start Last Admin Trade Name Freq PRN Reason Stop Dose Admin Apixaban 5 mg 06/17/19 10:00 06/20/19 09:36 Eliquis - PO 5 mg BID JULIETA Administration Sodium Chloride 1,000 mls @ 42 mls/hr 06/16/19 14:15 06/19/19 22:24 Normal Saline - IV Not Given ASDIR JULIETA Losartan Potassium 100 mg 06/17/19 10:00 06/20/19 09:35 Cozaar - PO 100 mg DAILY [facility] Administration Metoprolol Succinate 25 mg 06/17/19 10:00 06/20/19 09:36 Toprol Xl - PO 25 mg DAILY [facility] Administration Tamsulosin HCl 0.4 mg 06/17/19 08:30 06/20/19 08:46 Flomax - PO 0.4 mg DAILY@0830 JULIETA Administration Impression 1. HTN 2. polycythemia 3. hx of CVA 4. dyspnea 5. chest pain 6. chronic testonerone supplementation 7. HEATHER 8. syncope 9. p- a-fib Plan - please d/c fluids - montor bp - mri brain negative for cva - outpt follow up
[2019-06-20 14:13] VITALS: BP 125/74; PULSE 85; TEMP 98.2
[2019-06-21 12:07] LABS: PROTEIN S, FREE 122 % (57-157)
[2019-06-21 13:07] LABS: ANTITHROMBIN ACTIVITY 112 % (75-135)
== END 2019-06-20 17:02 | disposition home health service (06) | DRG 312 ==
LOC: JER 14:03 → JERBED 15:36 → OBSVTOIN 16:02 → J4W 16:35
PROVIDERS: ADMIT Student in an Organized Health Care Education/Training Program; ATTEND Student in an Organized Health Care Education/Training Program
DX: R55 Syncope and collapse (principal); D75.1 Secondary polycythemia; I10 Essential (primary) hypertension; R07.89 Other chest pain; G47.33 Obstructive sleep apnea (adult) (pediatric); Z86.73 Personal history of transient ischemic attack (TIA), and cerebral infarction without residual deficits; F41.9 Anxiety disorder, unspecified; I44.0 Atrioventricular block, first degree; I48.0 Paroxysmal atrial fibrillation
CPT/HCPCS: 36415; 70450-TC; 70551-TC; 71045-TC-FY; 76775-TC; 80048; 80053; 80307; 81003; 81240; 81241; 82465; 82550; 82553; 82962; 83036; 83718; 83721; 83735; 83880; 84100; 84478; 84484; 85025; 85027; 85300; 85303; 85305; 85306; 85610; 85613; 85651; 85730; 85732; 86593; 86850; 86900; 86901; 93005; 93010; 93306-TC; 93880-TC; 97116-GP; 97161-GP; 99285-25; G0378; J7030; Q2036

== ENCOUNTER 2019-08-05 18:57 | Inpatient (IN) | payer OTHER ==
[2019-08-05] MEDS ORDERED: SODIUM CHLORIDE 1,000 ML IV SCH (19:30)
[2019-08-05] MEDS ORDERED: METOPROLOL TARTRATE 25 MG TABLET (FP) PO ONE (19:57)
[2019-08-05 20:06] LABS: BASO % 0.6 % (0-2.0); EOS % 1.4 % (0-4.5); HEMATOCRIT 45.6 % (35.4-49); HEMOGLOBIN 15.4 GM/dL (11.7-16.9); LYMPH % 16.8 % (8-40); MCH 30.1 pg (25.7-33.7); MCHC 33.8 g/dl (32.0-35.9); MEAN CELL VOLUME 88.9 fl (80-96); MONO % 11.9 % (3.8-10.2); NEUT % 69.3 % (42.8-82.8); PLATELET COUNT 292 K/MM3 (134-434); RBC 5.13 M/mm3 (4.00-5.60); RDW 14.7 % (11.9-15.9); WHITE BLOOD COUNT 8.2 K/mm3 (4.0-10.0)
[2019-08-05] MEDS ORDERED: ACETAMINOPHEN 1000 MG/100 ML VIAL (NON FORMULARY) IVPB ONE (20:06)
--- NOTE | 2019-08-05 20:06 | PDOC ---
Documentation entered by Arielle Joyce SCRIBE, acting as scribe for Ana Paula Ricci MD. Ana Paula Ricci MD: This documentation has been prepared by the Isiah condon Nirvannie, SCRIBE, under my direction and personally reviewed by me in its entirety. I confirm that the documentation accurately reflects all work, treatment, procedures, and medical decision making performed by me. History of Present Illness - General Chief Complaint: CVA/TIA Stated Complaint: CVA Time Seen by Provider: 08/05/19 19:31 History Source: Patient Exam Limitations: No Limitations - History of Present Illness Initial Comments: 08/05/19 20:16 [id number] with significant past medical history of polycythemia, HTN (noncompliant with medications), hx of reported blood clots to his polycythemia, paroxysmal Afib (on Eliquis), dementia, BPH, CVA/TIA, and recent admission to [facility] for syncope (11-21-06) who presents to the ED s/p episode of syncope and disorientation. As per patient, he was in his apartment and at approximately 4: 30pm he began to feel unsteady and disoriented subsequently falling. Upon waking up, he endorses decrease in vision described as foggy, pressure-like headache, slurred speech, and generalized confusion. Patient notes checking his blood pressure and obtaining a level of 205/135 mmHg then going up to his son to whom called for EMS. He endorses similar episodes in the past at which time he has been admitted Patient is unaware if he felt any weakness, numbness, or tingling. Patient endorses to be a poor historian and notes a history of comprehensional delay for the past 6 months which he has not followed up with neurology. He denies tinnitus. Denies fever, chills, chest pain, SOB, palpitations, dizziness, weakness, N, V, D, abdominal pain, bladder and bowel problems, leg swelling, No sick contacts or travel. Allergies: None Past Medical History: Polycythemia, HTN (noncompliant with medications), hx of reported blood clots to his polycythemia, paroxysmal Afib (on Eliquis), dementia , BPH, and CVA/TIA Social history: Lives with family. No tobacco, ETOH or drug use. Surgical history: None reported. Meds: Metoprolol, Donepezil, Zolpidem, Losartan, Eliquis, Tamosulin. PMD: Dr. Ying Past History 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 History Allergies/Adverse Reactions: Allergies Allergy/AdvReac Type Severity Reaction Status Date / Time No Known Drug Allergies Allergy Verified 08/05/19 19:38 Home Medications: Ambulatory Orders Donepezil HCl [Aricept] 5 mg PO DAILY 06/16/19 Tamsulosin HCl [Flomax -] 0.4 mg PO DAILY 06/16/19 Apixaban [Eliquis -] 5 mg PO BID #30 tablet 06/20/19 Losartan Potassium [Cozaar -] 100 mg PO DAILY #60 tablet 06/20/19 Metoprolol Succinate [Toprol XL -] 25 mg PO DAILY #30 tab.sr.24h 06/20/19 Zolpidem Tartrate 10 mg PO HS 08/05/19 CVA: Yes (TIA-2007, SHORT TERM PROBLEMS) COPD: No HTN: Yes (Polycythemia) - Surgical History Abdominal Surgery: Yes (HERNIA REPAIR) Orthopedic Surgery: Yes (SHOULDER SX) - Psycho Social/Smoking Cessation Hx Smoking History: Former smoker Have you smoked in the past 12 months: No Information on smoking cessation initiated: No Hx Alcohol Use: No Drug/Substance Use Hx: No Substance Use Type: None Hx Substance Use Treatment: No Review of Systems - Review of Systems Able to Perform ROS?: Yes Comments:: 08/05/19 20:17 Constitutional: no fevers or chills. HEENT: no dizziness. No congestion. No visual/hearing disturbances. CVS: no cp or syncope. Resp: no sob. No cough. Gastrointestinal: no abdominal pain, nausea or vomiting. Genitourinary: no urinary sx, hematuria. MUSCULOSKELETAL: No joint pain and swelling. No neck or back pain. SKIN: no redness or skin changes, no discharge, no rash. No wounds. Hematologic: no easy bruising/bleeding. NEUROLOGIC: +Syncope. +Headache. +Disorientation. +Slurred speech. No weakness, numbness or tingling. Psych: no anxiety or depression Allergic/Immunologic: no allergies All other systems reviewed and negative, or as documented in HPI. *Physical Exam - Vital Signs Last Vital Signs Temp Pulse Resp BP Pulse Ox 97.9 F 59 L 17 188/114 H 95 08/05/19 19:00 08/05/19 19:00 08/05/19 19:00 08/05/19 19:00 08/05/19 19:00 - Physical Exam Comments: 08/05/19 20:18 General: Well appearing, awake and alert, NAD. HEENT: NCAT, PERRL, EOMI, clear conjunctiva, anicteric, moist mucous membranes , clear oropharynx, no oral lesions.. Neck: neck supple, FROM Resp: CTAB, normal and even respirations, no respiratory distress CVS: RRR, no murmurs, 2+ peripheral pulses throughout, no peripheral edema Abdomen: soft, NTND, no rebound or guarding. No CVAT. Back: nontender, normal inspection and ROM MSK: no edema, ALMAZAN x4, ROM intact. No clubbing or cyanosis. normal bulk and tone. Extremities: no calf tenderness Neuro: Alert, oriented to person time and place. No carotid bruit, CN II-XII grossly intact. Strength prox and distally 5/5 throughout. Sensation grossly intact to light touch. ALMAZAN x4. No cerebellar signs, no dysmetria, bilateral finger to nose and heel to tam equal and symmetric. Speech clear. Skin: warm and well perfused, cap refill <2 sec, normal color Heart Score/ECG Review #1 ECG reviewed & interpreted by me at: 19:25 General ECG Interpretation: Sinus Rhythm, Normal Intervals, No acute ischemic changes Compared to previous ECG there are: No significant change 08/05/19 20:04 EKG sinus bradycardia 58 bpm, no interval abnormalities, narrow QRS, ST and T wave segments and morphology normal. Nonspecific T wave abnormalities ED Treatment Course - LABORATORY CBC & Chemistry Diagram: 08/05/19 19:35 08/05/19 19:35 Medical Decision Making - Medical Decision Making 08/05/19 20:03 Vital Signs Temp Pulse Resp BP Pulse Ox 97.9 F 59 L 17 188/114 H 95 08/05/19 19:00 08/05/19 19:00 08/05/19 19:00 08/05/19 19:00 08/05/19 19:00 VS reviewed, Hypertensive 188/114. Differential diagnosis includes CVA, hemorrhagic stroke, migraine, tension headache, subarachnoid hemorrhage, aneurysm, carotid/vertebral dissection, hypertensive emergency, hypertensive urgency, endorgan damage, ACS, arrhythmia, electrolyte/metabolic derangements. transient global amnesia. Initial code storm was called, patient was expedited to CT scanner. Multiple chronic supratentorial and infratentorial infarcts are noted similar to prior. No acute hemorrhage or bleed. Patient has had a history of polycythemia, TIA/ CVA, he also has been having progressive memory loss over the last for 5 months and is currently on benazepril and dietary supplements for memory improvement. Patient does not require TPA at this time as he has excluding factors including hypertension with BP greater than 180/110. Resolving symptoms and no focal neurologic deficits, NIH SS is 0 headache, likely from HTN/emergency, will treat with IV tylenol, given metoprolol. labs and lytes wnl. Cr elevated 1.5, slightly elevated. trop neg. EKG unremarkable, unchanged with stable nonspecific T wave abnormalities.] pt unsafe for discharge, as pt lives alone, second episode. repeat VS improving, BP downtrending. admit medical service, tele, r/o CVA/TIA, syncope/htn emergency admitting to overnight hospitalist, s/o to [employer] Marbella Mock. 08/05/19 20:08 08/05/19 20:10 08/05/19 20:58 08/05/19 21:53 Discharge - Discharge Information Problems reviewed: Yes Clinical Impression/Diagnosis: Headache, Syncope, Hypertensive emergency Condition: Fair - Admission Yes - Follow up/Referral Referrals: Akash Ying MD [Primary Care Provider] - - Patient Discharge Instructions - Post Discharge Activity tPA Exclusion checklist 3-4.5h - Time Elapsed Date last known well: 08/05/19 Time last known well: 16:30 Elaspsed time: Day(s) and 5 Hour(s) and 22 Minutes - Thrombolytic Therapy Candidate Is patient eligible for thrombolytic therapy: No - Exclusion Criteria 3-4.5 hr SBP greater than 185 or DBP greater than 110mmHg despite tx: Yes Recent IC/spinal surgery,head trauma or stroke<3mos.: No Hx IC hemorrhage, IC neoplasm, AV malformation or aneurysm: No Active internal bleeding: No Blding diathesis(low plt ct, inc PTT,INR>1.7 or use of NOAC): No Symptoms suggest subarachnoid hemorrhage: No CT demonstrates multilobar infarct(>1/3 cerebral hemiphere): No Arterial puncture at noncompressible site in previous 7 days: No Blood glucose concentration less than 50mg/dL (2.7mmol/L): No - Relative Exclusion Criteria 3-4.5 hr Life expectancy <1 yr or severe co-morbid illness: No : No Patient/family refused: No Rapid improvement: Yes Stroke severity too mild: Yes Recent acute UT (w/in previous 3 months): No Seizure at onset with postictal residual neuro impairments: No Major surgery or serious trauma w/in previous 14 days: No Recent GI or hemorrhage (w/in previous 21 days): No - Add'l Relative Exclusion 3-4.5 hr Age > 80: No Hx of both diabetes AND prior ischemic stroke: Yes Taking an oral anticoagulant regardless of INR: No NIHSS >25: No - Ineligibility reason(s) Reasons No tPA given: See reason(s) noted above NIH Stroke Scale - Last Known Well Date/Time & Onset Date Last Known Well: 08/05/19 Time Last Known Well: 16:30 - Initial Evaluation Level of consciousness: Alert Ask patient the month and their age: Answers both correctly Ask patient to open & close eyes; make fist and let go: Obeys both correctly Best gaze (horizontal eye movement): Normal Visual field testing: No visual field loss Facial paresis (Show teeth/raise eyebrows/close eyes tight): Normal symmetrical movement Motor Function: Left Arm: Normal Motor Function: Right Arm: Normal (extends arm 90 (or 45) degrees for 10 seconds without drift Motor Function: Left Leg: Normal (extends leg 30 degrees for 5 seconds without drift) Motor Function: Right Leg: Normal (extends leg 30 degrees for 5 seconds without drift) Limb Ataxia: No ataxia Sensory(Use pinprick test arms,legs,trunk,face/side to side): Normal Best language (Describe picture, name items, read sentences): No Aphasia Dysarthria (read several words): Normal articulation Extinction and Inattention: No abnormality - Total Score NIH Stroke Scale Score: 0
[2019-08-05 20:07] LABS: INR 1.05 (0.83-1.09); PROTHROMBIN TIME (PATIENT) 12.4 SEC (9.7-13.0)
[2019-08-05 20:10] LABS: ACTIVATED PTT 38.4 SECONDS (25.2-36.5)
[2019-08-05 20:26] LABS: LDL CHOLESTEROL (ONLY SJRH) 111 mg/dL (5-100); TRIGLYCERIDES 215 mg/dL (0-150)
[2019-08-05 20:30] LABS: ALBUMIN 3.9 g/dl (3.4-5.0); ALK PHOS 94 U/L (45-117); ANION GAP 6 MMOL/L (8-16); BILIRUBIN,TOTAL 0.2 mg/dL (0.2-1); BLOOD UREA NITROGEN 30.7 mg/dL (7-18); CALCIUM 9.1 mg/dL (8.5-10.1); CHLORIDE 103 mmol/L (98-107); CO2 29 mmol/L (21-32); CREATININE 1.5 mg/dL (0.55-1.3); GLUCOSE,RANDOM 87 mg/dL (74-106); HDL CHOLESTEROL 34 mg/dL (40-60); POTASSIUM 3.7 mmol/L (3.5-5.1); SGOT/AST 16 U/L (15-37); SGPT/ALT 29 U/L (13-61); SODIUM 138 mmol/L (136-145); TOT PROT 6.7 g/dl (6.4-8.2)
[2019-08-05] MEDS ORDERED: METOPROLOL TARTRATE 25 MG TABLET (FP) ONE (20:35)
[2019-08-05] MEDS ORDERED: ACETAMINOPHEN INJECTION 100 ML IVPB ONE (20:35)
[2019-08-05 20:44] LABS: CHOLESTEROL 170 mg/dL (50-200)
--- NOTE | 2019-08-05 22:05 | HP ---
Admitting History and Physical - Primary Care Physician PCP: Akash Ying - Admission Chief Complaint: Syncope, Uncontrolled BP History of Present Illness: This is a 69 y/o man with significant past medical history of Polycythemia, HTN (noncompliant with medications), hx of reported blood clots to his polycythemia , paroxysmal Afib (on Eliquis), Dementia, BPH, CVA/TIA, and recent admission to [facility] for Syncope (11-21-06). Who presents to the ED s/p episode of syncope and disorientation. As per patient, he was in his apartment and at approximately 4:30pm he began to feel unsteady and disoriented subsequently falling. Upon waking up, he endorses decrease in vision described as foggy, pressure-like headache, slurred speech, and generalized confusion. Patient notes checking his blood pressure and obtaining a level of 205/135 mmHg then going up to his son to whom called for EMS. He endorses similar episodes in the past at which time he has been admitted Patient is unaware if he felt any weakness, numbness, or tingling. Patient endorses to be a poor historian and notes a history of comprehensional delay for the past 6 months which he has not followed up with neurology. Patient denies tinnitus, fever, chills, dizziness, SOB, CP, palpitations. Patient denies sick contacts or recent travel. 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 Cardiovascular: Yes: HTN Heme/Onc: No: Anemia, B12 Deficiency, Bleeding Disorder, Cancer, Current Chemotherapy, Current Radiation Therapy, Hemochromatosis, Hypercoaguable State, Myeloproliferative Synd, Sickle Cell Disease, Sickle Cell Trait, Thrombocytopenia, Other - Smoking History Smoking history: Former smoker Have you smoked in the past 12 months: No - Alcohol/Substance Use Hx Alcohol Use: No History of Substance Use: reports: None - Social History Usual Living Arrangement: Yes: Alone ADL: Family Assistance History of Recent Travel: No Home Medications - Allergies Allergies/Adverse Reactions: Allergies Allergy/AdvReac Type Severity Reaction Status Date / Time No Known Drug Allergies Allergy Verified 08/05/19 19:38 - Home Medications Home Medications: Ambulatory Orders Donepezil HCl [Aricept] 5 mg PO DAILY 06/16/19 Tamsulosin HCl [Flomax -] 0.4 mg PO DAILY 06/16/19 Apixaban [Eliquis -] 5 mg PO BID #30 tablet 06/20/19 Losartan Potassium [Cozaar -] 100 mg PO DAILY #60 tablet 06/20/19 Metoprolol Succinate [Toprol XL -] 25 mg PO DAILY #30 tab.sr.24h 06/20/19 Zolpidem Tartrate 10 mg PO HS 08/05/19 Family Medical History Family History: Unable to Obtain Review of Systems - Review of Systems Constitutional: reports: No Symptoms Eyes: reports: No Symptoms HENT: reports: No Symptoms Neck: reports: No Symptoms Cardiovascular: reports: No Symptoms Respiratory: reports: No Symptoms Gastrointestinal: reports: No Symptoms Genitourinary: reports: No Symptoms Breasts: reports: No Symptoms Reported Musculoskeletal: reports: No Symptoms Integumentary: reports: No Symptoms Neurological: reports: Syncope Endocrine: reports: No Symptoms Hematology/Lymphatic: reports: No Symptoms Psychiatric: reports: No Symptoms Physical Examination Vital Signs: Vital Signs Temperature 97.9 F 08/05/19 19:00 Pulse Rate 50 L 08/05/19 21:57 Respiratory Rate 18 08/05/19 21:57 Blood Pressure 177/98 H 08/05/19 21:57 O2 Sat by Pulse Oximetry (%) 100 08/05/19 21:57 Constitutional: Yes: Well Nourished, No Distress, Calm Eyes: Yes: WNL, Conjunctiva Clear, EOM Intact, PERRL HENT: Yes: WNL, Atraumatic, Normocephalic Neck: Yes: WNL, Supple, Trachea Midline Cardiovascular: Yes: Tachycardia, S1, S2 Respiratory: Yes: Diminished (bases) Gastrointestinal: Yes: WNL, Normal Bowel Sounds, Soft ...Rectal Exam: Yes: Deferred Renal/: Yes: WNL Breast(s): Yes: WNL Musculoskeletal: Yes: WNL Extremities: Yes: WNL Edema: No Peripheral Pulses WNL: Yes Neurological: Yes: WNL, Alert, Oriented, Cran Nerves II-XII Intact ...Motor Strength: WNL Psychiatric: Yes: WNL, Alert, Oriented Labs: CBC, BMP 08/05/19 19:35 08/05/19 19:35 Laboratory Results - last 24 hr 08/05/19 08/05/19 08/05/19 19:35 19:35 19:35 WBC 8.2 RBC 5.13 Hgb 15.4 Hct 45.6 D MCV 88.9 MCH 30.1 MCHC 33.8 RDW 14.7 Plt Count 292 MPV 8.0 Absolute Neuts (auto) 5.7 Neutrophils % 69.3 Lymphocytes % 16.8 Monocytes % 11.9 H Eosinophils % 1.4 Basophils % 0.6 Nucleated RBC % 0 PT with INR 12.40 INR 1.05 PTT (Actin FS) 38.4 H Sodium 138 Potassium 3.7 Chloride 103 Carbon Dioxide 29 Anion Gap 6 L BUN 30.7 H Creatinine 1.5 H Est GFR (CKD-EPI)AfAm 54.27 Est GFR (CKD-EPI)NonAf 46.83 Random Glucose 87 Calcium 9.1 Total Bilirubin 0.2 AST 16 ALT 29 Alkaline Phosphatase 94 Creatine Kinase 186 Creatine Kinase Index 1.8 CK-MB (CK-2) 3.5 Troponin I < 0.02 Total Protein 6.7 Albumin 3.9 Triglycerides Cholesterol 170 Total LDL Cholesterol HDL Cholesterol 34 L Urine Color Urine Appearance Urine pH Ur Specific [place] Urine Protein Urine Glucose (UA) Urine Ketones Urine Blood Urine Nitrite Urine Bilirubin Urine Urobilinogen Ur Leukocyte Esterase Blood Type Antibody Screen 08/05/19 08/05/19 08/05/19 19:35 19:35 22:07 WBC RBC Hgb Hct MCV MCH MCHC RDW Plt Count MPV Absolute Neuts (auto) Neutrophils % Lymphocytes % Monocytes % Eosinophils % Basophils % Nucleated RBC % PT with INR INR PTT (Actin FS) Sodium Potassium Chloride Carbon Dioxide Anion Gap BUN Creatinine Est GFR (CKD-EPI)AfAm Est GFR (CKD-EPI)NonAf Random Glucose Calcium Total Bilirubin AST ALT Alkaline Phosphatase Creatine Kinase Creatine Kinase Index CK-MB (CK-2) Troponin I Total Protein Albumin Triglycerides 215 H Cholesterol Total LDL Cholesterol 111 H HDL Cholesterol Urine Color Yellow Urine Appearance Clear Urine pH 6.0 D Ur Specific [place] 1.018 Urine Protein Negative Urine Glucose (UA) Negative Urine Ketones Negative Urine Blood Negative Urine Nitrite Negative Urine Bilirubin Negative Urine Urobilinogen 0.2 Ur Leukocyte Esterase Negative Blood Type O POSITIVE Antibody Screen Negative Imaging - Results Cat Scan: Report Reviewed, Image Reviewed EKG: Image Reviewed Problem List - Problems (1) Syncope Assessment/Plan: r/o Arrhythmia vs Uncontrolled HTN Head CT report reviewed Continue cardiac monitoring Serial Enzymes Appreciate Cardiology consult Lipid Panel reviewed Echo 06/16/19- EF 55-60%, lvsf normal, mild-mod septal hypertrophy, trace-mild MR , mild TR Carotid 06/16/19- no evidence of a high grade internal carotid artery stenosis is identified Fall precautions Neuro checks Monitor CBC, BMP Code(s): R55 - SYNCOPE AND COLLAPSE (2) Hypertensive emergency Assessment/Plan: Likely secondary non compliance Code(s): I16.1 - HYPERTENSIVE EMERGENCY (3) Polycythemia Assessment/Plan: Stable Monitor CBC Consider Hematology consult if condition worsens Code(s): D75.1 - SECONDARY POLYCYTHEMIA (4) Paroxysmal atrial fibrillation Assessment/Plan: stable [id number] EKG- reviewed Continue Eliquis Code(s): I48.0 - PAROXYSMAL ATRIAL FIBRILLATION (5) Dementia Assessment/Plan: stable Head CT- reviewed Continue Aricept Code(s): F03.90 - UNSPECIFIED DEMENTIA WITHOUT BEHAVIORAL DISTURBANCE (6) BPH (benign prostatic hyperplasia) Assessment/Plan: Stable Continue Flomax Code(s): N40.0 - BENIGN PROSTATIC HYPERPLASIA WITHOUT LOWER URINRY TRACT SYMP Assessment/Plan This is a 69 y/o man with a PMHx of HTN, Polycythemia, TIA vs CVA. Admitted to Telemetry for Syncope and Hypertensive Emergency for further evaluation of their emergent condition. Plan: See Problem List FEN Replete lytes Low Na Diet Dispo: Requires Inpatient Care Visit type - Emergency Visit Emergency Visit: Yes ED Registration Date: 08/05/19 Care time: The patient presented to the Emergency Department on the above date and was hospitalized for further evaluation of their emergent condition. - New Patient This patient is new to me today: Yes Date on this admission: 08/05/19 - Critical Care Critical Care patient: No
[2019-08-05 22:18] LABS: URINE APPEARANCE CLEAR; URINE BILIRUBIN NEGATIVE (NEGATIVE); URINE COLOR YELLOW; URINE GLUCOSE (UA) NEGATIVE (NEGATIVE); URINE KETONE NEGATIVE (NEGATIVE); URINE LEUK ESTERASE NEGATIVE (NEGATIVE); URINE NITRITE NEGATIVE (NEGATIVE); URINE PROTEIN NEGATIVE (NEGATIVE); URINE UROBILINOGEN 0.2 mg/dL (0.2-1.0)
[2019-08-05] MEDS ORDERED: APIXABAN 5 MG TABLET ONE (22:27)
[2019-08-05] MEDS: APIXABAN 5 MG TABLET PO SCH (22:29)
[2019-08-05] MEDS ORDERED: hydrALAZINE HCL 20 MG/ML VIAL IVPUSH ONE (23:28)
[2019-08-05] MEDS ORDERED: hydrALAZINE HCL 20 MG/ML VIAL ONE (23:34)
[2019-08-06] MEDS ORDERED: METOCLOPRAMIDE HCL INJECTION 10 MG/2 ML VIAL IVPUSH ONE (01:39)
[2019-08-06 03:40] VITALS: BMI 27.6
[2019-08-06 07:26] LABS: BASO % 0.4 % (0-2.0); EOS % 1.3 % (0-4.5); HEMATOCRIT 44.7 % (35.4-49); HEMOGLOBIN 15.4 GM/dL (11.7-16.9); LYMPH % 17.1 % (8-40); MCH 30.1 pg (25.7-33.7); MCHC 34.5 g/dl (32.0-35.9); MEAN CELL VOLUME 87.3 fl (80-96); MEAN PLT VOLUME 8.1 fl (7.5-11.1); MONO % 10.1 % (3.8-10.2); NEUT % 71.1 % (42.8-82.8); PLATELET COUNT 281 K/MM3 (134-434); RBC 5.12 M/mm3 (4.00-5.60); RDW 14.5 % (11.9-15.9); WHITE BLOOD COUNT 7.9 K/mm3 (4.0-10.0)
[2019-08-06 08:02] LABS: ANION GAP 6 MMOL/L (8-16); BLOOD UREA NITROGEN 22.6 mg/dL (7-18); CALCIUM 8.7 mg/dL (8.5-10.1); CHLORIDE 105 mmol/L (98-107); CO2 28 mmol/L (21-32); CREATININE 1.2 mg/dL (0.55-1.3); GLUCOSE,RANDOM 102 mg/dL (74-106); MAGNESIUM 2.1 mg/dL (1.8-2.4); PHOSPHOROUS 3.2 mg/dL (2.5-4.9); POTASSIUM 3.5 mmol/L (3.5-5.1); SODIUM 139 mmol/L (136-145)
[2019-08-06] MEDS: metoPROLOL SUCCINATE 25 MG TAB.SR.24H (FP) PO SCH (09:54)
[2019-08-06] MEDS: DONEPEZIL HCL 5 MG TABLET (FP) PO SCH (09:54)
[2019-08-06] MEDS: LOSARTAN POTASSIUM 50 MG TABLET (FP) PO SCH (09:54)
[2019-08-06] MEDS: APIXABAN 5 MG TABLET PO SCH ×2 (09:54→21:27)
[2019-08-06] MEDS: TAMSULOSIN HCL 0.4 MG CAP PO SCH (09:54)
--- NOTE | 2019-08-06 10:12 | PN ---
Progress Note, Physician Chief Complaint: Hypertensive Emergency Syncope History of Present Illness: Previous notes and events reviewed awake and alert NAD denies headache/dizziness complain of SOB when sleeping - Current Medication List Current Medications: Active Medications Apixaban (Eliquis -) 5 mg PO BID [facility] Last Admin: 08/06/19 09:54 Dose: 5 mg Donepezil HCl (Aricept -) 5 mg PO DAILY [facility] Last Admin: 08/06/19 09:54 Dose: 5 mg Losartan Potassium (Cozaar -) 100 mg PO DAILY [facility] Last Admin: 08/06/19 09:54 Dose: 100 mg Metoprolol Succinate (Toprol Xl -) 25 mg PO DAILY [facility] Last Admin: 08/06/19 09:54 Dose: 25 mg Tamsulosin HCl (Flomax -) 0.4 mg PO DAILY [facility] Last Admin: 08/06/19 09:54 Dose: 0.4 mg - Objective Vital Signs: Vital Signs Temperature 98.5 F 08/06/19 09:00 Pulse Rate 58 L 08/06/19 09:00 Respiratory Rate 18 08/06/19 09:00 Blood Pressure 154/89 08/06/19 09:00 O2 Sat by Pulse Oximetry (%) 97 08/06/19 09:00 Constitutional: Yes: No Distress, Calm Eyes: Yes: Conjunctiva Clear HENT: Yes: Atraumatic Cardiovascular: Yes: Regular Rate and Rhythm Respiratory: Yes: Regular, CTA Bilaterally Gastrointestinal: Yes: Normal Bowel Sounds, Soft Musculoskeletal: Yes: WNL Extremities: Yes: WNL Edema: No Neurological: Yes: Alert, Oriented Psychiatric: Yes: Alert, Oriented Labs: CBC, BMP 08/06/19 06:08 08/06/19 06:08 INR, PTT INR 1.05 (0.83-1.09) 08/05/19 19:35 Problem List - Problems (1) BPH (benign prostatic hyperplasia) Assessment/Plan: -Tamsulosin Code(s): N40.0 - BENIGN PROSTATIC HYPERPLASIA WITHOUT LOWER URINRY TRACT SYMP (2) Headache Assessment/Plan: -Secondary to elevated BP Code(s): R51 - HEADACHE (3) Hypertensive emergency Assessment/Plan: -Cardiology consult -tele monitoring -Losartan -low Na diet Code(s): I16.1 - HYPERTENSIVE EMERGENCY (4) Syncope Assessment/Plan: -Cardiology consult -tele monitoring -Lipid panel reviewed~LDL >100 and TG 215, will start on Crestor 5mg HS -Head CT scan shows no CT evidence of acute intracranial pathology, multiple chronic supratentorial and intratenrorial infarcts -Echo 06/17/19 shows EF 55-60%, focal/nodular calcification aortic valve, LV systolic function normal, mild to mod basal septal hyptertrophy, trace to mild mitral regurg, mild tricuspid regurg -Carotid US 06/16/19 shows no doppler evidence of high grade internal carotid artery stenosis -fall precautions -neuro checks Code(s): R55 - SYNCOPE AND COLLAPSE (5) Hypertension Assessment/Plan: -Cardiology consult -tele monitoring -Losartan -low Na diet -patient states having poor compliance with low Na diet, dietary consult placed for patient teaching Code(s): I10 - ESSENTIAL (PRIMARY) HYPERTENSION Qualifiers: Hypertension type: unspecified Qualified Code(s): I10 - Essential (primary ) hypertension (6) Obstructive sleep apnea Assessment/Plan: -Pulm consult -keep SpO2 >90% -O2 via NC Code(s): G47.33 - OBSTRUCTIVE SLEEP APNEA (ADULT) (PEDIATRIC) (7) Paroxysmal atrial fibrillation Assessment/Plan: -Eliquis Code(s): I48.0 - PAROXYSMAL ATRIAL FIBRILLATION (8) Polycythemia Assessment/Plan: -H/H wnl -monitor CBC -consider Heme consult if Hg show uptrend Code(s): D75.1 - SECONDARY POLYCYTHEMIA Assessment/Plan see problem list
--- NOTE | 2019-08-06 12:37 | CON.PULM ---
Consult Consult Specialty:: PULMONARY Referred by:: BOBBY Aldana Reason for Consultation:: r/o HEATHER - History of Present Illness Chief Complaint: uncontrolled BP History of Present Illness: 69yo male with h/o HTN, polycythemia, paroxysmal atrial fibrillation, h/o CVA who was admitted after syncopal episode. Found to be severely hypertensive which is currently being worked up. Consulted for evaluation of sleep apnea. He reports very poor quality sleep, waking up every hour, gasping for air. He does not feel rested upon awakening. He is a loud snorer. No dry mouth or headache but experiences excessive daytime somnolence. 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 Cardio/Vascular: Yes: HTN - Alcohol/Substance Use Hx Alcohol Use: No History of Substance Use: reports: None - Smoking History Smoking history: Former smoker Have you smoked in the past 12 months: No - Social History ADL: Family Assistance History of Recent Travel: No Home Medications - Allergies Allergies/Adverse Reactions: Allergies Allergy/AdvReac Type Severity Reaction Status Date / Time No Known Drug Allergies Allergy Verified 08/05/19 19:38 - Home Medications Home Medications: Ambulatory Orders Donepezil HCl [Aricept] 5 mg PO DAILY 06/16/19 Tamsulosin HCl [Flomax -] 0.4 mg PO DAILY 06/16/19 Apixaban [Eliquis -] 5 mg PO BID #30 tablet 06/20/19 Losartan Potassium [Cozaar -] 100 mg PO DAILY #60 tablet 06/20/19 Metoprolol Succinate [Toprol XL -] 25 mg PO DAILY #30 tab.sr.24h 06/20/19 Zolpidem Tartrate 10 mg PO HS 08/05/19 Review of Systems - Review of Systems Constitutional: denies: Chills, Fever Eyes: denies: Recent Change in Vision HENT: denies: Nasal Congestion, Throat Pain Neck: denies: Stiffness, Tenderness Cardiovascular: denies: Chest Pain, Shortness of Breath Respiratory: denies: Cough, Wheezing Gastrointestinal: denies: Abdominal Pain, Nausea, Vomiting Genitourinary: denies: Dysuria, Hematuria Neurological: denies: Dizziness, Headache Endocrine: denies: Unexplained Weight Loss Physical Exam Vital Sings: Vital Signs Temperature 98.5 F 08/06/19 09:00 Pulse Rate 58 L 08/06/19 09:00 Respiratory Rate 18 08/06/19 09:00 Blood Pressure 154/89 08/06/19 09:00 O2 Sat by Pulse Oximetry (%) 97 08/06/19 09:00 Constitutional: Yes: Calm Eyes: Yes: Conjunctiva Clear, EOM Intact HENT: Yes: Atraumatic, Normocephalic Neck: Yes: Supple, Trachea Midline Cardiovascular: Yes: Regular Rate and Rhythm Respiratory: Yes: Diminished (decreased breath sounds at the bases) ...Clubbing: No Gastrointestinal: Yes: Normal Bowel Sounds, Soft. No: Tenderness Edema: No Labs: CBC, BMP 08/06/19 06:08 08/06/19 06:08 Assessment/Plan Suspect Obstructive Sleep Apnea Syncope Hypertensive Urgency Polycythemia Paroxysmal Atrial Fibrillation BPH h/o CVA - can order sleep screen as inpatient - will need outpt NPSG - rate controlled - BP control - continue anticoagulation Thank you for this consult Tulio Lynne MD
--- NOTE | 2019-08-06 12:47 | CON.CARD ---
Cardiology Consult (text) - Consultation Consultation Note: Consult Specialty:: Cardiology Referred by:: Dr. Alvarado Reason for Consultation:: syncope - History of Present Illness Chief Complaint: "I passed out" History of Present Illness: 69M h/o HTN, polycythemia, afib on eliquis, CKD, TIA p/w syncope, disoriented, high BP. Recent admission last month for syncope. Yesterday afternoon felt unsteady, confused and fell. He thinks he lost consciousness. On waking up his BP at home reportedly 205/135 mmHg, called EMS. Has high BPs at baseline, he is not sure how high but says it is rarely normal. No chest pain, palps, dyspnea. Says he has been taking meds as prescribed for BP and has a clonidine patch on as well. 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 Cardio/Vascular: Yes: HTN Pulmonary: No: Asthma, Bronchitis, Cancer, COPD, O2 Dependent, Pneumonia, Previously Intubated, Pulmonary Embolus, Pulmonary Fibrosis, Sleep Apnea, Other Gastrointestinal: No: Ascites, Cancer, Constipation, Crohn's Disease, Diverticulitis, Diverticulosis, Esophageal Varices, Gastritis, GERD, GI Bleed, Hemorrhoids, Hiatal Hernia, Inflamatory Bowel Disease, Irritable Bowel Disease, Pancreatitis, Peptic Ulcer Disease, Ulcerative Colitis, Other Hepatobiliary: No: Cirrhosis, Cholelithiasis, Cholecystitis, Choledocholithiasis , Hepatitis A, Hepatitis B, Hepatitis C, Other Renal/: No: Renal Failure, Renal Inusuff, BPH, Cancer, Hematuria, Hemodialysis , Neurogenic Bladder, Renal Calculi, UTI, Other Heme/Onc: No: Anemia, B12 Deficiency, Bleeding Disorder, Cancer, Current Chemotherapy, Current Radiation Therapy, Hemochromatosis, Hypercoaguable State, Myeloproliferative Synd, Sickle Cell Disease, Sickle Cell Trait, Thrombocytopenia, Other Infectious Disease: No: AIDS, C-Diff, Herpes Zoster, HIV, MRSA, STD's, Tuberculosis, VREF, Other Psych: No: Addictions, Anxiety, Bipolar, Depression, Panic, Psychosis, Schizophrenia, Other Musculoskeletal: No: Bursitis, Chronic low back pain, Hemiparesis, Hemiplegia, Osteoarthritis, Paraplegia, Other Rheumatology: No: Fibromyalgia, Gout, Lupus, Rheumatoid Arthritis, Sarcoidosis, Vasculitis, Other - Alcohol/Substance Use Hx Alcohol Use: No - Smoking History Smoking history: Never smoked Have you smoked in the past 12 months: No - Social History History of Recent Travel: No Home Medications - Allergies Allergies/Adverse Reactions: Allergies Allergy/AdvReac Type Severity Reaction Status Date / Time No Known Drug Allergies Allergy Verified 08/05/19 19:38 Ambulatory Orders Donepezil HCl [Aricept] 5 mg PO DAILY 06/16/19 Tamsulosin HCl [Flomax -] 0.4 mg PO DAILY 06/16/19 Apixaban [Eliquis -] 5 mg PO BID #30 tablet 06/20/19 Losartan Potassium [Cozaar -] 100 mg PO DAILY #60 tablet 06/20/19 Metoprolol Succinate [Toprol XL -] 25 mg PO DAILY #30 tab.sr.24h 06/20/19 Zolpidem Tartrate 10 mg PO HS 08/05/19 Family Medical History Family History: Unremarkable Review of Systems - Review of Systems Constitutional: reports: No Symptoms Eyes: reports: No Symptoms HENT: reports: No Symptoms Neck: reports: No Symptoms Cardiovascular: reports: No Symptoms, Palpitations Respiratory: reports: No Symptoms Gastrointestinal: reports: No Symptoms Genitourinary: reports: No Symptoms Breasts: reports: No Symptoms Reported Musculoskeletal: reports: No Symptoms Integumentary: reports: No Symptoms Neurological: reports: Syncope Endocrine: reports: No Symptoms Hematology/Lymphatic: reports: No Symptoms - Risk Factors Known Risk Factors: Yes: Hypertension, Prior AR /Emb Stroke Vital Signs Period Temp Pulse Resp BP Sys/Kirkpatrick Pulse Ox Last 24 Hr 97.7 F-98.5 F 50-65 17-18 148-206/89-116 95-100 Constitutional: Yes: Calm Neck: Yes: Trachea Midline Respiratory: Yes: CTA Bilaterally Gastrointestinal: Yes: Soft (nt) JVD: No Carotid Bruit: No Heart Sounds: Yes: S1, S2 (rrr) Edema: No Neurological: Yes: Alert, Oriented no jaundice, diaphoresis not agitated Laboratory Last Values WBC 7.9 K/mm3 (4.0-10.0) 08/06/19 06:08 RBC 5.12 M/mm3 (4.00-5.60) 08/06/19 06:08 Hgb 15.4 GM/dL (11.7-16.9) 08/06/19 06:08 Hct 44.7 % (35.4-49) 08/06/19 06:08 MCV 87.3 fl (80-96) 08/06/19 06:08 MCH 30.1 pg (25.7-33.7) 08/06/19 06:08 MCHC 34.5 g/dl (32.0-35.9) 08/06/19 06:08 RDW 14.5 % (11.9-15.9) 08/06/19 06:08 Plt Count 281 K/MM3 (134-434) 08/06/19 06:08 MPV 8.1 fl (7.5-11.1) 08/06/19 06:08 Absolute Neuts (auto) 5.6 K/mm3 (1.5-8.0) 08/06/19 06:08 Neutrophils % 71.1 % (42.8-82.8) 08/06/19 06:08 Lymphocytes % 17.1 % (8-40) 08/06/19 06:08 Monocytes % 10.1 % (3.8-10.2) 08/06/19 06:08 Eosinophils % 1.3 % (0-4.5) 08/06/19 06:08 Basophils % 0.4 % (0-2.0) 08/06/19 06:08 Nucleated RBC % 0 % (0-0) 08/06/19 06:08 PT with INR 12.40 SEC (9.7-13.0) 08/05/19 19:35 INR 1.05 (0.83-1.09) 08/05/19 19:35 PTT (Actin FS) 38.4 SECONDS (25.2-36.5) H 08/05/19 19:35 Sodium 139 mmol/L (136-145) 08/06/19 06:08 Potassium 3.5 mmol/L (3.5-5.1) 08/06/19 06:08 Chloride 105 mmol/L (98-107) 08/06/19 06:08 Carbon Dioxide 28 mmol/L (21-32) 08/06/19 06:08 Anion Gap 6 MMOL/L (8-16) L 08/06/19 06:08 BUN 22.6 mg/dL (7-18) H 08/06/19 06:08 Creatinine 1.2 mg/dL (0.55-1.3) 08/06/19 06:08 Est GFR (CKD-EPI)AfAm 71.08 08/06/19 06:08 Est GFR (CKD-EPI)NonAf 61.33 08/06/19 06:08 Random Glucose 102 mg/dL (74-106) 08/06/19 06:08 Calcium 8.7 mg/dL (8.5-10.1) 08/06/19 06:08 Phosphorus 3.2 mg/dL (2.5-4.9) 08/06/19 06:08 Magnesium 2.1 mg/dL (1.8-2.4) 08/06/19 06:08 Total Bilirubin 0.2 mg/dL (0.2-1) 08/05/19 19:35 AST 16 U/L (15-37) 08/05/19 19:35 ALT 29 U/L (13-61) 08/05/19 19:35 Alkaline Phosphatase 94 U/L (45-117) 08/05/19 19:35 Creatine Kinase 186 U/L (26-308) 08/05/19 19:35 Creatine Kinase Index 1.8 % (0.0-5.0) 08/05/19 19:35 CK-MB (CK-2) 3.5 ng/mL (0.5-3.6) 08/05/19 19:35 Troponin I < 0.02 ng/ml (0.00-0.05) 08/06/19 06:08 Total Protein 6.7 g/dl (6.4-8.2) 08/05/19 19:35 Albumin 3.9 g/dl (3.4-5.0) 08/05/19 19:35 Triglycerides 215 mg/dL (0-150) H 08/05/19 19:35 Cholesterol 170 mg/dL (50-200) 08/05/19 19:35 Total LDL Cholesterol 111 mg/dL (5-100) H 08/05/19 19:35 HDL Cholesterol 34 mg/dL (40-60) L 08/05/19 19:35 TSH 3.89 uIU/ml (0.358-3.74) H D 08/06/19 06:08 Urine Color Yellow 08/05/19 22:07 Urine Appearance Clear 08/05/19 22:07 Urine pH 6.0 (5.0-8.0) D 08/05/19 22: Ur Specific [place] 1.018 (1.010-1.035) 08/05/19 22: Urine Protein Negative (NEGATIVE) 08/05/19: Urine Glucose (UA) Negative (NEGATIVE) 08/05/19: Urine Ketones Negative (NEGATIVE) 08/05/19 22: Urine Blood Negative (NEGATIVE) 08/05/19: Urine Nitrite Negative (NEGATIVE) 08/05/19: Urine Bilirubin Negative (NEGATIVE) 08/05/19: Urine Urobilinogen 0.2 mg/dL (0.2-1.0) 08/05/19: Ur Leukocyte Esterase Negative (NEGATIVE) 08/05/19: Blood Type O POSITIVE 08/05/19: Antibody Screen Negative 08/05/19 19:35 Echo 06/16/19- EF 55-60%, lvsf normal, mild-mod septal hypertrophy, trace-mild MR , mild TR Carotid 06/16/19- no evidence of a high grade internal carotid artery stenosis is identified tele: sinus EKG: sinus, nl intervals, nonspecific ST changes syncope - monitoring on tele - recent echo, carotid dopplers unremarkable -trop neg x3, EKG no ischemic changes - unlikely ACS HTN - likely 2/2 noncompliance - improving here on meds - cont current meds - also says he uses clonidine patch at home 0.2 mg every 7 days, continue polycythemia - manage per primary afib - cont eliquis, metoprolol dementia - manage per primary HEATHER - not using CPAP - pulm consulted
--- NOTE | 2019-08-06 17:55 | EKG ---
Test Reason : Blood Pressure : / mmHG Vent. Rate : 058 BPM Atrial Rate : 058 BPM P-R Int : 208 ms QRS Dur : 090 ms QT Int : 406 ms P-R-T Axes : 068 049 -30 degrees QTc Int : 398 ms SINUS BRADYCARDIA SEPTAL INFARCT , AGE UNDETERMINED ABNORMAL ECG WHEN COMPARED WITH ECG OF 16-JUN-2019 23:20, SEPTAL INFARCT IS NOW PRESENT NONSPECIFIC T WAVE ABNORMALITY HAS REPLACED INVERTED T WAVES IN INFERIOR LEADS Confirmed by MD Stu, Ruben ([id number]) on 08/06/2019 5:55:30 PM Referred By: Confirmed By:Ruben Peraza MD
[2019-08-06] MEDS ORDERED: hydrALAZINE HCL 25 MG TABLET (FP) PO ONE (20:35)
[2019-08-06] MEDS: ROSUVASTATIN CA 5 MG TABLET (FP) PO SCH (21:27)
[2019-08-07 07:49] LABS: HEMATOCRIT 45.5 % (35.4-49); HEMOGLOBIN 15.6 GM/dL (11.7-16.9); MCH 30.3 pg (25.7-33.7); MCHC 34.3 g/dl (32.0-35.9); MEAN CELL VOLUME 88.2 fl (80-96); PLATELET COUNT 288 K/MM3 (134-434); RBC 5.15 M/mm3 (4.00-5.60); RDW 14.7 % (11.9-15.9); WHITE BLOOD COUNT 8.1 K/mm3 (4.0-10.0)
[2019-08-07 08:10] LABS: ALBUMIN 3.7 g/dl (3.4-5.0); BILIRUBIN,TOTAL 0.6 mg/dL (0.2-1); BLOOD UREA NITROGEN 21.1 mg/dL (7-18); CALCIUM 9.1 mg/dL (8.5-10.1); CREATININE 1.4 mg/dL (0.55-1.3); POTASSIUM 3.9 mmol/L (3.5-5.1); TOT PROT 6.7 g/dl (6.4-8.2)
[2019-08-07] MEDS: APIXABAN 5 MG TABLET PO SCH ×2 (09:26→21:22)
[2019-08-07] MEDS: LOSARTAN POTASSIUM 50 MG TABLET (FP) PO SCH (09:26)
[2019-08-07] MEDS: DONEPEZIL HCL 5 MG TABLET (FP) PO SCH (09:26)
[2019-08-07] MEDS: TAMSULOSIN HCL 0.4 MG CAP PO SCH (09:26)
[2019-08-07] MEDS: metoPROLOL SUCCINATE 25 MG TAB.SR.24H (FP) PO SCH (09:26)
--- NOTE | 2019-08-07 09:51 | PN ---
Progress Note, Physician Chief Complaint: Hypertensive Emergency Syncope History of Present Illness: Previous notes and events reviewed awake and alert NAD denies headache/dizziness complain of SOB when sleeping denies chest pain or palpitations - Current Medication List Current Medications: Active Medications Apixaban (Eliquis -) 5 mg PO BID [facility] Last Admin: 08/07/19 09:26 Dose: 5 mg Donepezil HCl (Aricept -) 5 mg PO DAILY [facility] Last Admin: 08/07/19 09:26 Dose: 5 mg Losartan Potassium (Cozaar -) 100 mg PO DAILY [facility] Last Admin: 08/07/19 09:26 Dose: 100 mg Metoprolol Succinate (Toprol Xl -) 25 mg PO DAILY [facility] Last Admin: 08/07/19 09:26 Dose: 25 mg Rosuvastatin Calcium (Crestor -) 5 mg PO HS [facility] Last Admin: 08/06/19 21:27 Dose: 5 mg Tamsulosin HCl (Flomax -) 0.4 mg PO DAILY [facility] Last Admin: 08/07/19 09:26 Dose: 0.4 mg - Objective Vital Signs: Vital Signs Temperature 97.9 F 08/07/19 05:00 Pulse Rate 59 L 08/07/19 05:00 Respiratory Rate 18 08/07/19 05:00 Blood Pressure 134/88 08/07/19 05:00 O2 Sat by Pulse Oximetry (%) 96 08/06/19 21:00 Constitutional: Yes: No Distress, Calm Eyes: Yes: Conjunctiva Clear HENT: Yes: Atraumatic Cardiovascular: Yes: Regular Rate and Rhythm Respiratory: Yes: Regular, CTA Bilaterally Gastrointestinal: Yes: Normal Bowel Sounds, Soft Musculoskeletal: Yes: WNL Extremities: Yes: WNL Edema: No Neurological: Yes: Alert, Oriented Psychiatric: Yes: Alert, Oriented Labs: CBC, BMP 08/07/19 06:50 08/07/19 06:50 INR, PTT INR 1.05 (0.83-1.09) 08/05/19 19:35 Problem List - Problems (1) BPH (benign prostatic hyperplasia) Assessment/Plan: -Tamsulosin Code(s): N40.0 - BENIGN PROSTATIC HYPERPLASIA WITHOUT LOWER URINRY TRACT SYMP (2) Headache Assessment/Plan: -Secondary to elevated BP -resolved Code(s): R51 - HEADACHE (3) Hypertensive emergency Assessment/Plan: -Cardiology consult -tele monitoring -Losartan -low Na diet -dietary consult due to patient non-compliance to low Na diet Code(s): I16.1 - HYPERTENSIVE EMERGENCY (4) Syncope Assessment/Plan: -Cardiology consult -tele monitoring -Lipid panel reviewed~LDL >100 and TG 215, Crestor 5mg HS -Head CT scan shows no CT evidence of acute intracranial pathology, multiple chronic supratentorial and intratenrorial infarcts -Echo 06/17/19 shows EF 55-60%, focal/nodular calcification aortic valve, LV systolic function normal, mild to mod basal septal hyptertrophy, trace to mild mitral regurg, mild tricuspid regurg -Carotid US 06/16/19 shows no doppler evidence of high grade internal carotid artery stenosis -fall precautions -neuro checks Code(s): R55 - SYNCOPE AND COLLAPSE (5) Hypertension Assessment/Plan: -Cardiology consult -tele monitoring -Losartan -low Na diet -patient states having poor compliance with low Na diet, dietary consult Code(s): I10 - ESSENTIAL (PRIMARY) HYPERTENSION Qualifiers: Hypertension type: unspecified Qualified Code(s): I10 - Essential (primary ) hypertension (6) Obstructive sleep apnea Assessment/Plan: -Pulm consult -keep SpO2 >90% -O2 via NC -in-patient sleep study Code(s): G47.33 - OBSTRUCTIVE SLEEP APNEA (ADULT) (PEDIATRIC) (7) Paroxysmal atrial fibrillation Assessment/Plan: -Eliquis -rate control with Metoprolol Code(s): I48.0 - PAROXYSMAL ATRIAL FIBRILLATION (8) Polycythemia Assessment/Plan: -H/H wnl -monitor CBC -consider Heme consult if Hg show uptrend Code(s): D75.1 - SECONDARY POLYCYTHEMIA Assessment/Plan see problem list
--- NOTE | 2019-08-07 11:55 | PN ---
Progress Note (short form) - Note Progress Note: s: no chest pain, palps, dizziness, dyspnea Current Medications Apixaban (Eliquis -) 5 mg PO BID [facility] Last Admin: 08/07/19 09:26 Dose: 5 mg Donepezil HCl (Aricept -) 5 mg PO DAILY [facility] Last Admin: 08/07/19 09:26 Dose: 5 mg Losartan Potassium (Cozaar -) 100 mg PO DAILY [facility] Last Admin: 08/07/19 09:26 Dose: 100 mg Metoprolol Succinate (Toprol Xl -) 25 mg PO DAILY [facility] Last Admin: 08/07/19 09:26 Dose: 25 mg Rosuvastatin Calcium (Crestor -) 5 mg PO HS [facility] Last Admin: 08/06/19 21:27 Dose: 5 mg Tamsulosin HCl (Flomax -) 0.4 mg PO DAILY [facility] Last Admin: 08/07/19 09:26 Dose: 0.4 mg Vital Signs Period Temp Pulse Resp BP Sys/Kirkpatrick Pulse Ox Last 24 Hr 97.7 F-98.3 F 57-72 18-20 134-195/84-97 96 Constitutional: Yes: Calm Neck: Yes: Trachea Midline Respiratory: Yes: CTA Bilaterally Gastrointestinal: Yes: Soft (nt) JVD: No Carotid Bruit: No Heart Sounds: Yes: S1, S2 (rrr) Edema: No Neurological: Yes: Alert, Oriented no jaundice, diaphoresis not agitated Echo 06/16/19- EF 55-60%, lvsf normal, mild-mod septal hypertrophy, trace-mild MR , mild TR Carotid 06/16/19- no evidence of a high grade internal carotid artery stenosis is identified tele: sinus EKG: sinus, nl intervals, nonspecific ST changes syncope - monitoring on tele - recent echo, carotid dopplers unremarkable -trop neg x3, EKG no ischemic changes - unlikely ACS HTN - likely 2/2 noncompliance - improving here on meds, however high BPs in the evening - cont clonidine, losartan - change metoprolol to carvedilol 12.5 mg BID polycythemia - manage per primary afib - cont eliquis, change to carvedilol as above dementia - manage per primary HEATHER - not using CPAP - pulm consulted
--- NOTE | 2019-08-07 13:08 | PN ---
Progress Note (short form) - Note Progress Note: PULMONARY Sleep screen showing AHI 27. Vital Signs Period Temp Pulse Resp BP Sys/Kirkpatrick Pulse Ox Last 24 Hr 97.7 F-98.3 F 57-72 18-20 134-195/84-97 96 Gen: NAD at rest Heart: RRR Lung: decreased breath sounds at the bases Abd: soft, nontender Ext: no edema CBC, BMP 08/07/19 06:50 08/07/19 06:50 Active Medications Apixaban (Eliquis -) 5 mg PO BID [facility] Last Admin: 08/07/19 09:26 Dose: 5 mg Carvedilol (Coreg -) 12.5 mg PO BID [facility] Clonidine HCl (Catapres Tts Patch -) 0.2 mg TD Q7D@1000 [facility] Donepezil HCl (Aricept -) 5 mg PO DAILY [facility] Last Admin: 08/07/19 09:26 Dose: 5 mg Losartan Potassium (Cozaar -) 100 mg PO DAILY [facility] Last Admin: 08/07/19 09:26 Dose: 100 mg Rosuvastatin Calcium (Crestor -) 5 mg PO HS [facility] Last Admin: 08/06/19 21:27 Dose: 5 mg Tamsulosin HCl (Flomax -) 0.4 mg PO DAILY [facility] Last Admin: 08/07/19 09:26 Dose: 0.4 mg A/P Suspect Obstructive Sleep Apnea Syncope Hypertensive Urgency Polycythemia Paroxysmal Atrial Fibrillation BPH h/o CVA - will need outpt NPSG - rate controlled - BP control - continue anticoagulation
[2019-08-07] MEDS: CARVEDILOL 12.5 MG TABLET (FP) PO SCH (21:22)
[2019-08-07] MEDS: ROSUVASTATIN CA 5 MG TABLET (FP) PO SCH (21:22)
[2019-08-08 07:16] LABS: HEMATOCRIT 42.6 % (35.4-49); HEMOGLOBIN 14.6 GM/dL (11.7-16.9); MCH 30.3 pg (25.7-33.7); MCHC 34.3 g/dl (32.0-35.9); MEAN CELL VOLUME 88.3 fl (80-96); MEAN PLT VOLUME 8.1 fl (7.5-11.1); PLATELET COUNT 275 K/MM3 (134-434); RBC 4.82 M/mm3 (4.00-5.60); RDW 14.8 % (11.9-15.9)
[2019-08-08 07:51] LABS: ALBUMIN 3.6 g/dl (3.4-5.0); BILIRUBIN,TOTAL 0.5 mg/dL (0.2-1); BLOOD UREA NITROGEN 22.4 mg/dL (7-18); CALCIUM 8.9 mg/dL (8.5-10.1); CREATININE 1.4 mg/dL (0.55-1.3); POTASSIUM 3.7 mmol/L (3.5-5.1); TOT PROT 6.4 g/dl (6.4-8.2)
--- NOTE | 2019-08-08 09:26 | PN ---
Progress Note, Physician Chief Complaint: syncope History of Present Illness: no dizzy, LH, syncope no cp, palp, sob - Current Medication List Current Medications: Active Medications Apixaban (Eliquis -) 5 mg PO BID [facility] Last Admin: 08/07/19 21:22 Dose: 5 mg Carvedilol (Coreg -) 12.5 mg PO BID [facility] Last Admin: 08/07/19 21:22 Dose: 12.5 mg Clonidine HCl (Catapres Tts Patch -) 0.2 mg TD Q7D@1000 [facility] Donepezil HCl (Aricept -) 5 mg PO DAILY [facility] Last Admin: 08/07/19 09:26 Dose: 5 mg Losartan Potassium (Cozaar -) 100 mg PO DAILY [facility] Last Admin: 08/07/19 09:26 Dose: 100 mg Rosuvastatin Calcium (Crestor -) 5 mg PO HS [facility] Last Admin: 08/07/19 21:22 Dose: 5 mg Tamsulosin HCl (Flomax -) 0.4 mg PO DAILY [facility] Last Admin: 08/07/19 09:26 Dose: 0.4 mg - Objective Vital Signs: Vital Signs Temperature 97.7 F 08/08/19 05:00 Pulse Rate 50 L 08/08/19 05:00 Respiratory Rate 18 08/08/19 05:00 Blood Pressure 144/102 H 08/08/19 05:00 O2 Sat by Pulse Oximetry (%) 97 08/07/19 21:00 Constitutional: Yes: Well Nourished, No Distress, Calm Cardiovascular: Yes: Regular Rate and Rhythm, S1, S2. No: Gallop, Murmur Respiratory: Yes: Regular, CTA Bilaterally. No: Accessory Muscle Use, Rales, Wheezes Extremities: No: Cold Edema: No Neurological: Yes: Alert, Oriented Psychiatric: No: Agitated Labs: CBC, BMP 08/08/19 06:58 08/08/19 06:58 INR, PTT INR 1.05 (0.83-1.09) 08/05/19 19:35 Assessment/Plan Echo 06/16/19- EF 55-60%, lvsf normal, mild-mod septal hypertrophy, trace-mild MR , mild TR Carotid 06/16/19- no evidence of a high grade internal carotid artery stenosis is identified EKG: sinus, nl intervals, nonspecific ST changes CT head: no acute. + chronic infarcts tele: NSR, artifact syncope - hx uncertain--reports he felt unsteady, confused and fell, thinks he lost consciousness with reported bp upon awakening 205/135 mmHg. does not recall the actual fall - monitoring on tele - recent echo, carotid dopplers unremarkable - trop neg x3, EKG no ischemic changes - unlikely ACS - check orthostatics HTN - likely 2/2 noncompliance - suboptimal BPs here jamal in the evening - changed metoprolol to carvedilol 12.5 mg BID - cont clonidine, losartan - bp improving, observe trend, check orthostatics polycythemia - manage per primary afib - cont eliquis, change to carvedilol as above old strokes (on CT): - cont AC, statin, bp control dementia - manage per primary HEATHER - not using CPAP - per pmd, pulm
--- NOTE | 2019-08-08 10:20 | PN ---
Progress Note, Physician History of Present Illness: PULMONARY ALERT,COMFORTABLE,-RESP DISTRESS - Current Medication List Current Medications: Active Medications Apixaban (Eliquis -) 5 mg PO BID [facility] Last Admin: 08/07/19 21:22 Dose: 5 mg Carvedilol (Coreg -) 12.5 mg PO BID [facility] Last Admin: 08/07/19 21:22 Dose: 12.5 mg Clonidine HCl (Catapres Tts Patch -) 0.2 mg TD Q7D@1000 [facility] Donepezil HCl (Aricept -) 5 mg PO DAILY [facility] Last Admin: 08/07/19 09:26 Dose: 5 mg Losartan Potassium (Cozaar -) 100 mg PO DAILY [facility] Last Admin: 08/07/19 09:26 Dose: 100 mg Rosuvastatin Calcium (Crestor -) 5 mg PO HS [facility] Last Admin: 08/07/19 21:22 Dose: 5 mg Tamsulosin HCl (Flomax -) 0.4 mg PO DAILY [facility] Last Admin: 08/07/19 09:26 Dose: 0.4 mg - Objective Vital Signs: Vital Signs Temperature 97.7 F 08/08/19 05:00 Pulse Rate 50 L 08/08/19 05:00 Respiratory Rate 18 08/08/19 05:00 Blood Pressure 144/102 H 08/08/19 05:00 O2 Sat by Pulse Oximetry (%) 97 08/07/19 21:00 Constitutional: Yes: Well Nourished, Calm Eyes: Yes: WNL HENT: Yes: WNL Neck: Yes: WNL Cardiovascular: Yes: Pulse Irregular, S1, S2 Respiratory: Yes: CTA Bilaterally Gastrointestinal: Yes: Normal Bowel Sounds, Soft Extremities: Yes: WNL Edema: No Labs: CBC, BMP 08/08/19 06:58 08/08/19 06:58 INR, PTT INR 1.05 (0.83-1.09) 08/05/19 19:35 Problem List - Problems (1) BPH (benign prostatic hyperplasia) Code(s): N40.0 - BENIGN PROSTATIC HYPERPLASIA WITHOUT LOWER URINRY TRACT SYMP (2) Syncope Code(s): R55 - SYNCOPE AND COLLAPSE (3) Chest pain Code(s): R07.9 - CHEST PAIN, UNSPECIFIED Qualifiers: Chest pain type: other chest pain Qualified Code(s): R07.89 - Other chest pain (4) Coronary artery disease Code(s): I25.10 - ATHSCL HEART DISEASE OF [place] CORONARY ARTERY W/O ANG PCTRS (5) Hypertension Code(s): I10 - ESSENTIAL (PRIMARY) HYPERTENSION Qualifiers: Hypertension type: unspecified Qualified Code(s): I10 - Essential (primary ) hypertension (6) Obstructive sleep apnea Code(s): G47.33 - OBSTRUCTIVE SLEEP APNEA (ADULT) (PEDIATRIC) (7) Paroxysmal atrial fibrillation Code(s): I48.0 - PAROXYSMAL ATRIAL FIBRILLATION (8) Polycythemia Code(s): D75.1 - SECONDARY POLYCYTHEMIA Assessment/Plan A/P Suspect Obstructive Sleep Apnea AHI 27 on sleep screen Syncope Hypertensive Urgency Polycythemia Paroxysmal Atrial Fibrillation BPH h/o CVA - outpt NPSG - rate controlled - BP control - continue anticoagulation -chest x-ray DR BROOKS
[2019-08-08] MEDS: APIXABAN 5 MG TABLET PO SCH ×2 (11:06→22:39)
[2019-08-08] MEDS: TAMSULOSIN HCL 0.4 MG CAP PO SCH (11:06)
[2019-08-08] MEDS: LOSARTAN POTASSIUM 50 MG TABLET (FP) PO SCH (11:06)
[2019-08-08] MEDS: CARVEDILOL 12.5 MG TABLET (FP) PO SCH ×2 (11:06→22:39)
[2019-08-08] MEDS: DONEPEZIL HCL 5 MG TABLET (FP) PO SCH (11:06)
--- NOTE | 2019-08-08 13:17 | PN ---
Progress Note, Physician Chief Complaint: patient seen and examined BP elevated earlier in day says he gets dizzy and headache when his BP starts to elevate - Current Medication List Current Medications: Active Medications Apixaban (Eliquis -) 5 mg PO BID [facility] Last Admin: 08/08/19 11:06 Dose: 5 mg Carvedilol (Coreg -) 12.5 mg PO BID [facility] Last Admin: 08/08/19 11:06 Dose: 12.5 mg Clonidine HCl (Catapres Tts Patch -) 0.2 mg TD Q7D@1000 [facility] Donepezil HCl (Aricept -) 5 mg PO DAILY [facility] Last Admin: 08/08/19 11:06 Dose: 5 mg Losartan Potassium (Cozaar -) 100 mg PO DAILY [facility] Last Admin: 08/08/19 11:06 Dose: 100 mg Rosuvastatin Calcium (Crestor -) 5 mg PO HS [facility] Last Admin: 08/07/19 21:22 Dose: 5 mg Tamsulosin HCl (Flomax -) 0.4 mg PO DAILY [facility] Last Admin: 08/08/19 11:06 Dose: 0.4 mg - Objective Vital Signs: Vital Signs Temperature 97.7 F 08/08/19 05:00 Pulse Rate 58 L 08/08/19 11:00 Respiratory Rate 18 08/08/19 11:00 Blood Pressure 158/91 08/08/19 11:00 O2 Sat by Pulse Oximetry (%) 97 08/07/19 21:00 Constitutional: Yes: Calm Cardiovascular: Yes: Regular Rate and Rhythm, S1, S2 Respiratory: Yes: CTA Bilaterally Gastrointestinal: Yes: Normal Bowel Sounds, Soft Labs: CBC, BMP 08/08/19 06:58 08/08/19 06:58 INR, PTT INR 1.05 (0.83-1.09) 08/05/19 19:35 Problem List - Problems (1) BPH (benign prostatic hyperplasia) Assessment/Plan: floomax Code(s): N40.0 - BENIGN PROSTATIC HYPERPLASIA WITHOUT LOWER URINRY TRACT SYMP (2) Hypertensive emergency Assessment/Plan: coreg, clonidine patch losartan check orthostatics today Code(s): I16.1 - HYPERTENSIVE EMERGENCY (3) Paroxysmal atrial fibrillation Assessment/Plan: elquis and coreg Code(s): I48.0 - PAROXYSMAL ATRIAL FIBRILLATION (4) HLD (hyperlipidemia) Assessment/Plan: statin Code(s): E78.5 - HYPERLIPIDEMIA, UNSPECIFIED (5) Obstructive sleep apnea Assessment/Plan: will need outpatient sleep studies pulm consult appreciate cxr Code(s): G47.33 - OBSTRUCTIVE SLEEP APNEA (ADULT) (PEDIATRIC)
[2019-08-08] MEDS: ROSUVASTATIN CA 5 MG TABLET (FP) PO SCH (22:39)
--- NOTE | 2019-08-09 09:01 | DS ---
Physical Examination Vital Signs: Vital Signs Temperature 97.8 F 08/09/19 02:00 Pulse Rate 52 L 08/09/19 02:00 Respiratory Rate 18 08/09/19 02:00 Blood Pressure 145/92 08/09/19 02:00 O2 Sat by Pulse Oximetry (%) 98 08/08/19 21:00 Cardiovascular: Yes: S1, S2 Respiratory: Yes: Regular, CTA Bilaterally Gastrointestinal: Yes: Normal Bowel Sounds, Soft Edema: No Neurological: Yes: Alert, Oriented Labs: CBC, BMP 08/08/19 06:58 08/08/19 06:58 Discharge Summary Problems reviewed: Yes Reason For Visit: HYPERTENSIVE EMERGENCY SYNCOPE Current Active Problems BPH (benign prostatic hyperplasia) (Acute) Dementia (Acute) HLD (hyperlipidemia) (Acute) Headache (Acute) Hypertensive emergency (Acute) Syncope (Acute) Hospital Course: - Problems (1) BPH (benign prostatic hyperplasia) Assessment/Plan: floomax Code(s): N40.0 - BENIGN PROSTATIC HYPERPLASIA WITHOUT LOWER URINRY TRACT SYMP (2) Hypertensive emergency Assessment/Plan: coreg, clonidine patch losartan add norvasc 5 mg check orthostatics today Code(s): I16.1 - HYPERTENSIVE EMERGENCY (3) Paroxysmal atrial fibrillation Assessment/Plan: elquis and coreg Code(s): I48.0 - PAROXYSMAL ATRIAL FIBRILLATION (4) HLD (hyperlipidemia) Assessment/Plan: statin Code(s): E78.5 - HYPERLIPIDEMIA, UNSPECIFIED (5) Obstructive sleep apnea Assessment/Plan: will need outpatient sleep studies pulm consult appreciate cxr Code(s): G47.33 - OBSTRUCTIVE SLEEP APNEA (ADULT) (PEDIATRIC) dc home once bp controlled Condition: Improved - Instructions Referrals: Akash Ying MD [Primary Care Provider] - 1 Week Disposition: HOME - Home Medications Comprehensive Discharge Medication List: Ambulatory Orders Donepezil HCl [Aricept] 5 mg PO DAILY 06/16/19 Tamsulosin HCl [Flomax -] 0.4 mg PO DAILY 06/16/19 Apixaban [Eliquis -] 5 mg PO BID #30 tablet 06/20/19 Losartan Potassium [Cozaar -] 100 mg PO DAILY #60 tablet 06/20/19 Amlodipine Besylate [Norvasc -] 5 mg PO DAILY #30 tablet 08/09/19 Carvedilol [Coreg -] 12.5 mg PO BID #60 tablet 08/09/19 Clonidine Patch [Catapres Tts Patch -] 0.2 mg TD Q7D@1000 #4 patch.tdwk Rosuvastatin [Crestor -] 5 mg PO HS #30 tablet 08/09/19
[2019-08-09] MEDS ORDERED: amLODIPine BESYLATE 5 MG TABLET (FP) PO SCH (10:00)
[2019-08-09] MEDS: DONEPEZIL HCL 5 MG TABLET (FP) PO SCH (10:05)
[2019-08-09] MEDS: APIXABAN 5 MG TABLET PO SCH ×2 (10:05→21:20)
[2019-08-09] MEDS: TAMSULOSIN HCL 0.4 MG CAP PO SCH (10:05)
[2019-08-09] MEDS: LOSARTAN POTASSIUM 50 MG TABLET (FP) PO SCH (10:05)
[2019-08-09] MEDS: CARVEDILOL 12.5 MG TABLET (FP) PO SCH (10:05)
--- NOTE | 2019-08-09 10:59 | PN ---
Progress Note, Physician History of Present Illness: PULMONARY ALERT,COMFORTABLE,-RESP DISTRESS - Current Medication List Current Medications: Active Medications Amlodipine Besylate (Norvasc -) 5 mg PO DAILY [facility] Last Admin: 08/09/19 10:05 Dose: 5 mg Apixaban (Eliquis -) 5 mg PO BID [facility] Last Admin: 08/09/19 10:05 Dose: 5 mg Carvedilol (Coreg -) 12.5 mg PO BID [facility] Last Admin: 08/09/19 10:05 Dose: 12.5 mg Clonidine HCl (Catapres Tts Patch -) 0.2 mg TD Q7D@1000 [facility] Donepezil HCl (Aricept -) 5 mg PO DAILY [facility] Last Admin: 08/09/19 10:05 Dose: 5 mg Losartan Potassium (Cozaar -) 100 mg PO DAILY [facility] Last Admin: 08/09/19 10:05 Dose: 100 mg Rosuvastatin Calcium (Crestor -) 5 mg PO HS [facility] Last Admin: 08/08/19 22:39 Dose: 5 mg Tamsulosin HCl (Flomax -) 0.4 mg PO DAILY [facility] Last Admin: 08/09/19 10:05 Dose: 0.4 mg - Objective Vital Signs: Vital Signs Temperature 98.2 F 08/09/19 09:43 Pulse Rate 70 08/09/19 10:19 Respiratory Rate 20 08/09/19 09:43 Blood Pressure 175/88 H 08/09/19 10:19 O2 Sat by Pulse Oximetry (%) 97 08/09/19 09:00 Constitutional: Yes: Well Nourished, Calm Eyes: Yes: WNL HENT: Yes: WNL Neck: Yes: WNL Cardiovascular: Yes: Regular Rate and Rhythm, S1, S2 Respiratory: Yes: CTA Bilaterally Gastrointestinal: Yes: Normal Bowel Sounds, Soft Extremities: Yes: WNL Edema: No Labs: CBC, BMP 08/08/19 06:58 08/08/19 06:58 INR, PTT INR 1.05 (0.83-1.09) 08/05/19 19:35 - ....Imaging Chest X-ray: Report Reviewed, Image Reviewed Problem List - Problems (1) BPH (benign prostatic hyperplasia) Code(s): N40.0 - BENIGN PROSTATIC HYPERPLASIA WITHOUT LOWER URINRY TRACT SYMP (2) Syncope Code(s): R55 - SYNCOPE AND COLLAPSE (3) Chest pain Code(s): R07.9 - CHEST PAIN, UNSPECIFIED Qualifiers: Chest pain type: other chest pain Qualified Code(s): R07.89 - Other chest pain (4) Coronary artery disease Code(s): I25.10 - ATHSCL HEART DISEASE OF [place] CORONARY ARTERY W/O ANG PCTRS (5) Hypertension Code(s): I10 - ESSENTIAL (PRIMARY) HYPERTENSION Qualifiers: Hypertension type: unspecified Qualified Code(s): I10 - Essential (primary ) hypertension (6) Obstructive sleep apnea Code(s): G47.33 - OBSTRUCTIVE SLEEP APNEA (ADULT) (PEDIATRIC) (7) Paroxysmal atrial fibrillation Code(s): I48.0 - PAROXYSMAL ATRIAL FIBRILLATION (8) Polycythemia Code(s): D75.1 - SECONDARY POLYCYTHEMIA Assessment/Plan A/P Suspect Obstructive Sleep Apnea AHI 27 on sleep screen Syncope Hypertensive Urgency Polycythemia Paroxysmal Atrial Fibrillation BPH h/o CVA - outpt NPSG - rate controlled - BP control - anticoagulation DR BROOKS
[2019-08-09] MEDS ORDERED: CARVEDILOL 12.5 MG TABLET (FP) PO ONE (11:16)
--- NOTE | 2019-08-09 11:18 | PN ---
Progress Note (short form) - Note Progress Note: s: no chest pain, palps, dizziness, dyspnea Current Medications Amlodipine Besylate (Norvasc -) 5 mg PO DAILY [facility] Last Admin: 08/09/19 10:05 Dose: 5 mg Apixaban (Eliquis -) 5 mg PO BID [facility] Last Admin: 08/09/19 10:05 Dose: 5 mg Carvedilol (Coreg -) 25 mg PO BID [facility] Carvedilol (Coreg -) 12.5 mg PO ONCE ONE Stop: 08/09/19 11:17 Clonidine HCl (Catapres Tts Patch -) 0.2 mg TD Q7D@1000 [facility] Donepezil HCl (Aricept -) 5 mg PO DAILY [facility] Last Admin: 08/09/19 10:05 Dose: 5 mg Losartan Potassium (Cozaar -) 100 mg PO DAILY [facility] Last Admin: 08/09/19 10:05 Dose: 100 mg Rosuvastatin Calcium (Crestor -) 5 mg PO HS [facility] Last Admin: 08/08/19 22:39 Dose: 5 mg Tamsulosin HCl (Flomax -) 0.4 mg PO DAILY [facility] Last Admin: 08/09/19 10:05 Dose: 0.4 mg Vital Signs Period Temp Pulse Resp BP Sys/Kirkpatrick Pulse Ox Last 24 Hr 97.6 F-98.3 F 52-75 18-20 118-176/73-110 97-98 Constitutional: Yes: Well Nourished, No Distress, Calm Cardiovascular: Yes: Regular Rate and Rhythm, S1, S2. No: Gallop, Murmur Respiratory: Yes: Regular, CTA Bilaterally. No: Accessory Muscle Use, Rales, Wheezes Extremities: No: Cold Edema: No Neurological: Yes: Alert, Oriented Psychiatric: No: Agitated Assessment/Plan Echo 06/16/19- EF 55-60%, lvsf normal, mild-mod septal hypertrophy, trace-mild MR , mild TR Carotid 06/16/19- no evidence of a high grade internal carotid artery stenosis is identified EKG: sinus, nl intervals, nonspecific ST changes CT head: no acute. + chronic infarcts tele: NSR, artifact syncope - hx uncertain--reports he felt unsteady, confused and fell, thinks he lost consciousness with reported bp upon awakening 205/135 mmHg. does not recall the actual fall - monitoring on tele - recent echo, carotid dopplers unremarkable - trop neg x3, EKG no ischemic changes - unlikely ACS - orthostatics negative HTN - likely 2/2 noncompliance - suboptimal BPs here jamal in the evening - changed metoprolol to carvedilol 12.5 mg BID - cont clonidine, losartan - bp high again this morning - inc carvedilol to 25 mg BID polycythemia - manage per primary afib - cont eliquis, change to carvedilol as above old strokes (on CT): - cont AC, statin, bp control dementia - manage per primary HEATHER - not using CPAP - per pmd, pulm
[2019-08-09] MEDS: CARVEDILOL 25 MG TABLET (FP) PO SCH (21:20)
[2019-08-09] MEDS: ROSUVASTATIN CA 5 MG TABLET (FP) PO SCH (21:20)
--- NOTE | 2019-08-10 09:23 | DS ---
Physical Examination Vital Signs: Vital Signs Temperature 98.1 F 08/10/19 06:00 Pulse Rate 62 08/10/19 06:00 Respiratory Rate 18 08/10/19 06:00 Blood Pressure 166/99 08/10/19 06:00 O2 Sat by Pulse Oximetry (%) 96 08/09/19 20:13 Cardiovascular: Yes: Regular Rate and Rhythm Respiratory: Yes: Regular, CTA Bilaterally Gastrointestinal: Yes: Normal Bowel Sounds, Soft Labs: CBC, BMP 08/08/19 06:58 08/08/19 06:58 Discharge Summary Problems reviewed: Yes Reason For Visit: HYPERTENSIVE EMERGENCY SYNCOPE Current Active Problems BPH (benign prostatic hyperplasia) (Acute) Dementia (Acute) HLD (hyperlipidemia) (Acute) Headache (Acute) Hypertensive emergency (Acute) Syncope (Acute) Hospital Course: - Problems (1) BPH (benign prostatic hyperplasia) Assessment/Plan: floomax Code(s): N40.0 - BENIGN PROSTATIC HYPERPLASIA WITHOUT LOWER URINRY TRACT SYMP (2) Hypertensive emergency Assessment/Plan: coreg, clonidine patch losartan add norvasc 10 mg check orthostatics today Code(s): I16.1 - HYPERTENSIVE EMERGENCY (3) Paroxysmal atrial fibrillation Assessment/Plan: elquis and coreg Code(s): I48.0 - PAROXYSMAL ATRIAL FIBRILLATION (4) HLD (hyperlipidemia) Assessment/Plan: statin Code(s): E78.5 - HYPERLIPIDEMIA, UNSPECIFIED (5) Obstructive sleep apnea Assessment/Plan: will need outpatient sleep studies pulm consult appreciate cxr Code(s): G47.33 - OBSTRUCTIVE SLEEP APNEA (ADULT) (PEDIATRIC) dc home once bp controlled Condition: Improved - Instructions Referrals: Akash Ying MD [Primary Care Provider] - 1 Week Disposition: VNS/HOME HEALTH CARE - Home Medications Comprehensive Discharge Medication List: Ambulatory Orders Donepezil HCl [Aricept] 5 mg PO DAILY 06/16/19 Tamsulosin HCl [Flomax -] 0.4 mg PO DAILY 06/16/19 Apixaban [Eliquis -] 5 mg PO BID #30 tablet 06/20/19 Losartan Potassium [Cozaar -] 100 mg PO DAILY #60 tablet 06/20/19 Clonidine Patch [Catapres Tts Patch -] 0.2 mg TD Q7D@1000 #4 patch.tdwk Rosuvastatin [Crestor -] 5 mg PO HS #30 tablet 08/09/19 Amlodipine Besylate [Norvasc -] 10 mg PO DAILY #30 tablet 08/10/19 Carvedilol [Coreg -] 25 mg PO BID #60 tablet 08/10/19
[2019-08-10] MEDS ORDERED: amLODIPine BESYLATE 5 MG TABLET (FP) PO SCH (10:00)
--- NOTE | 2019-08-10 10:33 | PN ---
Progress Note, Physician History of Present Illness: pulmonary alert,comfortable,no distress - Current Medication List Current Medications: Active Medications Amlodipine Besylate (Norvasc -) 10 mg PO DAILY [facility] Apixaban (Eliquis -) 5 mg PO BID [facility] Last Admin: 08/09/19 21:20 Dose: 5 mg Carvedilol (Coreg -) 25 mg PO BID [facility] Last Admin: 08/09/19 21:20 Dose: 25 mg Clonidine HCl (Catapres Tts Patch -) 0.2 mg TD Q7D@1000 [facility] Donepezil HCl (Aricept -) 5 mg PO DAILY [facility] Last Admin: 08/09/19 10:05 Dose: 5 mg Losartan Potassium (Cozaar -) 100 mg PO DAILY [facility] Last Admin: 08/09/19 10:05 Dose: 100 mg Rosuvastatin Calcium (Crestor -) 5 mg PO HS [facility] Last Admin: 08/09/19 21:20 Dose: 5 mg Tamsulosin HCl (Flomax -) 0.4 mg PO DAILY [facility] Last Admin: 08/09/19 10:05 Dose: 0.4 mg - Objective Vital Signs: Vital Signs Temperature 98.1 F 08/10/19 06:00 Pulse Rate 62 08/10/19 06:00 Respiratory Rate 18 08/10/19 06:00 Blood Pressure 166/99 08/10/19 06:00 O2 Sat by Pulse Oximetry (%) 96 08/09/19 20:13 Constitutional: Yes: Well Nourished, Calm Eyes: Yes: WNL HENT: Yes: WNL Neck: Yes: WNL Cardiovascular: Yes: Pulse Irregular, S1, S2 Respiratory: Yes: CTA Bilaterally Gastrointestinal: Yes: Normal Bowel Sounds, Soft Extremities: Yes: WNL Edema: No Labs: CBC, BMP 08/08/19 06:58 Problem List - Problems (1) BPH (benign prostatic hyperplasia) Code(s): N40.0 - BENIGN PROSTATIC HYPERPLASIA WITHOUT LOWER URINRY TRACT SYMP (2) Syncope Code(s): R55 - SYNCOPE AND COLLAPSE (3) Chest pain Code(s): R07.9 - CHEST PAIN, UNSPECIFIED Qualifiers: Chest pain type: other chest pain Qualified Code(s): R07.89 - Other chest pain (4) Coronary artery disease Code(s): I25.10 - ATHSCL HEART DISEASE OF [place] CORONARY ARTERY W/O ANG PCTRS (5) Hypertension Code(s): I10 - ESSENTIAL (PRIMARY) HYPERTENSION Qualifiers: Hypertension type: unspecified Qualified Code(s): I10 - Essential (primary ) hypertension (6) Obstructive sleep apnea Code(s): G47.33 - OBSTRUCTIVE SLEEP APNEA (ADULT) (PEDIATRIC) (7) Paroxysmal atrial fibrillation Code(s): I48.0 - PAROXYSMAL ATRIAL FIBRILLATION (8) Polycythemia Code(s): D75.1 - SECONDARY POLYCYTHEMIA Assessment/Plan A/P Suspected Obstructive Sleep Apnea AHI 27 on sleep screen Syncope Hypertensive Urgency stable Polycythemia Paroxysmal Atrial Fibrillation BPH h/o CVA - outpt NPSG - rate controlled - BP control - anticoagulation DR BROOKS
--- NOTE | 2019-08-10 11:08 | PN ---
Progress Note (short form) - Note Progress Note: s: no chest pain, palps, dizziness, dyspnea Current Medications Amlodipine Besylate (Norvasc -) 10 mg PO DAILY [facility] Apixaban (Eliquis -) 5 mg PO BID [facility] Last Admin: 08/09/19 21:20 Dose: 5 mg Carvedilol (Coreg -) 25 mg PO BID [facility] Last Admin: 08/09/19 21:20 Dose: 25 mg Clonidine HCl (Catapres Tts Patch -) 0.2 mg TD Q7D@1000 [facility] Donepezil HCl (Aricept -) 5 mg PO DAILY [facility] Last Admin: 08/09/19 10:05 Dose: 5 mg Losartan Potassium (Cozaar -) 100 mg PO DAILY [facility] Last Admin: 08/09/19 10:05 Dose: 100 mg Rosuvastatin Calcium (Crestor -) 5 mg PO HS [facility] Last Admin: 08/09/19 21:20 Dose: 5 mg Tamsulosin HCl (Flomax -) 0.4 mg PO DAILY [facility] Last Admin: 08/09/19 10:05 Dose: 0.4 mg Vital Signs Period Temp Pulse Resp BP Sys/Kirkpatrick Pulse Ox Last 24 Hr 97.1 F-98.8 F 58-64 18-20 138-179/82-99 96 Constitutional: Yes: Well Nourished, No Distress, Calm Cardiovascular: Yes: Regular Rate and Rhythm, S1, S2. No: Gallop, Murmur Respiratory: Yes: Regular, CTA Bilaterally. No: Accessory Muscle Use, Rales, Wheezes Extremities: No: Cold Edema: No Neurological: Yes: Alert, Oriented Psychiatric: No: Agitated Assessment/Plan Echo 06/16/19- EF 55-60%, lvsf normal, mild-mod septal hypertrophy, trace-mild MR , mild TR Carotid 06/16/19- no evidence of a high grade internal carotid artery stenosis is identified EKG: sinus, nl intervals, nonspecific ST changes CT head: no acute. + chronic infarcts tele: NSR, artifact syncope - hx uncertain--reports he felt unsteady, confused and fell, thinks he lost consciousness with reported bp upon awakening 205/135 mmHg. does not recall the actual fall - monitoring on tele - no events - recent echo, carotid dopplers unremarkable - trop neg x3, EKG no ischemic changes - unlikely ACS - orthostatics negative HTN - likely 2/2 noncompliance - suboptimal BPs here jamal in the evening - changed metoprolol to carvedilol 12.5 mg BID - cont clonidine, losartan, carvedilol polycythemia - manage per primary afib - cont eliquis, change to carvedilol as above old strokes (on CT): - cont AC, statin, bp control dementia - manage per primary HEATHER - not using CPAP - per pmd, pulm stable for dc from cardiac perspective
[2019-08-10] MEDS: CARVEDILOL 25 MG TABLET (FP) PO SCH (11:17)
[2019-08-10] MEDS: DONEPEZIL HCL 5 MG TABLET (FP) PO SCH (11:17)
[2019-08-10] MEDS: APIXABAN 5 MG TABLET PO SCH (11:17)
[2019-08-10] MEDS: TAMSULOSIN HCL 0.4 MG CAP PO SCH (11:18)
[2019-08-10] MEDS: LOSARTAN POTASSIUM 50 MG TABLET (FP) PO SCH (11:18)
[2019-08-10 13:27] VITALS: BP 136/58; PULSE 64; TEMP 97.9
[2019-08-14] MEDS ORDERED: cloNIDine-TTS 0.2 MG/24 HOURS PATCH.TDWK TD SCH (10:00)
== END 2019-08-10 13:52 | disposition home health service (06) | DRG 312 ==
LOC: JER 18:57 → JERBED 21:51 → J4W 08-06 01:19
PROVIDERS: ADMIT Internal Medicine; ATTEND Family Medicine
DX: R55 Syncope and collapse (principal); I16.1 Hypertensive emergency; I48.0 Paroxysmal atrial fibrillation; I10 Essential (primary) hypertension; D75.1 Secondary polycythemia; F03.90 Unspecified dementia, unspecified severity, without behavioral disturbance, psychotic disturbance, mood disturbance, and anxiety; N40.0 Benign prostatic hyperplasia without lower urinary tract symptoms; R51 Headache; G47.33 Obstructive sleep apnea (adult) (pediatric); E78.5 Hyperlipidemia, unspecified; R07.89 Other chest pain; Z86.73 Personal history of transient ischemic attack (TIA), and cerebral infarction without residual deficits; Z91.19 Patient's noncompliance with other medical treatment and regimen
CPT/HCPCS: 36415; 70450-TC; 71045-TC-FY; 80048; 80053; 81003; 82465; 82550; 82553; 83718; 83721; 83735; 84100; 84443; 84478; 84484; 85025; 85027; 85610; 85730; 86850; 86900; 86901; 93005; 93010; 99285-25; J0131; J7030

== ENCOUNTER 2022-05-27 12:51 | Emergency (ER) | payer OTHER ==
[2022-05-27 13:19] VITALS: BP 163/100; PULSE 63; RESP 16; TEMP 98.5; BMI 38.3
[2022-05-27] MEDS ORDERED: ACETAMINOPHEN 325 MG TABLET (FP) PO ONE (13:44)
[2022-05-27] MEDS ORDERED: ACETAMINOPHEN 325 MG TABLET (FP) ONE (13:47)
== END 2022-05-27 17:52 | disposition home or self-care (01) ==
LOC: JER 12:51
DX: S30.0XXA Contusion of lower back and pelvis, initial encounter (principal); W01.0XXA Fall on same level from slipping, tripping and stumbling without subsequent striking against object, initial encounter
CPT/HCPCS: 70450-TC; 72125-TC; 72131-TC; 99285-25